=== PATIENT | male | born 1990 | race American Indian/Alaskan Native ===

== ENCOUNTER 2017-04-07 00:36 | Emergency (ER) | payer OTHER ==
[2017-04-07 01:50] LABS: Basophils % (Auto) 0.5 % (0.0-1.8); Hematocrit 44.9 % (35.5-45.6); Hemoglobin 15.1 gm/dl (11.8-15.2); Mean Corpuscular HGB Conc 34 % (32-34); Mean Corpuscular Hemoglobin 29 pg (28-32); Mean Corpuscular Volume 85 fl (84-94); Platelet Count 301 K/mm3 (140-440); Red Blood Count 5.31 M/mm3 (3.65-5.03); Red Cell Distribution Width 13.9 % (13.2-15.2); White Blood Count 12.4 K/mm3 (4.5-11.0)
[2017-04-07 02:07] LABS: Anion Gap 21 mmol/L; BUN/Creatinine Ratio 8; Blood Urea Nitrogen 10 mg/dL (9-20); Calcium 9.9 mg/dL (8.4-10.2); Carbon Dioxide 22 mmol/L (22-30); Chloride 101.9 mmol/L (98-107); Glucose 111 mg/dL (75-100); Potassium 4.2 mmol/L (3.6-5.0); Sodium 141 mmol/L (137-145)
[2017-04-07 04:35] VITALS: BP 127/76
== END 2017-04-07 12:10 | disposition left against medical advice (07) ==
LOC: ED 00:36
DX: R00.2 Palpitations (principal); Z53.21 Procedure and treatment not carried out due to patient leaving prior to being seen by health care provider
CPT/HCPCS: 36415; 80048; 84484; 85025; 93005; 93010

== ENCOUNTER 2017-04-27 14:14 | Inpatient (IN) | payer SELFPAY ==
[2017-04-27] MEDS ORDERED: NACL 0.9% 1000 ML 1,000 ML IV ONE ×3 (14:36→17:41)
[2017-04-27] MEDS ORDERED: ATIVAN IV ONE (14:41)
--- NOTE | 2017-04-27 15:14 | XRay Report ---
AP CHEST: HISTORY: chest pain AP view of the chest demonstrates a normal mediastinal and cardiac contour with clear lungs and normal bony and soft tissue structures. IMPRESSION: Unremarkable AP chest.
[2017-04-27 15:23] LABS: Hematocrit 43.3 % (35.5-45.6); Hemoglobin 13.7 gm/dl (11.8-15.2); Mean Corpuscular HGB Conc 32 % (32-34); Mean Corpuscular Hemoglobin 28 pg (28-32); Mean Corpuscular Volume 88 fl (84-94); Platelet Count 315 K/mm3 (140-440); Red Blood Count 4.92 M/mm3 (3.65-5.03); Red Cell Distribution Width 14.1 % (13.2-15.2)
[2017-04-27] MEDS ORDERED: GEODON IM ONE (15:31)
[2017-04-27 15:53] LABS: Calcium 9.1 mg/dL (8.4-10.2)
[2017-04-27 15:59] LABS: Basophils % (Manual) 0 % (0.0-1.8); Monocytes % (Manual) 7.5 % (0.0-7.3); Myelocytes # (Manual) 0.6 K/mm3; Total Cells Counted 200
[2017-04-27 16:00] LABS: Anisocytosis 1+; Poikilocytosis Few
[2017-04-27] MEDS ORDERED: ASPIRIN PO ONE (16:49)
--- NOTE | 2017-04-27 17:39 | Emergency Department Report ---
ED Altered Mental Status HPI - General Chief Complaint: Altered Mental Status Stated Complaint: AMS Time Seen by Provider: 04/27/17 14:35 Source: police, EMS Mode of arrival: Stretcher Limitations: Altered Mental Status - History of Present Illness Initial Comments: He is a 26-year-old [place] male who was found in the middle of the street in the rain yelling and diaphoretic patient admitted to cocaine use today. Patient very agitated and will not give any additional history. Patient will not answer whether he isn't having chest pain or shortness of breath patient is just very agitated and states "I think he's trying to kill me". Patient is repeating this over and over and will not give any additional issue of what happened today. MD Complaint: altered mental status, confusion, intoxication Severity: severe Associated Symptoms: diaphoresis - Related Data Previous Rx's Medication Instructions Recorded Last Taken Type Amoxicillin/Potassium Clav 1 each PO TID #21 tablet 02/13/17 Unknown Rx [Augmentin 500-125 Tablet] Allergies Allergy/AdvReac Type Severity Reaction Status Date / Time No Known Allergies Allergy Unverified 02/12/17 23:28 ED Review of Systems ROS: Stated complaint: AMS Other details as noted in HPI Comment: Unobtainable due to pts medical conditions ED Past Medical Hx - Past Medical History Additional medical history: chronic bronchitis - Social History Smoking Status: Current Every Day Smoker Substance Use Type: Alcohol - Medications Home Medications: Home Medications Medication Instructions Recorded Confirmed Last Taken Type Amoxicillin/Potassium Clav 1 each PO TID #21 tablet 02/13/17 Unknown Rx [Augmentin 500-125 Tablet] ED Physical Exam - General Limitations: Altered Mental Status General appearance: alert, anxious, in distress - Head Head exam: Present: atraumatic, normocephalic - Eye Eye exam: Present: normal appearance - ENT ENT exam: Present: mucous membranes moist - Neck Neck exam: Present: normal inspection - Respiratory Respiratory exam: Present: normal lung sounds bilaterally. Absent: respiratory distress, wheezes, rales, rhonchi - Cardiovascular Cardiovascular Exam: Present: normal rhythm, tachycardia. Absent: systolic murmur, diastolic murmur, rubs, gallop - GI/Abdominal GI/Abdominal exam: Present: soft, normal bowel sounds. Absent: distended, tenderness, guarding, rebound - Rectal Rectal exam: Present: deferred - Extremities Exam Extremities exam: Present: normal inspection - Back Exam Back exam: Present: normal inspection - Neurological Exam Neurological exam: Present: alert, oriented X3 - Psychiatric Psychiatric exam: Present: agitated, anxious, manic - Skin Skin exam: Present: warm, intact, normal color, diaphoretic. Absent: rash ED Course Vital Signs 04/27/17 15:46 Temperature 98.8 F Pulse Rate 130 H Respiratory 24 Rate Blood Pressure 98/58 [Right] O2 Sat by Pulse 100 Oximetry - Lab Data Result diagrams: 04/27/17 15:06 04/27/17 15:06 Lab Results 04/27/17 04/27/17 Range/Units 15:06 15:06 WBC 28.6 H (4.5-11.0) K/mm3 RBC 4.92 (3.65-5.03) M/mm3 Hgb 13.7 (11.8-15.2) gm/dl Hct 43.3 (35.5-45.6) % MCV 88 (84-94) fl MCH 28 (28-32) pg MCHC 32 (32-34) % RDW 14.1 (13.2-15.2) % Plt Count 315 (140-440) K/mm3 Lymph # Crew Mess Attendant Add Manual Diff Complete Total Counted 200 Seg Neuts % (Manual) 59.0 (40.0-70.0) % Band Neutrophils % 0 % Lymphocytes % (Manual) 29.5 (13.4-35.0) % Reactive Lymphs % (Man) 0 % Monocytes % (Manual) 7.5 H (0.0-7.3) % Eosinophils % (Manual) 2.0 (0.0-4.3) % Basophils % (Manual) 0 (0.0-1.8) % Metamyelocytes % 0 % Myelocytes % 2.0 % Promyelocytes % 0 % Blast Cells % 0 % Nucleated RBC % Not Reportable Seg Neutrophils # Man 16.9 H (1.8-7.7) K/mm3 Band Neutrophils # 0.0 K/mm3 Lymphocytes # (Manual) 8.4 H (1.2-5.4) K/mm3 Abs React Lymphs (Man) 0.0 K/mm3 Monocytes # (Manual) 2.1 H (0.0-0.8) K/mm3 Eosinophils # (Manual) 0.6 H (0.0-0.4) K/mm3 Basophils # (Manual) 0.0 (0.0-0.1) K/mm3 Metamyelocytes # 0.0 K/mm3 Myelocytes # 0.6 K/mm3 Promyelocytes # 0.0 K/mm3 Blast Cells # 0.0 K/mm3 WBC Morphology Not Reportable Hypersegmented Neuts Not Reportable Hyposegmented Neuts Not Reportable Hypogranular Neuts Not Reportable Smudge Cells Not Reportable Toxic Granulation Not Reportable Toxic Vacuolation Not Reportable Dohle Bodies Not Reportable Pelger-Huet Anomaly Not Reportable Lizette Rods Not Reportable Platelet Estimate Appears normal Clumped Platelets Not Reportable Plt Clumps, EDTA Not Reportable Large Platelets Not Reportable Giant Platelets Not Reportable Platelet Satelliting Not Reportable Plt Morphology Comment Not Reportable RBC Morphology Not Reportable Dimorphic RBCs Not Reportable Polychromasia Not Reportable Hypochromasia Not Reportable Poikilocytosis Few Anisocytosis 1+ Microcytosis Not Reportable Macrocytosis Not Reportable Spherocytes Not Reportable Pappenheimer Bodies Not Reportable Sickle Cells Not Reportable Target Cells Not Reportable Tear Drop Cells Not Reportable Ovalocytes Not Reportable Helmet Cells Not Reportable [place] Bodies Not Reportable [place] Rings Not Reportable [place] Cells Not Reportable Bite Cells Not Reportable Crenated Cell Not Reportable Elliptocytes Not Reportable Acanthocytes (Spur) Not Reportable Rouleaux Not Reportable Hemoglobin C Crystals Not Reportable Schistocytes Not Reportable Malaria parasites Not Reportable Noel Bodies Not Reportable Hem Pathologist Commnt No Sodium 144 (137-145) mmol/L Potassium 5.2 H (3.6-5.0) mmol/L Chloride 103.3 (98-107) mmol/L Carbon Dioxide 7 L* (22-30) mmol/L Anion Gap 39 mmol/L BUN 16 (9-20) mg/dL Creatinine 2.5 H (0.8-1.5) mg/dL Estimated GFR 38 ml/min BUN/Creatinine Ratio 6 % Glucose 159 H (75-100) mg/dL Calcium 9.1 (8.4-10.2) mg/dL Total Bilirubin 0.30 (0.1-1.2) mg/dL AST 54 H (5-40) units/L ALT 12 (7-56) units/L Alkaline Phosphatase 70 (35-129) units/L Troponin T 0.310 H* (0.00-0.029) ng/mL Total Protein 6.5 (6.3-8.2) g/dL Albumin 4.0 (3.9-5) g/dL Albumin/Globulin Ratio 1.6 % - EKG Data -: EKG Interpreted by Me Interpretation: other (EKG on arrival shows sinus tachycardia at 176 with right axis deviation and prolonged QT there is no obvious ST elevation or depression, interpretation 1438) - Radiology Data Radiology results: report reviewed No acute process - Medical Decision Making Patient is a 26-year-old asthmatic male who is presenting after cocaine ingestion with altered mental status and juan. Patient noted to have elevated blood pressure on arrival. Patient was given several doses of adenosine to slow him down to see if this was SVT versus a tachycardia. The patient was in just a sinus tachycardia. Patient gives several liters of normal saline to improve blood pressure and bring down the heart rate. Patient given Geodon for agitation. Patient has an elevated troponin most likely secondary to his cocaine use. Patient started on heparin Critical Care Time: Yes Critical care time in (mins) excluding proc time.: 30 Critical care attestation.: If time is entered above; I have spent that time in minutes in the direct care of this critically ill patient, excluding procedure time. ED Disposition Clinical Impression: NSTEMI (non-ST elevated myocardial infarction) Cocaine abuse with cocaine-induced psychotic disorder Qualifiers: Complication of substance-induced condition: with delusions Qualified Code(s): F14.150 - Cocaine abuse with cocaine-induced psychotic disorder with delusions Disposition: DC-09 OP ADMIT IP TO THIS HOSP Is pt being admited?: Yes Does the pt Need Aspirin: No Condition: Serious Referrals: PRIMARY CARE, [Primary Care Provider] - 3-5 Days
[2017-04-27] MEDS ORDERED: HEPARIN IV ONE (17:41)
[2017-04-27] MEDS ORDERED: NACL 0.9% 1000 ML 1,000 ML IV SCH (18:00)
[2017-04-27] MEDS ORDERED: FLUSH HEPARIN IV ONE (18:48)
[2017-04-27 19:08] LABS: Amphetamine Screen,Urine PRESUMPTIVE NEGATIVE; Cannabinoid Screen,Urine PRESUMPTIVE NEGATIVE; Methadone Screen,Urine PRESUMPTIVE NEGATIVE; Opiate Screen,Urine PRESUMPTIVE NEGATIVE
[2017-04-27] MEDS ORDERED: HEPARIN/ 0.45% NACL-25,000 UNIT/500 ML 25,000 UNIT/500 ML BAG ONE (19:24)
[2017-04-27] MEDS ORDERED: HEPARIN 10,000 UNITS/10 ML ONE (19:28)
[2017-04-27] MEDS: HEPARIN/ 0.45% NACL-25,000 UNIT/500 ML 25,000 UNIT/500 ML BAG IV SCH (19:31)
[2017-04-27 19:40] LABS: Benzodiazepines Screen,Urine PRESUMPTIVE POSITIVE; Cocaine Screen,Urine PRESUMPTIVE POSITIVE
[2017-04-27 21:06] LABS: Chol/HDL Ratio 6.51 %
--- NOTE | 2017-04-27 23:50 | History and Physical Report ---
History of Present Illness Date of examination: 04/27/17 Date of admission: 04/27/17 17:43 Chief complaint: CC Patient agitated and confused few hours History of present illness: History of Present Illness 26-year-old male found in the middle of the street in the rain yelling and Agitated. patient admitted to cocaine use today. Patient very agitated and will not give any additional history. Patient will not answer whether he is having chest pain or shortness of breath. Patient is just very agitated and states "I think he's trying to kill me". Patient is repeating this over and over and will not give any additional issue of what happened today. Altered mental status, confusion, intoxication Severity: severe Associated Symptoms: diaphoresis Past Medical History Additional medical history: chronic bronchitis Surg History Not available - Social History Smoking Status: Current Every Day Smoker Substance Use Type: Alcohol Cocaine use - Medications Home Medications: Home Medications Medication Instructions Recorded Confirmed Last Taken Type Amoxicillin/Potassium Clav 1 each PO TID #21 tablet 02/13/17 Unknown Rx [Augmentin 500-125 Tablet] Past History Past Medical History: No medical history Past Surgical History: No surgical history Social history: full code, other (cocaine use). denies: smoking Family history: hypertension Medications and Allergies Allergies Allergy/AdvReac Type Severity Reaction Status Date / Time No Known Allergies Allergy Unverified 02/12/17 23:28 Home Medications Medication Instructions Recorded Confirmed Last Taken Type No Known Home Medications [No 04/27/17 04/27/17 Unknown History Reported Home Medications] Active Meds: Active Medications Heparin Sodium/Sodium Chloride (Heparin/ 0.45% Nacl-25,000 Unit/500 Ml) 25,000 unit in 500 mls @ 20 mls/hr IV TITRATE EMERY; 1,000 UNITS/HR PRN Reason: Protocol Last Admin: 04/27/17 19:31 Dose: 1,000 units/hr, 20 mls/hr Sodium Chloride (Nacl 0.9% 1000 Ml) 1,000 mls @ 42 mls/hr IV ONCE ONE Stop: 04/28/17 17:29 Last Admin: 04/27/17 19:52 Dose: 42 mls/hr Sodium Chloride (Nacl 0.9% 1000 Ml) 1,000 mls @ 150 mls/hr IV DIRECT EMERY Review of Systems All systems: negative Cardiovascular: no chest pain, no orthopnea Respiratory: no cough Gastrointestinal: no abdominal pain, no nausea, no vomiting, no diarrhea, no constipation Genitourinary Male: no dysuria, no hematuria, no flank pain, no discharge, no urinary frequency, no urinary hesitancy Integumentary: no rash, no pruritis, no redness, no sores Neurological: no seizures, no syncope Psychiatric: disorientation, confusion, irritability Exam - Constitutional Vitals: Temp Pulse Resp BP Pulse Ox 97.5 F L 92 H 20 118/60 98 04/27/17 21:10 04/27/17 21:10 04/27/17 21:10 04/27/17 21:10 04/27/17 21:10 General appearance: Present: no acute distress, mild distress, well-nourished - EENT Eyes: Present: PERRL ENT: hearing intact, clear oral mucosa - Neck Neck: Present: supple, normal ROM - Respiratory Respiratory effort: normal Respiratory: bilateral: CTA - Cardiovascular Heart rate: 110 Rhythm: regular Heart Sounds: Present: S1 & S2. Absent: rub, click - Extremities Extremities: no ischemia, pulses intact, pulses symmetrical, No edema Peripheral Pulses: within normal limits - Abdominal General gastrointestinal: Present: soft, non-tender, non-distended, normal bowel sounds Male genitourinary: Present: normal - Integumentary Integumentary: Present: clear, warm, dry - Musculoskeletal Musculoskeletal: gait normal, strength equal bilaterally - Psychiatric Psychiatric: agitated, other (Cofused Altered sensorium) - Neurologic Neurologic: CNII-XII intact, moves all extremities - Allied Health Allied health notes reviewed: nursing, case management Results - Labs CBC & Chem 7: 04/27/17 15:06 04/27/17 15:06 Labs: Laboratory Last Values WBC 28.6 K/mm3 (4.5-11.0) H 04/27/17 15:06 RBC 4.92 M/mm3 (3.65-5.03) 04/27/17 15:06 Hgb 13.7 gm/dl (11.8-15.2) 04/27/17 15:06 Hct 43.3 % (35.5-45.6) 04/27/17 15:06 MCV 88 fl (84-94) 04/27/17 15:06 MCH 28 pg (28-32) 04/27/17 15:06 MCHC 32 % (32-34) 04/27/17 15:06 RDW 14.1 % (13.2-15.2) 04/27/17 15:06 Plt Count 315 K/mm3 (140-440) 04/27/17 15:06 Lymph # Rn Staff 04/27/17 15:06 Add Manual Diff Complete 04/27/17 15:06 Total Counted 200 04/27/17 15:06 Seg Neuts % (Manual) 59.0 % (40.0-70.0) 04/27/17 15:06 Band Neutrophils % 0 % 04/27/17 15:06 Lymphocytes % (Manual) 29.5 % (13.4-35.0) 04/27/17 15:06 Reactive Lymphs % (Man) 0 % 04/27/17 15:06 Monocytes % (Manual) 7.5 % (0.0-7.3) H 04/27/17 15:06 Eosinophils % (Manual) 2.0 % (0.0-4.3) 04/27/17 15:06 Basophils % (Manual) 0 % (0.0-1.8) 04/27/17 15:06 Metamyelocytes % 0 % 04/27/17 15:06 Myelocytes % 2.0 % 04/27/17 15:06 Promyelocytes % 0 % 04/27/17 15:06 Blast Cells % 0 % 04/27/17 15:06 Nucleated RBC % Not Reportable 04/27/17 15:06 Seg Neutrophils # Man 16.9 K/mm3 (1.8-7.7) H 04/27/17 15:06 Band Neutrophils # 0.0 K/mm3 04/27/17 15:06 Lymphocytes # (Manual) 8.4 K/mm3 (1.2-5.4) H 04/27/17 15:06 Abs React Lymphs (Man) 0.0 K/mm3 04/27/17 15:06 Monocytes # (Manual) 2.1 K/mm3 (0.0-0.8) H 04/27/17 15:06 Eosinophils # (Manual) 0.6 K/mm3 (0.0-0.4) H 04/27/17 15:06 Basophils # (Manual) 0.0 K/mm3 (0.0-0.1) 04/27/17 15:06 Metamyelocytes # 0.0 K/mm3 04/27/17 15:06 Myelocytes # 0.6 K/mm3 04/27/17 15:06 Promyelocytes # 0.0 K/mm3 04/27/17 15:06 Blast Cells # 0.0 K/mm3 04/27/17 15:06 WBC Morphology Not Reportable 04/27/17 15:06 Hypersegmented Neuts Not Reportable 04/27/17 15:06 Hyposegmented Neuts Not Reportable 04/27/17 15:06 Hypogranular Neuts Not Reportable 04/27/17 15:06 Smudge Cells Not Reportable 04/27/17 15:06 Toxic Granulation Not Reportable 04/27/17 15:06 Toxic Vacuolation Not Reportable 04/27/17 15:06 Dohle Bodies Not Reportable 04/27/17 15:06 Pelger-Huet Anomaly Not Reportable 04/27/17 15:06 Lizette Rods Not Reportable 04/27/17 15:06 Platelet Estimate Appears normal 04/27/17 15:06 Clumped Platelets Not Reportable 04/27/17 15:06 Plt Clumps, EDTA Not Reportable 04/27/17 15:06 Large Platelets Not Reportable 04/27/17 15:06 Giant Platelets Not Reportable 04/27/17 15:06 Platelet Satelliting Not Reportable 04/27/17 15:06 Plt Morphology Comment Not Reportable 04/27/17 15:06 RBC Morphology Not Reportable 04/27/17 15:06 Dimorphic RBCs Not Reportable 04/27/17 15:06 Polychromasia Not Reportable 04/27/17 15:06 Hypochromasia Not Reportable 04/27/17 15:06 Poikilocytosis Few 04/27/17 15:06 Anisocytosis 1+ 04/27/17 15:06 Microcytosis Not Reportable 04/27/17 15:06 Macrocytosis Not Reportable 04/27/17 15:06 Spherocytes Not Reportable 04/27/17 15:06 Pappenheimer Bodies Not Reportable 04/27/17 15:06 Sickle Cells Not Reportable 04/27/17 15:06 Target Cells Not Reportable 04/27/17 15:06 Tear Drop Cells Not Reportable 04/27/17 15:06 Ovalocytes Not Reportable 04/27/17 15:06 Helmet Cells Not Reportable 04/27/17 15:06 Conner-[place] Bodies Not Reportable 04/27/17 15:06 [place] Rings Not Reportable 04/27/17 15:06 [place] Cells Not Reportable 04/27/17 15:06 Bite Cells Not Reportable 04/27/17 15:06 Crenated Cell Not Reportable 04/27/17 15:06 Elliptocytes Not Reportable 04/27/17 15:06 Acanthocytes (Spur) Not Reportable 04/27/17 15:06 Rouleaux Not Reportable 04/27/17 15:06 Hemoglobin C Crystals Not Reportable 04/27/17 15:06 Schistocytes Not Reportable 04/27/17 15:06 Malaria parasites Not Reportable 04/27/17 15:06 Noel Bodies Not Reportable 04/27/17 15:06 Hem Pathologist Commnt No 04/27/17 15:06 Sodium 144 mmol/L (137-145) 04/27/17 15:06 Potassium 5.2 mmol/L (3.6-5.0) H 04/27/17 15:06 Chloride 103.3 mmol/L (98-107) 04/27/17 15:06 Carbon Dioxide 7 mmol/L (22-30) L* 04/27/17 15:06 Anion Gap 39 mmol/L 04/27/17 15:06 BUN 16 mg/dL (9-20) 04/27/17 15:06 Creatinine 2.5 mg/dL (0.8-1.5) H 04/27/17 15:06 Estimated GFR 38 ml/min 04/27/17 15:06 BUN/Creatinine Ratio 6 % 04/27/17 15:06 Glucose 159 mg/dL (75-100) H 04/27/17 15:06 Calcium 9.1 mg/dL (8.4-10.2) 04/27/17 15:06 Total Bilirubin 0.30 mg/dL (0.1-1.2) 04/27/17 15:06 AST 54 units/L (5-40) H 04/27/17 15:06 ALT 12 units/L (7-56) 04/27/17 15:06 Alkaline Phosphatase 70 units/L (35-129) 04/27/17 15:06 Total Creatine Kinase 1724 units/L (55-170) H 04/27/17 15:06 Troponin T 0.310 ng/mL (0.00-0.029) H* 04/27/17 15:06 Total Protein 6.5 g/dL (6.3-8.2) 04/27/17 15:06 Albumin 4.0 g/dL (3.9-5) 04/27/17 15:06 Albumin/Globulin Ratio 1.6 % 04/27/17 15:06 Triglycerides 93 mg/dL (2-149) 04/27/17 15:06 Cholesterol 202 mg/dL (50-199) H 04/27/17 15:06 LDL Cholesterol Direct 153 mg/dL (50-130) H 04/27/17 15:06 HDL Cholesterol 31 mg/dL (40-59) L 04/27/17 15:06 Cholesterol/HDL Ratio 6.51 % 04/27/17 15:06 Urine Opiates Screen Presumptive negative 04/27/17 15:36 Urine Methadone Screen Presumptive negative 04/27/17 15:36 Ur Barbiturates Screen Presumptive negative 04/27/17 15:36 Ur Phencyclidine Scrn Presumptive negative 04/27/17 15:36 Ur Amphetamines Screen Presumptive negative 04/27/17 15:36 U Benzodiazepines Scrn Presumptive positive 04/27/17 15:36 Urine Cocaine Screen Presumptive positive 04/27/17 15:36 U Marijuana (THC) Screen Presumptive negative 04/27/17 15:36 Drugs of Abuse Note Disclamer 04/27/17 15:36 - Imaging and Cardiology EKG: report reviewed (Sinus Tach 174) Assessment and Plan Advance Directives: Yes (Full code) VTE prophylaxis?: Chemical Plan of care discussed with patient/family: Yes - Patient Problems (1) Encephalopathy acute Current Visit: Yes Status: Acute Plan to address problem: Sec to Cocaine use (2) Cocaine abuse with cocaine-induced psychotic disorder Current Visit: Yes Status: Acute Qualifiers: Complication of substance-induced condition: with delusions Qualified Code( s): F14.150 - 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 Troponin high along with CK of 1724 Will trend Troponin Lexiscan if necessary Patient in Tachycardia sec to Dehydration and cocaine use and withdrawal Mental health consult (5) Metabolic acidosis Current Visit: Yes Status: Acute Plan to address problem: Bicarb and iv fluids (6) CAIO (acute kidney injury) Current Visit: Yes Status: Acute Plan to address problem: IV fluids for now (7) Leukocytosis Current Visit: Yes Status: Acute Plan to address problem: Possible Demargination Started on Rocephin empirically. Maybe d/c'd in 48 hrs if culturres negative (8) DVT prophylaxis Current Visit: Yes Status: Acute Plan to address problem: lovenox 40 sq qd
[2017-04-28] MEDS ORDERED: TYLENOL PO PRN (03:08)
[2017-04-28] MEDS ORDERED: MORPHINE IV PRN (03:08)
[2017-04-28] MEDS ORDERED: ZOFRAN IV PRN (03:08)
[2017-04-28] MEDS ORDERED: MILK OF MAGNESIA PO PRN (03:08)
[2017-04-28] MEDS ORDERED: DULCOLAX PR PRN (03:08)
[2017-04-28] MEDS ORDERED: D5NS 1,000 ML IV SCH (04:00)
[2017-04-28 06:39] LABS: INR 2.45 (0.87-1.13); Partial Thromboplastin Time 42.9 Sec. (24.2-36.6)
[2017-04-28 06:41] LABS: INR 2.52 (0.87-1.13)
[2017-04-28 06:42] LABS: Partial Thromboplastin Time 46.9 Sec. (24.2-36.6)
[2017-04-28] MEDS: HEPARIN/ 0.45% NACL-25,000 UNIT/500 ML 25,000 UNIT/500 ML BAG IV SCH (06:59)
[2017-04-28 07:09] LABS: Heparin anti-factor XA < 0.10 U.I./ml (0.3-0.7)
[2017-04-28] MEDS ORDERED: cefTRIAXone 2 GM in NACL 0.9% 20 ML IV SCH (10:00)
[2017-04-28] MEDS ORDERED: ROCEPHIN/NS 2 GM/100 ML 2 GM/100 ML BAG IV SCH (10:00)
--- NOTE | 2017-04-28 11:09 | Progress Note ---
Assessment and Plan Assessment and plan: 26-year-old male found in the middle of the street in the rain yelling and Agitated. patient admitted to cocaine use today. Patient very agitated and will not give any additional history. Patient will not answer whether he is having chest pain or shortness of breath. Patient is just very agitated and states "I think he's trying to kill me". Patient is repeating this over and over and will not give any additional issue of what happened today. toxic Encephalopathy acute Sec to Cocaine use Cocaine abuse with cocaine-induced psychotic disorder IV fluids and CIWA protocol consult Hyperkalemia Mild IV fluids for now Recheck K level NSTEMI (non-ST elevated myocardial infarction) given cocaine use, on heparin drip, cardiology consult Metabolic acidosis Bicarb and iv fluids CAIO (acute kidney injury)/vasomotor nephropathy IV fluids and IV bicarbonates, nephrology consult and renal ultrasound has been ordered DVT prophylaxis lovenox 40 sq qd History Interval history: Review of systems Constitutional: No fevers, no malaise, no joint pains CVS: No chest pain, no orthopnea, no dyspnea on exertion, no pedal edema GI: No abdominal pain, no diarrhea, no vomiting, no constipation Respiratory: No shortness of breath, no wheezing, no coughing Hospitalist Physical - Physical exam Narrative exam: General.: Appears well, no distress, nontoxic HEENT: Moist mucous membranes, extraocular muscles intact, no lymphadenopathy Neck: supple Cardiac: S1-S2 heard Lungs: clear to auscultation bilaterally Abdomen: soft , nontender, nondistended, bowel sounds positive Extremities: no edema clubbing or cyanosis Skin: no rash or lesions Neurologic: no gross focal deficits Psych: appropriate behavior, appropriate mood, corporative, judgment intact - Constitutional Vitals: Temp Pulse Resp BP Pulse Ox 98.6 F 101 H 20 152/91 98 04/28/17 06:14 04/28/17 09:08 04/28/17 08:48 04/28/17 06:14 04/28/17 10:07 General appearance: Present: no acute distress, mild distress, well-nourished Results - Labs CBC & Chem 7: 04/28/17 12:10 04/28/17 12:10 Labs: Laboratory Last Values WBC 28.6 K/mm3 (4.5-11.0) H 04/27/17 15:06 RBC 4.92 M/mm3 (3.65-5.03) 04/27/17 15:06 Hgb 13.7 gm/dl (11.8-15.2) 04/27/17 15:06 Hct 43.3 % (35.5-45.6) 04/27/17 15:06 MCV 88 fl (84-94) 04/27/17 15:06 MCH 28 pg (28-32) 04/27/17 15:06 MCHC 32 % (32-34) 04/27/17 15:06 RDW 14.1 % (13.2-15.2) 04/27/17 15:06 Plt Count 315 K/mm3 (140-440) 04/27/17 15:06 Lymph # Histology Aide 04/27/17 15:06 Add Manual Diff Complete 04/27/17 15:06 Total Counted 200 04/27/17 15:06 Seg Neuts % (Manual) 59.0 % (40.0-70.0) 04/27/17 15:06 Band Neutrophils % 0 % 04/27/17 15:06 Lymphocytes % (Manual) 29.5 % (13.4-35.0) 04/27/17 15:06 Reactive Lymphs % (Man) 0 % 04/27/17 15:06 Monocytes % (Manual) 7.5 % (0.0-7.3) H 04/27/17 15:06 Eosinophils % (Manual) 2.0 % (0.0-4.3) 04/27/17 15:06 Basophils % (Manual) 0 % (0.0-1.8) 04/27/17 15:06 Metamyelocytes % 0 % 04/27/17 15:06 Myelocytes % 2.0 % 04/27/17 15:06 Promyelocytes % 0 % 04/27/17 15:06 Blast Cells % 0 % 04/27/17 15:06 Nucleated RBC % Not Reportable 04/27/17 15:06 Seg Neutrophils # Man 16.9 K/mm3 (1.8-7.7) H 04/27/17 15:06 Band Neutrophils # 0.0 K/mm3 04/27/17 15:06 Lymphocytes # (Manual) 8.4 K/mm3 (1.2-5.4) H 04/27/17 15:06 Abs React Lymphs (Man) 0.0 K/mm3 04/27/17 15:06 Monocytes # (Manual) 2.1 K/mm3 (0.0-0.8) H 04/27/17 15:06 Eosinophils # (Manual) 0.6 K/mm3 (0.0-0.4) H 04/27/17 15:06 Basophils # (Manual) 0.0 K/mm3 (0.0-0.1) 04/27/17 15:06 Metamyelocytes # 0.0 K/mm3 04/27/17 15:06 Myelocytes # 0.6 K/mm3 04/27/17 15:06 Promyelocytes # 0.0 K/mm3 04/27/17 15:06 Blast Cells # 0.0 K/mm3 04/27/17 15:06 WBC Morphology Not Reportable 04/27/17 15:06 Hypersegmented Neuts Not Reportable 04/27/17 15:06 Hyposegmented Neuts Not Reportable 04/27/17 15:06 Hypogranular Neuts Not Reportable 04/27/17 15:06 Smudge Cells Not Reportable 04/27/17 15:06 Toxic Granulation Not Reportable 04/27/17 15:06 Toxic Vacuolation Not Reportable 04/27/17 15:06 Dohle Bodies Not Reportable 04/27/17 15:06 Pelger-Huet Anomaly Not Reportable 04/27/17 15:06 Lizette Rods Not Reportable 04/27/17 15:06 Platelet Estimate Appears normal 04/27/17 15:06 Clumped Platelets Not Reportable 04/27/17 15:06 Plt Clumps, EDTA Not Reportable 04/27/17 15:06 Large Platelets Not Reportable 04/27/17 15:06 Giant Platelets Not Reportable 04/27/17 15:06 Platelet Satelliting Not Reportable 04/27/17 15:06 Plt Morphology Comment Not Reportable 04/27/17 15:06 RBC Morphology Not Reportable 04/27/17 15:06 Dimorphic RBCs Not Reportable 04/27/17 15:06 Polychromasia Not Reportable 04/27/17 15:06 Hypochromasia Not Reportable 04/27/17 15:06 Poikilocytosis Few 04/27/17 15:06 Anisocytosis 1+ 04/27/17 15:06 Microcytosis Not Reportable 04/27/17 15:06 Macrocytosis Not Reportable 04/27/17 15:06 Spherocytes Not Reportable 04/27/17 15:06 Pappenheimer Bodies Not Reportable 04/27/17 15:06 Sickle Cells Not Reportable 04/27/17 15:06 Target Cells Not Reportable 04/27/17 15:06 Tear Drop Cells Not Reportable 04/27/17 15:06 Ovalocytes Not Reportable 04/27/17 15:06 Helmet Cells Not Reportable 04/27/17 15:06 Conner-Reform Bodies Not Reportable 04/27/17 15:06 [place] Rings Not Reportable 04/27/17 15:06 [place] Cells Not Reportable 04/27/17 15:06 Bite Cells Not Reportable 04/27/17 15:06 Crenated Cell Not Reportable 04/27/17 15:06 Elliptocytes Not Reportable 04/27/17 15:06 Acanthocytes (Spur) Not Reportable 04/27/17 15:06 Rouleaux Not Reportable 04/27/17 15:06 Hemoglobin C Crystals Not Reportable 04/27/17 15:06 Schistocytes Not Reportable 04/27/17 15:06 Malaria parasites Not Reportable 04/27/17 15:06 Noel Bodies Not Reportable 04/27/17 15:06 Hem Pathologist Commnt No 04/27/17 15:06 PT 28.1 Sec. (12.2-14.9) H 04/28/17 05:30 INR 2.45 (0.87-1.13) H 04/28/17 05:30 APTT 42.9 Sec. (24.2-36.6) H 04/28/17 05:30 Heparin Anti-Xa Level < 0.10 U.I./ml (0.3-0.7) L 04/28/17 05:30 Sodium 144 mmol/L (137-145) 04/27/17 15:06 Potassium 5.2 mmol/L (3.6-5.0) H 04/27/17 15:06 Chloride 103.3 mmol/L (98-107) 04/27/17 15:06 Carbon Dioxide 7 mmol/L (22-30) L* 04/27/17 15:06 Anion Gap 39 mmol/L 04/27/17 15:06 BUN 16 mg/dL (9-20) 04/27/17 15:06 Creatinine 2.5 mg/dL (0.8-1.5) H 04/27/17 15:06 Estimated GFR 38 ml/min 04/27/17 15:06 BUN/Creatinine Ratio 6 % 04/27/17 15:06 Glucose 159 mg/dL (75-100) H 04/27/17 15:06 Calcium 9.1 mg/dL (8.4-10.2) 04/27/17 15:06 Total Bilirubin 0.30 mg/dL (0.1-1.2) 04/27/17 15:06 AST 54 units/L (5-40) H 04/27/17 15:06 ALT 12 units/L (7-56) 04/27/17 15:06 Alkaline Phosphatase 70 units/L (35-129) 04/27/17 15:06 Total Creatine Kinase 1724 units/L (55-170) H 04/27/17 15:06 Troponin T 0.777 ng/mL (0.00-0.029) H* D 04/28/17 05:30 Total Protein 6.5 g/dL (6.3-8.2) 04/27/17 15:06 Albumin 4.0 g/dL (3.9-5) 04/27/17 15:06 Albumin/Globulin Ratio 1.6 % 04/27/17 15:06 Triglycerides 93 mg/dL (2-149) 04/27/17 15:06 Cholesterol 202 mg/dL (50-199) H 04/27/17 15:06 LDL Cholesterol Direct 153 mg/dL (50-130) H 04/27/17 15:06 HDL Cholesterol 31 mg/dL (40-59) L 04/27/17 15:06 Cholesterol/HDL Ratio 6.51 % 04/27/17 15:06 Urine Opiates Screen Presumptive negative 04/27/17 15:36 Urine Methadone Screen Presumptive negative 04/27/17 15:36 Ur Barbiturates Screen Presumptive negative 04/27/17 15:36 Ur Phencyclidine Scrn Presumptive negative 04/27/17 15:36 Ur Amphetamines Screen Presumptive negative 04/27/17 15:36 U Benzodiazepines Scrn Presumptive positive 04/27/17 15:36 Urine Cocaine Screen Presumptive positive 04/27/17 15:36 U Marijuana (THC) Screen Presumptive negative 04/27/17 15:36 Drugs of Abuse Note Disclamer 04/27/17 15:36 Blood Type A POSITIVE 04/27/17 05:30 Antibody Screen Negative 04/27/17 05:30
[2017-04-28 12:22] LABS: Hematocrit 40.8 % (35.5-45.6); Hemoglobin 13.2 gm/dl (11.8-15.2); Mean Corpuscular HGB Conc 33 % (32-34); Mean Corpuscular Hemoglobin 28 pg (28-32); Mean Corpuscular Volume 86 fl (84-94); Platelet Count 194 K/mm3 (140-440); Red Blood Count 4.77 M/mm3 (3.65-5.03); Red Cell Distribution Width 14.5 % (13.2-15.2)
[2017-04-28] MEDS ORDERED: ASPIRIN PO SCH (13:00)
[2017-04-28 13:33] LABS: Calcium 7.2 mg/dL (8.4-10.2)
[2017-04-28 14:53] VITALS: BP 133/62
[2017-04-28] MEDS ORDERED: SODIUM BICARBONATE 150 MEQ in D5W 1,000 ML IV SCH (15:00)
--- NOTE | 2017-04-28 16:09 | Discharge Summary ---
Providers - Providers Date of Admission: 04/27/17 17:43 Attending physician: SHELIA ROE MD 04/28/17 03:24 Consult to Mental Health [CONS] Routine Reason For Exam: cocaine use and agitation Place consult to:: Mental health Notified:: Cadence FORD 04/28/17 08:17 Consult to Physician [CONS] Routine Consulting Provider: TOBI RUSSO Reason For Exam: acs Place consult to:: Dr. Russo Notified:: Cadence FORD Phone number called:: Was contact made?: Yes If yes, spoke with:: [place] Time called:: 09:20 04/28/17 14:10 Consult to Physician [CONS] Routine Consulting Provider: CLARICE CHAVIRA Reason For Exam: [place] Place consult to:: Dr. Chavira Notified:: Cadence FORD Phone number called:: Was contact made?: Yes If yes, spoke with:: answering service-transfered to Dr. Chavira Time called:: 15:03 Primary care physician: FOLLOW UP CLERK Hospitalization Condition: Serious Hospital course: 26-year-old male found in the middle of the street in the rain yelling and Agitated. He had recently been started on cocaine. After which she was behaving erratically. He was admitted to the hospital , he received IV fluids. He was found to have significant acute kidney injury and metabolic acidosis. The patient was receiving IV fluids and was planned for bicarbonate drip. He did have elevated troponin which was most likely due to non-STEMI from cocaine use. He was planned for cardiology consult, nephrology consult and renal ultrasound. But the patient's mentation improved. He woke up and stated that he did not want to be in the hospital anymore and that he felt fine. He then signed himself out AGAINST MEDICAL ADVICE and left the hospital. Discharge diagnosis Acute toxic encephalopathy Cocaine abuse Cocaine induced psychotic disorder Non-STEMI Hyperkalemia Acute kidney injury/vasomotor nephropathy Metabolic acidosis Disposition: DC-07 LEFT AGAINST MED ADVICE Time spent for discharge: 33 minutes Core Measure Documentation - Palliative Care Palliative Care/ Comfort Measures: Not Applicable - Core Measures Any of the following diagnoses?: none Exam - Physical Exam Narrative exam: General.: Appears well, no distress, nontoxic HEENT: Moist mucous membranes, extraocular muscles intact, no lymphadenopathy Neck: supple Cardiac: S1-S2 heard Lungs: clear to auscultation bilaterally Abdomen: soft , nontender, nondistended, bowel sounds positive Extremities: no edema clubbing or cyanosis Skin: no rash or lesions Neurologic: no gross focal deficits Psych: appropriate behavior, appropriate mood, corporative, judgment intact - Constitutional Vitals: Temp Pulse Resp BP Pulse Ox 98.8 F 105 H 18 133/62 98 04/28/17 09:24 04/28/17 09:24 04/28/17 09:24 04/28/17 09:24 04/28/17 10:07 Plan Follow up with: PRIMARY CAREMD [Primary Care Provider] - 3-5 Days Forms: AMA Form
== END 2017-04-28 15:56 | disposition left against medical advice (07) | DRG 280 ==
LOC: ED 14:14 → 4A 17:43
PROVIDERS: ADMIT Internal Medicine; ATTEND Internal Medicine
DX: I21.4 Non-ST elevation (NSTEMI) myocardial infarction (principal); G92 Toxic encephalopathy; N17.0 Acute kidney failure with tubular necrosis; E87.2 Acidosis; F14.159 Cocaine abuse with cocaine-induced psychotic disorder, unspecified; F17.200 Nicotine dependence, unspecified, uncomplicated; J42 Unspecified chronic bronchitis; F14.19 Cocaine abuse with unspecified cocaine-induced disorder; E87.5 Hyperkalemia; D72.829 Elevated white blood cell count, unspecified; Z88.1 Allergy status to other antibiotic agents; Z79.2 Long term (current) use of antibiotics
CPT/HCPCS: 36415; 71045; 80048; 80053; 80061; 80307; 82550; 84484; 85007; 85025; 85027; 85520; 85610; 85730; 86850; 86900; 86901; 93005; 93010; 94760; J0696; J1642; J1644; J2060; J3486; J7030; J7042; J7070

== ENCOUNTER 2017-04-28 17:07 | Inpatient (IN) | payer OTHER ==
[2017-04-28 18:36] LABS: Hemoglobin 14.9 gm/dl (11.8-15.2); Mean Corpuscular HGB Conc 32 % (32-34); Mean Corpuscular Hemoglobin 28 pg (28-32); Mean Corpuscular Volume 89 fl (84-94); Platelet Count 175 K/mm3 (140-440); Red Blood Count 5.29 M/mm3 (3.65-5.03); Red Cell Distribution Width 14.9 % (13.2-15.2)
[2017-04-28 19:19] LABS: Basophils % (Manual) 0 % (0.0-1.8); Eosinophils % (Manual) 0 % (0.0-4.3); Total Cells Counted 100
[2017-04-28 19:20] LABS: Anisocytosis 1+
[2017-04-28 19:47] LABS: Albumin 3.7 g/dL (3.9-5); Calcium 7.5 mg/dL (8.4-10.2)
[2017-04-28] MEDS ORDERED: NACL 0.9% 1000 ML 1,000 ML IV ONE ×2 (20:26)
[2017-04-28] MEDS ORDERED: SODIUM BICARBONATE IV ONE (20:31)
--- NOTE | 2017-04-28 20:35 | Emergency Department Report ---
HPI - General Chief Complaint: Pain General Time Seen by Provider: 04/28/17 20:22 - HPI HPI: Room 8 The patient is a 26-year-old male presenting with a chief complaint of body aches. The patient was admitted to the hospital yesterday with metabolic encephalopathy secondary to cocaine use also associated with rhabdomyolysis and acute renal failure. The patient states he signed out AGAINST MEDICAL ADVICE earlier today because he thought he would "feel better." The patient states he continues to have body aches all over Location: [See above] Duration: [See above] Quality: Body aches Severity: Moderate Modifying factors: [see above] Context: [see above] Mode of transportation: [not driving] ED Past Medical Hx - Past Medical History Additional medical history: chronic bronchitis - Surgical History Past Surgical History?: No - Family History Family history: no significant - Social History Smoking Status: Current Every Day Smoker (1/2 pack per day) Substance Use Type: Alcohol (occasional), Cocaine - Medications Home Medications: Home Medications Medication Instructions Recorded Confirmed Last Taken Type No Known Home Medications [No 04/27/17 04/27/17 Unknown History Reported Home Medications] ED Review of Systems ROS: Stated complaint: BODY HURTS Other details as noted in HPI Musculoskeletal: myalgia Physical Exam - Physical Exam Vital Signs: Vital Signs 04/28/17 17:50 Temperature 98.8 F Pulse Rate 94 H Respiratory 18 Rate Blood Pressure 157/92 O2 Sat by Pulse 99 Oximetry Physical Exam: GENERAL: The patient is well-developed well-nourished male lying on stretcher not appearing to be in acute distress. [] HEENT: Normocephalic. Atraumatic. Extraocular motions are intact. Patient has moist mucous membranes. NECK: Supple. No meningitic signs are noted. There is no adenopathy noted. CHEST/LUNGS: Clear to auscultation. There is no respiratory distress noted. HEART/CARDIOVASCULAR: Regular. There is no tachycardia. There is no gallop rub or murmur. ABDOMEN: Abdomen is soft, nontender. Patient has normal bowel sounds. There is no abdominal distention. SKIN: There is no rash. There is no edema. There is no diaphoresis. NEURO: The patient is awake, alert, and oriented. The patient is cooperative. The patient has normal speech MUSCULOSKELETAL: There is no evidence of acute injury. ED Course Vital Signs 04/28/17 17:50 Temperature 98.8 F Pulse Rate 94 H Respiratory 18 Rate Blood Pressure 157/92 O2 Sat by Pulse 99 Oximetry - Consultations Consultation #1: 04/28/17 20:34 Nephrology paged 04/28/17 20:[address] Herrera- agrees with IV fluids and sodium bicarbonate. Recommends after 2 L bolus to initiate patient on normal saline at 150 mL/hour. Recommends renal ultrasound ED Medical Decision Making - Lab Data Result diagrams: 04/28/17 18:25 04/28/17 19:13 Laboratory Tests 04/28/17 04/28/17 18:25 19:13 WBC 20.3 H RBC 5.29 H Hgb 14.9 Hct 47.0 H D MCV 89 MCH 28 MCHC 32 RDW 14.9 Plt Count 175 Add Manual Diff Complete Total Counted 100 Seg Neutrophils % Breast Splitter Seg Neuts % (Manual) 91.0 H Band Neutrophils % 0 Lymphocytes % (Manual) 6.0 L Reactive Lymphs % (Man) 0 Monocytes % (Manual) 3.0 Eosinophils % (Manual) 0 Basophils % (Manual) 0 Metamyelocytes % 0 Myelocytes % 0 Promyelocytes % 0 Blast Cells % 0 Nucleated RBC % Not Reportable Seg Neutrophils # Man 18.5 H Band Neutrophils # 0.0 Lymphocytes # (Manual) 1.2 Abs React Lymphs (Man) 0.0 Monocytes # (Manual) 0.6 Eosinophils # (Manual) 0.0 Basophils # (Manual) 0.0 Metamyelocytes # 0.0 Myelocytes # 0.0 Promyelocytes # 0.0 Blast Cells # 0.0 WBC Morphology Not Reportable Hypersegmented Neuts Not Reportable Hyposegmented Neuts Not Reportable Hypogranular Neuts Not Reportable Smudge Cells Not Reportable Toxic Granulation Not Reportable Toxic Vacuolation Not Reportable Dohle Bodies Not Reportable Pelger-Huet Anomaly Not Reportable Lizette Rods Not Reportable Platelet Estimate Appears normal Clumped Platelets Not Reportable Plt Clumps, EDTA Not Reportable Large Platelets Not Reportable Giant Platelets Not Reportable Platelet Satelliting Not Reportable Plt Morphology Comment Not Reportable RBC Morphology Not Reportable Dimorphic RBCs Not Reportable Polychromasia Not Reportable Hypochromasia Not Reportable Poikilocytosis Not Reportable Anisocytosis 1+ Microcytosis Not Reportable Macrocytosis Not Reportable Spherocytes Not Reportable Pappenheimer Bodies Not Reportable Sickle Cells Not Reportable Target Cells Not Reportable Tear Drop Cells Not Reportable Ovalocytes Not Reportable Helmet Cells Not Reportable Conner-[place] Bodies Not Reportable [place] Rings Not Reportable [place] Cells Not Reportable Bite Cells Not Reportable Crenated Cell Not Reportable Elliptocytes Not Reportable Acanthocytes (Spur) Not Reportable Rouleaux Not Reportable Hemoglobin C Crystals Not Reportable Schistocytes Not Reportable Malaria parasites Not Reportable Noel Bodies Not Reportable Hem Pathologist Commnt No Sodium 139 Potassium 4.7 Chloride 103.6 Carbon Dioxide 11 L Anion Gap 29 BUN 45 H Creatinine 5.8 H Estimated GFR 14 BUN/Creatinine Ratio 8 Glucose 67 L Calcium 7.5 L Total Bilirubin 1.60 H AST 2868 H ALT 719 H Alkaline Phosphatase 108 Total Creatine Kinase 337470 H Troponin T 0.577 H* Total Protein 6.6 Albumin 3.7 L Albumin/Globulin Ratio 1.3 - EKG Data -: EKG Interpreted by Me EKG shows normal: sinus rhythm Rate: normal - EKG Data When compared to previous EKG there are: changes noted Interpretation: nonspecific ST-T wave lalito (T-wave inversions in leads 3 and aVF) - Differential Diagnosis rhabdomyolysis, acute renal failure Critical care attestation.: If time is entered above; I have spent that time in minutes in the direct care of this critically ill patient, excluding procedure time. ED Disposition Clinical Impression: Rhabdomyolysis, Acute renal failure Disposition: OP ADMIT IP TO THIS HOSP Is pt being admited?: Yes Does the pt Need Aspirin: No Condition: Serious Referrals: HEMALATHA GARCIA MD [Primary Care Provider] - 3-5 Days Time of Disposition: 20:41 (awaiting Hospitalist)
[2017-04-28] MEDS ORDERED: D50W (25GM) Vial IV ONE (21:00)
--- NOTE | 2017-04-28 21:43 | Ultrasound Report ---
FINAL REPORT EXAM: US RENAL BILAT HISTORY: acute renal failure COMPARISON: None available. TECHNIQUE: Several real-time grayscale and color Doppler images were obtained. FINDINGS: Right kidney measures 10.7 x 5.8 x 5.7 centimeters. Cortex 2 centimeters. Left kidney measures 11.3 x 6.4 x 6.1 centimeters. Cortex 2.1 centimeters. No focal renal lesion hydronephrosis. Punctate nonobstructive renal calculi could be obscured by renal sinus fat. Gross vascular flow to the kidneys. Visualize urinary bladder is partially decompressed. IMPRESSION: No gross focal renal lesion or hydronephrosis.
[2017-04-28] MEDS ORDERED: NACL 0.9% 1000 ML 1,000 ML IV SCH (22:00)
[2017-04-28] MEDS ORDERED: D50W (25GM) Syringe IV ONE (22:03)
[2017-04-28 22:07] LABS: Hematocrit 44.1 % (35.5-45.6); Hemoglobin 14.3 gm/dl (11.8-15.2)
[2017-04-28 22:19] LABS: Partial Thromboplastin Time 52.6 Sec. (24.2-36.6)
[2017-04-28 22:24] LABS: INR 5.15 (0.87-1.13)
--- NOTE | 2017-04-28 22:37 | History and Physical Report ---
History of Present Illness Date of examination: 04/28/17 Date of admission: 04/28/17 21:38 Chief complaint: Not feeling better History of present illness: 26-year-old -[place] male with medical history significant for cocaine abuse was admitted yesterday in the floor and he left AMA and came back to the emergency department complaining that he is feeling worse. Patient is complaining achy pain all over the body. Chest pain all over the chest 8/10 in intensity. Yesterday he was admitted for rhabdomyolysis, non-STEMI, acute renal failure, metabolic acidosis. When he presented in the emergency department CK is getting worse, fulminant hepatic failure, altered mental status , non-STEMI. Nephrology was consulted and recommended to put him on IV fluids and bicarbonate. Patient is confused and is not able to give detailed history but denied fever, chills, neck stiffness. Patient is able to take care of his airways. Review of system could not be obtained because of altered mental status. Past History Past Medical History: No medical history Past Surgical History: No surgical history Social history: smoking (cigarettes and cocaine) Family history: no significant family history Medications and Allergies Allergies Allergy/AdvReac Type Severity Reaction Status Date / Time No Known Allergies Allergy Verified 04/28/17 17:50 Home Medications Medication Instructions Recorded Confirmed Last Taken Type No Known Home Medications [No 04/27/17 04/27/17 Unknown History Reported Home Medications] Active Meds: Active Medications Heparin Sodium/Sodium Chloride (Heparin/ 0.45% Nacl-25,000 Unit/500 Ml) 25,000 unit in 500 mls @ 20 mls/hr IV TITRATE EMERY; 1,000 UNITS/HR PRN Reason: Protocol Sodium Chloride (Nacl 0.9% 1000 Ml) 1,000 mls @ 150 mls/hr IV DIRECT EMERY Stop: 05/01/17 04:39 Sodium Bicarbonate (Sodium Bicarbonate) 1,300 mg PO TID EMERY Review of Systems ROS unobtainable: due to mental status (Couldn't obtained due to confusion.) Exam - Physical Exam Narrative exam: Not in cardiopulmonary distress. The patient appeared well nourished and normally developed. Vital signs as documented. Head exam is unremarkable. No scleral icterus . Neck is without jugular venous distension, thyromegaly, or carotid bruits. Lungs are clear to auscultation. Cardiac exam reveals regular rate and Rhythm. First and second heart sounds normal. No murmurs, rubs or gallops. Abdominal exam reveals normal bowel sounds, no masses, no organomegaly and no aortic enlargement. Extremities are nonedematous and both femoral and pedal pulses are normal. OPERATIONS CLERK: Confused. - Constitutional Vitals: Temp Pulse Resp BP Pulse Ox 98.8 F 94 H 18 157/92 99 04/28/17 17:50 04/28/17 17:50 04/28/17 17:50 04/28/17 17:50 04/28/17 17:50 Results - Labs CBC & Chem 7: 04/28/17 21:55 04/28/17 19:13 Labs: Laboratory Last Values WBC 20.3 K/mm3 (4.5-11.0) H 04/28/17 18:25 RBC 5.29 M/mm3 (3.65-5.03) H 04/28/17 18:25 Hgb 14.3 gm/dl (11.8-15.2) 04/28/17 21:55 Hct 44.1 % (35.5-45.6) 04/28/17 21:55 MCV 89 fl (84-94) 04/28/17 18:25 MCH 28 pg (28-32) 04/28/17 18:25 MCHC 32 % (32-34) 04/28/17 18:25 RDW 14.9 % (13.2-15.2) 04/28/17 18:25 Plt Count 167 K/mm3 (140-440) 04/28/17 21:55 Add Manual Diff Complete 04/28/17 18:25 Total Counted 100 04/28/17 18:25 Seg Neutrophils % Heart Coordinator 04/28/17 18:25 Seg Neuts % (Manual) 91.0 % (40.0-70.0) H 04/28/17 18:25 Band Neutrophils % 0 % 04/28/17 18:25 Lymphocytes % (Manual) 6.0 % (13.4-35.0) L 04/28/17 18:25 Reactive Lymphs % (Man) 0 % 04/28/17 18:25 Monocytes % (Manual) 3.0 % (0.0-7.3) 04/28/17 18:25 Eosinophils % (Manual) 0 % (0.0-4.3) 04/28/17 18:25 Basophils % (Manual) 0 % (0.0-1.8) 04/28/17 18:25 Metamyelocytes % 0 % 04/28/17 18:25 Myelocytes % 0 % 04/28/17 18:25 Promyelocytes % 0 % 04/28/17 18:25 Blast Cells % 0 % 04/28/17 18:25 Nucleated RBC % Not Reportable 04/28/17 18:25 Seg Neutrophils # Man 18.5 K/mm3 (1.8-7.7) H 04/28/17 18:25 Band Neutrophils # 0.0 K/mm3 04/28/17 18:25 Lymphocytes # (Manual) 1.2 K/mm3 (1.2-5.4) 04/28/17 18:25 Abs React Lymphs (Man) 0.0 K/mm3 04/28/17 18:25 Monocytes # (Manual) 0.6 K/mm3 (0.0-0.8) 04/28/17 18:25 Eosinophils # (Manual) 0.0 K/mm3 (0.0-0.4) 04/28/17 18:25 Basophils # (Manual) 0.0 K/mm3 (0.0-0.1) 04/28/17 18:25 Metamyelocytes # 0.0 K/mm3 04/28/17 18:25 Myelocytes # 0.0 K/mm3 04/28/17 18:25 Promyelocytes # 0.0 K/mm3 04/28/17 18:25 Blast Cells # 0.0 K/mm3 04/28/17 18:25 WBC Morphology Not Reportable 04/28/17 18:25 Hypersegmented Neuts Not Reportable 04/28/17 18:25 Hyposegmented Neuts Not Reportable 04/28/17 18:25 Hypogranular Neuts Not Reportable 04/28/17 18:25 Smudge Cells Not Reportable 04/28/17 18:25 Toxic Granulation Not Reportable 04/28/17 18:25 Toxic Vacuolation Not Reportable 04/28/17 18:25 Dohle Bodies Not Reportable 04/28/17 18:25 Pelger-Huet Anomaly Not Reportable 04/28/17 18:25 Lizette Rods Not Reportable 04/28/17 18:25 Platelet Estimate Appears normal 04/28/17 18:25 Clumped Platelets Not Reportable 04/28/17 18:25 Plt Clumps, EDTA Not Reportable 04/28/17 18:25 Large Platelets Not Reportable 04/28/17 18:25 Giant Platelets Not Reportable 04/28/17 18:25 Platelet Satelliting Not Reportable 04/28/17 18:25 Plt Morphology Comment Not Reportable 04/28/17 18:25 RBC Morphology Not Reportable 04/28/17 18:25 Dimorphic RBCs Not Reportable 04/28/17 18:25 Polychromasia Not Reportable 04/28/17 18:25 Hypochromasia Not Reportable 04/28/17 18:25 Poikilocytosis Not Reportable 04/28/17 18:25 Anisocytosis 1+ 04/28/17 18:25 Microcytosis Not Reportable 04/28/17 18:25 Macrocytosis Not Reportable 04/28/17 18:25 Spherocytes Not Reportable 04/28/17 18:25 Pappenheimer Bodies Not Reportable 04/28/17 18:25 Sickle Cells Not Reportable 04/28/17 18:25 Target Cells Not Reportable 04/28/17 18:25 Tear Drop Cells Not Reportable 04/28/17 18:25 Ovalocytes Not Reportable 04/28/17 18:25 Helmet Cells Not Reportable 04/28/17 18:25 [place] Bodies Not Reportable 04/28/17 18:25 [place] Rings Not Reportable 04/28/17 18:25 [place] Cells Not Reportable 04/28/17 18:25 Bite Cells Not Reportable 04/28/17 18:25 Crenated Cell Not Reportable 04/28/17 18:25 Elliptocytes Not Reportable 04/28/17 18:25 Acanthocytes (Spur) Not Reportable 04/28/17 18:25 Rouleaux Not Reportable 04/28/17 18:25 Hemoglobin C Crystals Not Reportable 04/28/17 18:25 Schistocytes Not Reportable 04/28/17 18:25 Malaria parasites Not Reportable 04/28/17 18:25 Noel Bodies Not Reportable 04/28/17 18:25 Hem Pathologist Commnt No 04/28/17 18:25 PT 50.8 Sec. (12.2-14.9) H 04/28/17 21:55 INR 5.15 (0.87-1.13) H* 04/28/17 21:55 APTT 52.6 Sec. (24.2-36.6) H 04/28/17 21:55 Sodium 139 mmol/L (137-145) 04/28/17 19:13 Potassium 4.7 mmol/L (3.6-5.0) 04/28/17 19:13 Chloride 103.6 mmol/L (98-107) 04/28/17 19:13 Carbon Dioxide 11 mmol/L (22-30) L 04/28/17 19:13 Anion Gap 29 mmol/L 04/28/17 19:13 BUN 45 mg/dL (9-20) H 04/28/17 19:13 Creatinine 5.8 mg/dL (0.8-1.5) H 04/28/17 19:13 Estimated GFR 14 ml/min 04/28/17 19:13 BUN/Creatinine Ratio 8 % 04/28/17 19:13 Glucose 67 mg/dL (75-100) L 04/28/17 19:13 Calcium 7.5 mg/dL (8.4-10.2) L 04/28/17 19:13 Total Bilirubin 1.60 mg/dL (0.1-1.2) H 04/28/17 19:13 AST 2868 units/L (5-40) H 04/28/17 19:13 ALT 719 units/L (7-56) H 04/28/17 19:13 Alkaline Phosphatase 108 units/L (35-129) 04/28/17 19:13 Total Creatine Kinase 167871 units/L (55-170) H 04/28/17 19:13 Troponin T 0.577 ng/mL (0.00-0.029) H* 04/28/17 19:13 Total Protein 6.6 g/dL (6.3-8.2) 04/28/17 19:13 Albumin 3.7 g/dL (3.9-5) L 04/28/17 19:13 Albumin/Globulin Ratio 1.3 % 04/28/17 19:13 INR is 5 Assessment and Plan Assessment and plan: Toxic metabolic encephalopathy - UDS is positive for cocaine - Supportive care - CT head is pending Fulminant hepatic failure - Causes unknown - Elevated transaminitis, with elevated INR - Acute hepatic panel is pending - GI consulted Acute renal failure with metabolic acidosis - Likely vasomotor nephropathy - Nephrology consulted and recommended IV fluids and bicarbonate - Patient may need dialysis Rhabdomyolysis - Patient is on IV fluids - CK level is greater than 100,000 - Nephrology aware Leukocytosis - Likely reactive, trending down Non-STEMI - Patient is on heparin drip Elevated INR - Vitamin K given, recheck in the morning - We'll stop heparin drip if the patient has bleeding Prognosis - Guarded Disposition - Admit to telemetry floor Advance Directives: Yes VTE prophylaxis?: Chemical Plan of care discussed with patient/family: Yes
[2017-04-28] MEDS ORDERED: VITAMIN K (ADULT ONLY) IM ONE (22:42)
[2017-04-28 22:56] LABS: Hepatitis A Antibody IgM Non-Reactive (NonReactive); Hepatitis B Surface Antigen Non-Reactive (Negative)
[2017-04-28 23:23] LABS: Hepatitis B Core IgM Non-Reactive (NonReactive); Hepatitis C Virus Antibody Non-Reactive (NonReactive)
--- NOTE | 2017-04-29 00:26 | Cat Scan Report ---
FINAL REPORT EXAM: CT HEAD/BRAIN WO CON HISTORY: confusion COMPARISON: None available. TECHNIQUE: Axial images obtained skull base through vertex. FINDINGS: No acute intracranial hemorrhage, midline shift or pathologic extra axial fluid collection. Ventricles and cisterns are normal in size and configuration for the patient's age. Merritt-white differentiation preserved. Calvarium grossly intact. Ocular globes are grossly unremarkable. Mild mucosal thickening ethmoid air cells. Mastoid air cells are clear. IMPRESSION: No grossly acute intracranial abnormality.
[2017-04-29] MEDS: LOPRESSOR PO SCH ×3 (02:33→22:56)
--- NOTE | 2017-04-29 02:51 | Consultation ---
REFERRING PHYSICIAN: Hospitalist service. REASON FOR CONSULTATION: Elevated troponin. HISTORY OF PRESENT ILLNESS: The patient is a 26-year-old gentleman, who presented to the Emergency Room yesterday agitated, intoxicated, confused, and belligerent. I am unable to capture a history as he is agitated and keeps repeating different phrases over and over. History is obtained as per chart. He appears comfortable in general. PAST MEDICAL HISTORY: Unknown medical history. PAST SURGICAL HISTORY: Unknown surgical history. ALLERGIES: No known drug allergies. MEDICATIONS: Apparently no home medications REVIEW OF SYSTEMS: Still difficult to obtain as aforementioned. PHYSICAL EXAMINATION: VITAL SIGNS: Blood pressure is 140/80. He is afebrile. Tele reveals sinus rhythm in the 80s and 90s, O2 sat is 98% on room air. GENERAL: This is a young gentleman, disoriented. No apparent distress. HEENT: Sclerae are anicteric. PEERL. NECK: Supple. No mass or JVD. CHEST: Clear to auscultation bilaterally. Good air movement. CARDIOVASCULAR: Irregular rhythm, S1, S2. ABDOMEN: Soft, nontender, nondistended. Normoactive bowel sounds in 4 quadrants. No mass or bruits. EXTREMITIES: No cyanosis, clubbing, or edema. Good peripheral pulses. SKIN: Intact. No rashes. LABORATORY DATA: EKG shows sinus tachycardia, no acute ST segment shift. WBC is 28.6, hemoglobin is 13.7, hematocrit 43, platelets 315. INR is 2.5 ____, potassium 5.2, creatinine 2.5. CK is 1700. Unclear what the CK-MB is. Troponin is 0.3 and 0.7. His toxicology screen is positive for benzos and cocaine. ASSESSMENT AND PLAN: In summary, this is a 26-year-old gentleman, who is agitated, belligerent, disoriented with mildly elevated troponin in the setting of cocaine abuse, but also acute kidney injury and elevated CK. Unclear if this picture is more closely consistent with rhabdomyolysis. Repeat serial CK-MB and troponin as well as lactic acid, unclear why INR is elevated. Repeat EKG. He is chest pain free. Discontinue heparin for now. Continue aspirin. He is completely uncooperative and is not a candidate for any testing. Certainly needs psychiatric evaluation. We will follow along. JOB# [id number] SBSocorro/NTS
[2017-04-29 03:09] LABS: Amphetamine Screen,Urine PRESUMPTIVE NEGATIVE; Cannabinoid Screen,Urine PRESUMPTIVE NEGATIVE; Methadone Screen,Urine PRESUMPTIVE NEGATIVE; Opiate Screen,Urine PRESUMPTIVE NEGATIVE
[2017-04-29 03:36] LABS: Benzodiazepines Screen,Urine PRESUMPTIVE POSITIVE; Cocaine Screen,Urine PRESUMPTIVE POSITIVE
[2017-04-29 07:43] LABS: Hematocrit 41.2 % (35.5-45.6); Hemoglobin 13.4 gm/dl (11.8-15.2); Mean Corpuscular HGB Conc 33 % (32-34); Mean Corpuscular Hemoglobin 28 pg (28-32); Mean Corpuscular Volume 85 fl (84-94); Platelet Count 210 K/mm3 (140-440); Red Blood Count 4.85 M/mm3 (3.65-5.03); Red Cell Distribution Width 14.6 % (13.2-15.2)
[2017-04-29 07:58] LABS: Calcium 6.3 mg/dL (8.4-10.2)
[2017-04-29 08:05] LABS: INR 5.23 (0.87-1.13)
[2017-04-29] MEDS: HEPARIN/ 0.45% NACL-25,000 UNIT/500 ML 25,000 UNIT/500 ML BAG IV SCH (08:07)
[2017-04-29 08:41] LABS: Basophils % (Manual) 0 % (0.0-1.8); Eosinophils % (Manual) 0 % (0.0-4.3); Total Cells Counted 100
[2017-04-29 08:42] LABS: Anisocytosis 1+; Burr Cells Few
--- NOTE | 2017-04-29 09:43 | Progress Note ---
Assessment and Plan Assessment and plan: 26-year-old man with a past medical history of polysubstance abuse which includes cocaine and alcohol and tobacco. The patient was recently just admitted to the hospital, he was found in the street agitated and confused and yelling. He was admitted for toxic metabolic encephalopathy, cocaine abuse, acute kidney injury and metabolic acidosis and non-STEMI. The patient's mentation improved and he signed himself out AGAINST MEDICAL ADVICE. Only to return to the hospital the same day complaining of not feeling well, generalized muscle pains, generalized weakness. He now presents with fulminant liver failure, acute kidney failure, non-STEMI, rhabdomyolysis and metabolic acidosis. Acute Toxic metabolic encephalopathy - UDS is positive for cocaine - Supportive care - CT head within normal limits, image reviewed Fulminant hepatic failure -check tylenol level, etiology unclear at this time - Elevated transaminitis, with elevated INR -Hepatitis panel negative - GI consulted -Continue IV fluids Acute renal failure , likely due to vasomotor nephropathy and myoglobin toxicity with metabolic acidosis - Nephrology consulted and recommended IV fluids and bicarbonate - Patient may need dialysis -renal US wnl Non traumatic Rhabdomyolysis - Patient is on IV fluids - CK level is greater than 100,000 - Nephrology aware SIRS - Likely reactive, no evidence of infection Type 2 PA Case discussed with hide tanner. Unlikely to be from a cardiac etiology Heparin drip discontinued Elevated INR/Coagulopathy due to liver failure continue vitamin K daily, check INR daily INR 5.23 -plt count wnl, not cw DIC metabolic acidosis on bicarb drip Polysubstance abuse cocaine, etoh and tobacco will provide counseling when mentation improved Prognosis - Guarded The high probability of a clinically significant, sudden or life threatening deterioration of the [GI, hematologic, renal] system(s) required my full and direct attention, intervention and personal management. The aggregate critical care time was [45] minutes. This time is in addition to time spent performing reported procedures but includes the following: [] Data Review and interpretation [] Patient assessment and monitoring of vital signs [] Documentation [] Medication orders and management History Interval history: Patient remains confused groaning, and knows he is in the hospital and knows his name. -He states that he has pain all over, but doesn't await coming from -His nurse noticed that he vomited all the warts that he drank and had some coffee grounds in its No diarrhea, no fever, no shortness of breath, no chest pain Hospitalist Physical - Physical exam Narrative exam: General.: Appears well, no distress, nontoxic HEENT: Moist mucous membranes, extraocular muscles intact, no lymphadenopathy Neck: supple Cardiac: S1-S2 heard Lungs: clear to auscultation bilaterally Abdomen: soft , nontender, nondistended, bowel sounds positive Extremities: no edema clubbing or cyanosis Skin: no rash or lesions Neurologic: Moves all extremities, lethargic, obeys commands, unable to have a detailed conversation, as he keeps falling asleep Psych: Lethargic, obese commands, judgment is not intact - Constitutional Vitals: Temp Pulse Resp BP Pulse Ox 98.2 F 104 H 18 141/63 95 04/29/17 07:38 04/29/17 07:38 04/29/17 07:38 04/29/17 07:38 04/29/17 07:38 Results - Labs CBC & Chem 7: 04/29/17 06:55 04/29/17 06:55 Labs: Laboratory Last Values WBC 21.7 K/mm3 (4.5-11.0) H 04/29/17 06:55 RBC 4.85 M/mm3 (3.65-5.03) 04/29/17 06:55 Hgb 13.4 gm/dl (11.8-15.2) 04/29/17 06:55 Hct 41.2 % (35.5-45.6) 04/29/17 06:55 MCV 85 fl (84-94) 04/29/17 06:55 MCH 28 pg (28-32) 04/29/17 06:55 MCHC 33 % (32-34) 04/29/17 06:55 RDW 14.6 % (13.2-15.2) 04/29/17 06:55 Plt Count 210 K/mm3 (140-440) 04/29/17 06:55 Add Manual Diff Complete 04/29/17 06:55 Total Counted 100 04/29/17 06:55 Seg Neutrophils % Panel Monitor 04/29/17 06:55 Seg Neuts % (Manual) 99.0 % (40.0-70.0) H 04/29/17 06:55 Band Neutrophils % 0 % 04/29/17 06:55 Lymphocytes % (Manual) 0 % (13.4-35.0) L 04/29/17 06:55 Reactive Lymphs % (Man) 0 % 04/29/17 06:55 Monocytes % (Manual) 1.0 % (0.0-7.3) 04/29/17 06:55 Eosinophils % (Manual) 0 % (0.0-4.3) 04/29/17 06:55 Basophils % (Manual) 0 % (0.0-1.8) 04/29/17 06:55 Metamyelocytes % 0 % 04/29/17 06:55 Myelocytes % 0 % 04/29/17 06:55 Promyelocytes % 0 % 04/29/17 06:55 Blast Cells % 0 % 04/29/17 06:55 Nucleated RBC % Not Reportable 04/29/17 06:55 Seg Neutrophils # Man 21.5 K/mm3 (1.8-7.7) H 04/29/17 06:55 Band Neutrophils # 0.0 K/mm3 04/29/17 06:55 Lymphocytes # (Manual) 0.0 K/mm3 (1.2-5.4) L 04/29/17 06:55 Abs React Lymphs (Man) 0.0 K/mm3 04/29/17 06:55 Monocytes # (Manual) 0.2 K/mm3 (0.0-0.8) 04/29/17 06:55 Eosinophils # (Manual) 0.0 K/mm3 (0.0-0.4) 04/29/17 06:55 Basophils # (Manual) 0.0 K/mm3 (0.0-0.1) 04/29/17 06:55 Metamyelocytes # 0.0 K/mm3 04/29/17 06:55 Myelocytes # 0.0 K/mm3 04/29/17 06:55 Promyelocytes # 0.0 K/mm3 04/29/17 06:55 Blast Cells # 0.0 K/mm3 04/29/17 06:55 WBC Morphology Not Reportable 04/29/17 06:55 Hypersegmented Neuts Not Reportable 04/29/17 06:55 Hyposegmented Neuts Not Reportable 04/29/17 06:55 Hypogranular Neuts Not Reportable 04/29/17 06:55 Smudge Cells Not Reportable 04/29/17 06:55 Toxic Granulation Not Reportable 04/29/17 06:55 Toxic Vacuolation Not Reportable 04/29/17 06:55 Dohle Bodies Not Reportable 04/29/17 06:55 Pelger-Huet Anomaly Not Reportable 04/29/17 06:55 Lizette Rods Not Reportable 04/29/17 06:55 Platelet Estimate Appears normal 04/29/17 06:55 Clumped Platelets Not Reportable 04/29/17 06:55 Plt Clumps, EDTA Not Reportable 04/29/17 06:55 Large Platelets Not Reportable 04/29/17 06:55 Giant Platelets Not Reportable 04/29/17 06:55 Platelet Satelliting Not Reportable 04/29/17 06:55 Plt Morphology Comment Not Reportable 04/29/17 06:55 RBC Morphology Not Reportable 04/29/17 06:55 Dimorphic RBCs Not Reportable 04/29/17 06:55 Polychromasia Rare 04/29/17 06:55 Hypochromasia Not Reportable 04/29/17 06:55 Poikilocytosis Not Reportable 04/29/17 06:55 Anisocytosis 1+ 04/29/17 06:55 Microcytosis Not Reportable 04/29/17 06:55 Macrocytosis Not Reportable 04/29/17 06:55 Spherocytes Not Reportable 04/29/17 06:55 Pappenheimer Bodies Not Reportable 04/29/17 06:55 Sickle Cells Not Reportable 04/29/17 06:55 Target Cells Not Reportable 04/29/17 06:55 Tear Drop Cells Not Reportable 04/29/17 06:55 Ovalocytes Not Reportable 04/29/17 06:55 Helmet Cells Not Reportable 04/29/17 06:55 [place] Bodies Not Reportable 04/29/17 06:55 [place] Rings Not Reportable 04/29/17 06:55 [place] Cells Few 04/29/17 06:55 Bite Cells Not Reportable 04/29/17 06:55 Crenated Cell Not Reportable 04/29/17 06:55 Elliptocytes Not Reportable 04/29/17 06:55 Acanthocytes (Spur) Not Reportable 04/29/17 06:55 Rouleaux Not Reportable 04/29/17 06:55 Hemoglobin C Crystals Not Reportable 04/29/17 06:55 Schistocytes Not Reportable 04/29/17 06:55 Malaria parasites Not Reportable 04/29/17 06:55 Noel Bodies Not Reportable 04/29/17 06:55 Hem Pathologist Commnt No 04/29/17 06:55 PT 51.5 Sec. (12.2-14.9) H 04/29/17 06:55 INR 5.23 (0.87-1.13) H* 04/29/17 06:55 APTT 52.6 Sec. (24.2-36.6) H 04/28/17 21:55 Sodium 143 mmol/L (137-145) 04/29/17 06:55 Potassium 4.6 mmol/L (3.6-5.0) 04/29/17 06:55 Chloride 106.5 mmol/L (98-107) 04/29/17 06:55 Carbon Dioxide 11 mmol/L (22-30) L 04/29/17 06:55 Anion Gap 30 mmol/L 04/29/17 06:55 BUN 55 mg/dL (9-20) H 04/29/17 06:55 Creatinine 7.6 mg/dL (0.8-1.5) H 04/29/17 06:55 Estimated GFR 11 ml/min 04/29/17 06:55 BUN/Creatinine Ratio 7 % 04/29/17 06:55 Glucose 43 mg/dL (75-100) L 04/29/17 06:55 Calcium 6.3 mg/dL (8.4-10.2) L D 04/29/17 06:55 Total Bilirubin 1.60 mg/dL (0.1-1.2) H 04/28/17 19:13 AST 2868 units/L (5-40) H 04/28/17 19:13 ALT 719 units/L (7-56) H 04/28/17 19:13 Alkaline Phosphatase 108 units/L (35-129) 04/28/17 19:13 Ammonia 90.0 umol/L (25-60) H 04/29/17 06:55 Total Creatine Kinase 180196 units/L (55-170) H 04/28/17 19:13 Troponin T 0.577 ng/mL (0.00-0.029) H* 04/28/17 19:13 Total Protein 6.6 g/dL (6.3-8.2) 04/28/17 19:13 Albumin 3.7 g/dL (3.9-5) L 04/28/17 19:13 Albumin/Globulin Ratio 1.3 % 04/28/17 19:13 Urine Opiates Screen Presumptive negative 04/29/17 02:43 Urine Methadone Screen Presumptive negative 04/29/17 02:43 Ur Barbiturates Screen Presumptive negative 04/29/17 02:43 Ur Phencyclidine Scrn Presumptive negative 04/29/17 02:43 Ur Amphetamines Screen Presumptive negative 04/29/17 02:43 U Benzodiazepines Scrn Presumptive positive 04/29/17 02:43 Urine Cocaine Screen Presumptive positive 04/29/17 02:43 U Marijuana (THC) Screen Presumptive negative 04/29/17 02:43 Drugs of Abuse Note Disclamer 04/29/17 02:43 Hepatitis A IgM Ab Non-reactive (NonReactive) 04/28/17 19:13 Hep Bs Antigen Non-reactive (Negative) 04/28/17 19:13 Hep B Core IgM Ab Non-reactive (NonReactive) 04/28/17 19:13 Hepatitis C Antibody Non-reactive (NonReactive) 04/28/17 19:13
[2017-04-29] MEDS ORDERED: NACL 0.9% 1000 ML 1,000 ML IV SCH (10:00)
[2017-04-29] MEDS: SODIUM BICARBONATE 150 MEQ in D5W 1,000 ML IV SCH (11:11)
[2017-04-29] MEDS: VITAMIN K (ADULT ONLY) SUB-Q SCH (11:11)
[2017-04-29] MEDS: SODIUM BICARBONATE PO SCH ×3 (11:12→19:53)
--- NOTE | 2017-04-29 11:51 | Progress Note ---
Assessment and Plan 26yo AAM: 1. Mildly elevated trop * nl ecg * non-specific finding given below * trending down 2. Rhabdomolysis * antonia * metaboloic acidemia 3. Hepatic failure 4. elevated inr 5. encephalopthy 6. polysubstance abuse pt is critically ill agree w gi/nephrology/critical care consults ecg is normal check tte no obvious cp Minimally elevated trop is likely not due to a primary cardiac event d/c heparin for now cont asa needs psych eval Subjective Date of service: 04/29/17 Interval history: not cooperating, confused appears comfortable Objective Vital Signs Temp Pulse Resp BP BP Pulse Ox 04/29/17 07:38 98.2 F 104 H 18 141/63 95 04/29/17 05:15 135/66 96 04/29/17 05:00 150/80 04/29/17 04:45 111 H 35 H 129/60 96 04/29/17 04:30 111 H 31 H 148/51 95 04/29/17 04:15 103 H 22 148/51 97 04/29/17 04:00 101 H 31 H 138/57 97 04/29/17 03:45 102 H 21 138/79 99 04/29/17 03:30 28 H 142/89 04/29/17 03:15 25 H 131/54 04/29/17 03:00 108 H 31 H 132/74 04/29/17 02:45 103 H 29 H 137/70 04/29/17 02:34 98.8 F 106 H 135/67 100 04/29/17 02:33 159/87 04/29/17 02:30 102 H 28 H 152/84 04/29/17 02:16 159/87 100 04/29/17 02:08 159/87 98 04/29/17 01:45 159/87 98 04/29/17 01:30 148/69 95 04/29/17 01:15 135/69 93 04/29/17 01:00 134/88 97 04/29/17 00:55 98.8 F 106 H 27 H 135/67 98 04/29/17 00:45 106 H 27 H 135/67 98 04/29/17 00:30 106 H 28 H 126/64 96 04/29/17 00:15 105 H 16 128/63 98 04/28/17 23:45 98 H 29 H 128/63 94 04/28/17 23:30 102 H 28 H 145/86 98 04/28/17 23:18 110 H 34 H 152/89 96 04/28/17 23:15 97 H 33 H 152/89 96 04/28/17 23:00 94 H 29 H 139/62 98 04/28/17 22:45 96 H 32 H 144/67 98 04/28/17 22:30 102 H 27 H 133/85 99 04/28/17 22:16 104 H 29 H 134/83 98 04/28/17 22:00 103 H 34 H 153/73 98 04/28/17 21:50 23 99 04/28/17 21:46 112 H 36 H 132/71 96 04/28/17 21:30 107 H 31 H 134/79 99 04/28/17 21:16 105 H 30 H 126/63 100 04/28/17 21:00 106 H 26 H 127/68 100 04/28/17 20:45 97 H 27 H 152/76 100 04/28/17 20:30 103 H 28 H 159/81 100 04/28/17 20:20 91 H 23 167/83 04/28/17 17:50 98.8 F 94 H 18 157/92 99 04/28/17 17:46 164/78 100 04/28/17 17:30 162/74 99 04/28/17 17:27 162/74 98 - Labs and Meds Cardiac Enzymes 04/28/17 Range/Units 19:13 AST 2868 H (5-40) units/L Coagulation 04/28/17 04/29/17 Range/Units 21:55 06:55 PT 50.8 H 51.5 H (12.2-14.9) Sec. INR 5.15 H* 5.23 H* (0.87-1.13) APTT 52.6 H (24.2-36.6) Sec. CBC 04/28/17 04/28/17 04/29/17 Range/Units 18:25 21:55 06:55 WBC 20.3 H 21.7 H (4.5-11.0) K/mm3 RBC 5.29 H 4.85 (3.65-5.03) M/mm3 Hgb 14.9 14.3 13.4 (11.8-15.2) gm/dl Hct 47.0 H D 44.1 41.2 (35.5-45.6) % Plt Count 175 167 210 (140-440) K/mm3 Comprehensive Metabolic Panel 04/28/17 04/29/17 Range/Units 19:13 06:55 Sodium 139 143 (137-145) mmol/L Potassium 4.7 4.6 (3.6-5.0) mmol/L Chloride 103.6 106.5 (98-107) mmol/L Carbon Dioxide 11 L 11 L (22-30) mmol/L BUN 45 H 55 H (9-20) mg/dL Creatinine 5.8 H 7.6 H (0.8-1.5) mg/dL Glucose 67 L 43 L (75-100) mg/dL Calcium 7.5 L 6.3 L D (8.4-10.2) mg/dL AST 2868 H (5-40) units/L ALT 719 H (7-56) units/L Alkaline Phosphatase 108 (35-129) units/L Total Protein 6.6 (6.3-8.2) g/dL Albumin 3.7 L (3.9-5) g/dL
[2017-04-29 13:37] LABS: Creatine Kinase MB 537.2 ng/mL (0.0-4.0)
[2017-04-29] MEDS: ASPIRIN PO SCH (16:21)
--- NOTE | 2017-04-29 17:10 | Consultation ---
History of Present Illness - Reason for Consult acute renal failure Requesting physician: ANGELI SWANSON - History of Present Illness This is a 26 y/o male with PMH of cocaine abuse who presented to [facility] yesterday with complaints of chest pain, body aches all over this body, and was admitted for rhabdomyolysis, acute renal failure, NSTEMI, and metabolic acidosis, but he left AMA. Patient returned to [facility] ED with worsening complaints of bodyaches and chest pain. Patient able to provide limited history, lethargic, but oriented to person, place, and time. No family at bedside. Patient denies history of kidney problems, NSAIDs or antibiotic use. Patient does report not eating much for the past 2 days, along with nausea, vomiting, and diarrhea for the past 2 days. We were consulted to evaluate this patient who has acute renal failure with rhabdomyolysis and nephrology consultation requested. Past History Past Medical History: No medical history Past Surgical History: No surgical history Social history: smoking (cigarettes and cocaine) Family history: no significant family history Medications and Allergies Allergies Allergy/AdvReac Type Severity Reaction Status Date / Time No Known Allergies Allergy Verified 04/28/17 17:50 Home Medications Medication Instructions Recorded Confirmed Last Taken Type No Known Home Medications [No 04/27/17 04/29/17 Unknown History Reported Home Medications] Active Meds: Active Medications Aspirin (Aspirin) 325 mg PO QDAY [facility] Last Admin: 04/29/17 16:21 Dose: Not Given Heparin Sodium/Sodium Chloride (Heparin/ 0.45% Nacl-25,000 Unit/500 Ml) 25,000 unit in 500 mls @ 20 mls/hr IV TITRATE EMERY; 1,000 UNITS/HR PRN Reason: Protocol Sodium Bicarbonate 150 meq/ (Dextrose) 1,150 mls @ 75 mls/hr IV DIRECT [facility] Last Admin: 04/29/17 11:11 Dose: 75 mls/hr Sodium Chloride (Nacl 0.9% 1000 Ml) 1,000 mls @ 250 mls/hr IV DIRECT [facility] Metoprolol Tartrate (Lopressor) 25 mg PO BID [facility] Last Admin: 04/29/17 11:10 Dose: 25 mg Pantoprazole Sodium (Protonix) 40 mg IV BID [facility] Phytonadione (Vitamin K (Adult Only)) 10 mg SUB-Q Q24H [facility] Stop: 05/01/17 10:01 Last Admin: 04/29/17 11:11 Dose: 10 mg Sodium Bicarbonate (Sodium Bicarbonate) 1,300 mg PO TID [facility] Last Admin: 04/29/17 16:22 Dose: Not Given Review of Systems Constitutional: fatigue, weakness, poor appetite, no fever, no chills Ears, nose, mouth and throat: no headache Cardiovascular: chest pain, no shortness of breath, no dyspnea on exertion Respiratory: no cough, no shortness of breath, no dyspnea on exertion Gastrointestinal: nausea, vomiting, diarrhea, no constipation, no hematemesis, no melena Genitourinary Male: no dysuria, no hematuria Musculoskeletal: muscle weakness, myalgias, no shooting arm pain, no shooting leg pain, no leg numbness/tingling Integumentary: no sores, no wounds Neurological: weakness, confusion, no numbness, no tingling Psychiatric: confusion Exam - Vital Signs Vital signs: Vital Signs BP Pulse Ox 162/74 98 04/28/17 17:27 04/28/17 17:27 - General Appearance General appearance: other (lethargic, arouses to verbal stimuli, oriented to person, place, and time, follows simple commands) EENT: ATNC Neck: Present: neck supple Respiratory: Clear to Ascultation Heart: regular, S1S2 Gastrointestinal: Present: normoactive bowel sounds, other (: Vela to gravity draining khadijah colored urine). Absent: tenderness Integumentary: warm and dry Neurologic: other (lethargic, arouses to verbal stimuli, oriented to person, place, and time, moves all 4 extremities) Musculoskeletal: Present: other (no edema to both lower extremities) Results - Lab Results 04/29/17 06:55 04/29/17 06:55 Most recent lab results Calcium 6.3 mg/dL (8.4-10.2) L D 04/29/17 06:55 Assessment and Plan Acute Toxic Metabolic Encephalopathy: -Urine drug screen (UDS) positive for cocaine -S/p CT Head without contrast showed no acute intracranial abnormality -As per primary team Elevated Troponin: Chest Pain: -Cardiology consulted, follow up recs Acute Renal Failure possibly secondary to prerenal/ATN, rhabdomyolysis, worsened in setting of vomiting, diarrhea, and decreased oral intake, r/o obstruction, baseline SCr unknown: -Renal function reviewed, SCr level increased to 7.6 today, yesterday's SCr level was 5.8 -No acute indication for 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, but may require HD during this hospitalization if no significant improvement and/or worsening renal function -Renally dose medications -CK level was 107,477 today -Continue D5W + 150 mEq sodium bicarbonate infusion at 75 ml/hr -Obtain renal ultrasound to r/o obstruction -Check ionized calcium, PTH, phosphorus -Obtain urine lytes -Obtain daily weight -Strict intake and output -Vela Catheter: Yes -Renal plan discussed with Dr Herrera -Continue supportive therapy Anion Gap Metabolic Acidosis: -Continue D5W + 150 mEq sodium bicarbonate infusion at 75 ml/hr -Started on sodium bicarbonate 650 mg orally three times a day -Monitor labs daily Fulminant Hepatic Failure: Elevated INR: -Elevated transaminases -Elevated INR of 5.23 today, s/p phytonadione dose on 04/28/17, ordered to receive 3 additional doses -Check daily INR -GI consulted, f/u recs -Hepatitis panel negative -As per GI and primary team Rhabdomyolysis, suspected non-traumatic: -CK level was 107,477 today -Monitor daily CK level -Continue D5W + 150 mEq sodium bicarbonate infusion at 75 ml/hr Polysubstance Abuse: -UDS positive for cocaine -Per primary team will provide conseling for cocaine, alcohol and tobacco -As per primary team
--- NOTE | 2017-04-29 19:54 | Gastroenterology Consultation ---
History of Present Illness - Reason for Consult Consult date: 04/29/17 Rhabdomyolysis Requesting physician: RICHARD PERES - History of Present Illness The patient is a 26 yo male with a hx of cocaine abuse who came to the ER for myalgias and was noted to be in rhabdo; he left AMA, and returned (positive both visits for cocaine) in worsening distress. He mainly complains of all over body aches, but also abdominal pain and N/V. He has no hx of liver disease , but is noted to have an elevated INR and AST (no jaundice yet). He drinks "some" but can't tell me how much; he has no asterixis or AMS on exam. He is oliguric with minimal output at present. His hepatitis serologies were negative , but HIV was not drawn. Past History Past Medical History: No medical history Past Surgical History: No surgical history Social history: smoking (cigarettes and cocaine), other (cocaine) Family history: no significant family history Medications and Allergies Allergies Allergy/AdvReac Type Severity Reaction Status Date / Time No Known Allergies Allergy Verified 04/28/17 17:50 Home Medications Medication Instructions Recorded Confirmed Last Taken Type No Known Home Medications [No 04/27/17 04/29/17 Unknown History Reported Home Medications] Active Meds: Active Medications Aspirin (Aspirin) 325 mg PO QDAY [facility] Last Admin: 04/29/17 16:21 Dose: Not Given Heparin Sodium/Sodium Chloride (Heparin/ 0.45% Nacl-25,000 Unit/500 Ml) 25,000 unit in 500 mls @ 20 mls/hr IV TITRATE [facility]; 1,000 UNITS/HR PRN Reason: Protocol Sodium Bicarbonate 150 meq/ (Dextrose) 1,150 mls @ 75 mls/hr IV DIRECT [facility] Last Admin: 04/29/17 11:11 Dose: 75 mls/hr Sodium Chloride (Nacl 0.9% 1000 Ml) 1,000 mls @ 250 mls/hr IV DIRECT [facility] Metoprolol Tartrate (Lopressor) 25 mg PO BID [facility] Last Admin: 04/29/17 11:10 Dose: 25 mg Pantoprazole Sodium (Protonix) 40 mg IV BID [facility] Phytonadione (Vitamin K (Adult Only)) 10 mg SUB-Q Q24H [facility] Stop: 05/01/17 10:01 Last Admin: 04/29/17 11:11 Dose: 10 mg Sodium Bicarbonate (Sodium Bicarbonate) 1,300 mg PO TID [facility] Last Admin: 04/29/17 16:22 Dose: Not Given I HAVE REVIEWED AND RECONCILED MEDICATIONS Review of Systems - Review of Systems All systems: negative (as noted in the HPI) Exam - Constitutional Vital Signs: Temp Pulse Resp BP Pulse Ox 98.2 F 111 H 18 141/63 95 04/29/17 07:38 04/29/17 14:00 04/29/17 07:38 04/29/17 07:38 04/29/17 07:38 General appearance: mild distress, disheveled - EENT Eyes: PERRL, EOM intact ENT: hearing intact, no thrush - Neck Neck: supple, normal ROM - Respiratory Respiratory effort: normal Respiratory: bilateral: CTA - Cardiovascular Heart Rate: 110 Rhythm: regular Heart Sounds: Present: S1 & S2 Extremities: no ischemia, No edema - Gastrointestinal General gastrointestinal: Present: soft, tender (diffuse and mild), non- distended - Integumentary Integumentary: Present: clear (tattoos), warm, dry - Neurologic Neurological: alert and oriented x3, asterixis (not present) - Labs CBC & Chem 7: 04/29/17 06:55 04/29/17 06:55 Lab Results: Laboratory Results - last 24 hr 04/28/17 04/28/17 04/28/17 18:25 19:13 19:13 WBC 20.3 H RBC 5.29 H Hgb 14.9 Hct 47.0 H D MCV 89 MCH 28 MCHC 32 RDW 14.9 Plt Count 175 Add Manual Diff Complete Total Counted 100 Seg Neutrophils % Insurance Billing Clerk Seg Neuts % (Manual) 91.0 H Band Neutrophils % 0 Lymphocytes % (Manual) 6.0 L Reactive Lymphs % (Man) 0 Monocytes % (Manual) 3.0 Eosinophils % (Manual) 0 Basophils % (Manual) 0 Metamyelocytes % 0 Myelocytes % 0 Promyelocytes % 0 Blast Cells % 0 Nucleated RBC % Seg Neutrophils # Man 18.5 H Band Neutrophils # 0.0 Lymphocytes # (Manual) 1.2 Abs React Lymphs (Man) 0.0 Monocytes # (Manual) 0.6 Eosinophils # (Manual) 0.0 Basophils # (Manual) 0.0 Metamyelocytes # 0.0 Myelocytes # 0.0 Promyelocytes # 0.0 Blast Cells # 0.0 WBC Morphology Hypersegmented Neuts Hyposegmented Neuts Hypogranular Neuts Smudge Cells Toxic Granulation Toxic Vacuolation Dohle Bodies Pelger-Huet Anomaly Lizette Rods Platelet Estimate Appears normal Clumped Platelets Plt Clumps, EDTA Large Platelets Giant Platelets Platelet Satelliting Plt Morphology Comment RBC Morphology Dimorphic RBCs Polychromasia Hypochromasia Poikilocytosis Anisocytosis 1+ Microcytosis Macrocytosis Spherocytes Pappenheimer Bodies Sickle Cells Target Cells Tear Drop Cells Ovalocytes Helmet Cells [place] Bodies [place] Rings Nolan Cells Bite Cells Crenated Cell Elliptocytes Acanthocytes (Spur) Rouleaux Hemoglobin C Crystals Schistocytes Malaria parasites Noel Bodies Hem Pathologist Commnt No PT INR APTT Sodium Potassium Chloride Carbon Dioxide Anion Gap BUN Creatinine Estimated GFR BUN/Creatinine Ratio Glucose Calcium AST 2868 H ALT 719 H Ammonia Total Creatine Kinase 991147 H CK-MB (CK-2) CK-MB (CK-2) Rel Index Troponin T 0.577 H* Urine Opiates Screen Urine Methadone Screen Acetaminophen Ur Barbiturates Screen Ur Phencyclidine Scrn Ur Amphetamines Screen U Benzodiazepines Scrn Urine Cocaine Screen U Marijuana (THC) Screen Drugs of Abuse Note Hepatitis A IgM Ab Non-reactive Hep Bs Antigen Non-reactive Hep B Core IgM Ab Non-reactive Hepatitis C Antibody Non-reactive 04/28/17 04/28/17 04/29/17 21:55 21:55 02:43 WBC RBC Hgb 14.3 Hct 44.1 MCV MCH MCHC RDW Plt Count 167 Add Manual Diff Total Counted Seg Neutrophils % Seg Neuts % (Manual) Band Neutrophils % Lymphocytes % (Manual) Reactive Lymphs % (Man) Monocytes % (Manual) Eosinophils % (Manual) Basophils % (Manual) Metamyelocytes % Myelocytes % Promyelocytes % Blast Cells % Nucleated RBC % Seg Neutrophils # Man Band Neutrophils # Lymphocytes # (Manual) Abs React Lymphs (Man) Monocytes # (Manual) Eosinophils # (Manual) Basophils # (Manual) Metamyelocytes # Myelocytes # Promyelocytes # Blast Cells # WBC Morphology Hypersegmented Neuts Hyposegmented Neuts Hypogranular Neuts Smudge Cells Toxic Granulation Toxic Vacuolation Dohle Bodies Pelger-Huet Anomaly Lizette Rods Platelet Estimate Clumped Platelets Plt Clumps, EDTA Large Platelets Giant Platelets Platelet Satelliting Plt Morphology Comment RBC Morphology Dimorphic RBCs Polychromasia Hypochromasia Poikilocytosis Anisocytosis Microcytosis Macrocytosis Spherocytes Pappenheimer Bodies Sickle Cells Target Cells Tear Drop Cells Ovalocytes Helmet Cells [place] Bodies [place] Rings Nolan Cells Bite Cells Crenated Cell Elliptocytes Acanthocytes (Spur) Rouleaux Hemoglobin C Crystals Schistocytes Malaria parasites Noel Bodies Hem Pathologist Commnt PT 50.8 H INR 5.15 H* APTT 52.6 H Sodium Potassium Chloride Carbon Dioxide Anion Gap BUN Creatinine Estimated GFR BUN/Creatinine Ratio Glucose Calcium AST ALT Ammonia Total Creatine Kinase CK-MB (CK-2) CK-MB (CK-2) Rel Index Troponin T Urine Opiates Screen Presumptive negative Urine Methadone Screen Presumptive negative Acetaminophen Ur Barbiturates Screen Presumptive negative Ur Phencyclidine Scrn Presumptive negative Ur Amphetamines Screen Presumptive negative U Benzodiazepines Scrn Presumptive positive Urine Cocaine Screen Presumptive positive U Marijuana (THC) Screen Presumptive negative Drugs of Abuse Note Disclamer Hepatitis A IgM Ab Hep Bs Antigen Hep B Core IgM Ab Hepatitis C Antibody 04/29/17 04/29/17 04/29/17 06:55 06:55 06:55 WBC 21.7 H RBC 4.85 Hgb 13.4 Hct 41.2 MCV 85 MCH 28 MCHC 33 RDW 14.6 Plt Count 210 Add Manual Diff Complete Total Counted 100 Seg Neutrophils % Insurance Billing Clerk Seg Neuts % (Manual) 99.0 H Band Neutrophils % 0 Lymphocytes % (Manual) 0 L Reactive Lymphs % (Man) 0 Monocytes % (Manual) 1.0 Eosinophils % (Manual) 0 Basophils % (Manual) 0 Metamyelocytes % 0 Myelocytes % 0 Promyelocytes % 0 Blast Cells % 0 Nucleated RBC % Not Reportable Seg Neutrophils # Man 21.5 H Band Neutrophils # 0.0 Lymphocytes # (Manual) 0.0 L Abs React Lymphs (Man) 0.0 Monocytes # (Manual) 0.2 Eosinophils # (Manual) 0.0 Basophils # (Manual) 0.0 Metamyelocytes # 0.0 Myelocytes # 0.0 Promyelocytes # 0.0 Blast Cells # 0.0 WBC Morphology Not Reportable Hypersegmented Neuts Not Reportable Hyposegmented Neuts Not Reportable Hypogranular Neuts Not Reportable Smudge Cells Not Reportable Toxic Granulation Not Reportable Toxic Vacuolation Not Reportable Dohle Bodies Not Reportable Pelger-Huet Anomaly Not Reportable Lizette Rods Not Reportable Platelet Estimate Appears normal Clumped Platelets Not Reportable Plt Clumps, EDTA Not Reportable Large Platelets Not Reportable Giant Platelets Not Reportable Platelet Satelliting Not Reportable Plt Morphology Comment Not Reportable RBC Morphology Not Reportable Dimorphic RBCs Not Reportable Polychromasia Rare Hypochromasia Not Reportable Poikilocytosis Not Reportable Anisocytosis 1+ Microcytosis Not Reportable Macrocytosis Not Reportable Spherocytes Not Reportable Pappenheimer Bodies Not Reportable Sickle Cells Not Reportable Target Cells Not Reportable Tear Drop Cells Not Reportable Ovalocytes Not Reportable Helmet Cells Not Reportable [place] Bodies Not Reportable [place] Rings Not Reportable [place] Cells Few Bite Cells Not Reportable Crenated Cell Not Reportable Elliptocytes Not Reportable Acanthocytes (Spur) Not Reportable Rouleaux Not Reportable Hemoglobin C Crystals Not Reportable Schistocytes Not Reportable Malaria parasites Not Reportable Noel Bodies Not Reportable Hem Pathologist Commnt No PT 51.5 H INR 5.23 H* APTT Sodium 143 Potassium 4.6 Chloride 106.5 Carbon Dioxide 11 L Anion Gap 30 BUN 55 H Creatinine 7.6 H Estimated GFR 11 BUN/Creatinine Ratio 7 Glucose 43 L Calcium 6.3 L D AST ALT Ammonia Total Creatine Kinase CK-MB (CK-2) CK-MB (CK-2) Rel Index Troponin T Urine Opiates Screen Urine Methadone Screen Acetaminophen Ur Barbiturates Screen Ur Phencyclidine Scrn Ur Amphetamines Screen U Benzodiazepines Scrn Urine Cocaine Screen U Marijuana (THC) Screen Drugs of Abuse Note Hepatitis A IgM Ab Hep Bs Antigen Hep B Core IgM Ab Hepatitis C Antibody 04/29/17 04/29/17 04/29/17 06:55 10:38 10:38 WBC RBC Hgb Hct MCV MCH MCHC RDW Plt Count Add Manual Diff Total Counted Seg Neutrophils % Seg Neuts % (Manual) Band Neutrophils % Lymphocytes % (Manual) Reactive Lymphs % (Man) Monocytes % (Manual) Eosinophils % (Manual) Basophils % (Manual) Metamyelocytes % Myelocytes % Promyelocytes % Blast Cells % Nucleated RBC % Seg Neutrophils # Man Band Neutrophils # Lymphocytes # (Manual) Abs React Lymphs (Man) Monocytes # (Manual) Eosinophils # (Manual) Basophils # (Manual) Metamyelocytes # Myelocytes # Promyelocytes # Blast Cells # WBC Morphology Hypersegmented Neuts Hyposegmented Neuts Hypogranular Neuts Smudge Cells Toxic Granulation Toxic Vacuolation Dohle Bodies Pelger-Huet Anomaly Lizette Rods Platelet Estimate Clumped Platelets Plt Clumps, EDTA Large Platelets Giant Platelets Platelet Satelliting Plt Morphology Comment RBC Morphology Dimorphic RBCs Polychromasia Hypochromasia Poikilocytosis Anisocytosis Microcytosis Macrocytosis Spherocytes Pappenheimer Bodies Sickle Cells Target Cells Tear Drop Cells Ovalocytes Helmet Cells [place] Bodies [place] Rings Nolan Cells Bite Cells Crenated Cell Elliptocytes Acanthocytes (Spur) Rouleaux Hemoglobin C Crystals Schistocytes Malaria parasites Noel Bodies Hem Pathologist Commnt PT INR APTT Sodium Potassium Chloride Carbon Dioxide Anion Gap BUN Creatinine Estimated GFR BUN/Creatinine Ratio Glucose Calcium AST ALT Ammonia 90.0 H Total Creatine Kinase 746528 H CK-MB (CK-2) 537.2 H CK-MB (CK-2) Rel Index 0.4 Troponin T 0.396 H* D Urine Opiates Screen Urine Methadone Screen Acetaminophen < 15.0 Ur Barbiturates Screen Ur Phencyclidine Scrn Ur Amphetamines Screen U Benzodiazepines Scrn Urine Cocaine Screen U Marijuana (THC) Screen Drugs of Abuse Note Hepatitis A IgM Ab Hep Bs Antigen Hep B Core IgM Ab Hepatitis C Antibody Assessment and Plan - Patient Problems (1) Abnormal liver enzymes Current Visit: Yes Status: Acute Plan to address problem: - Elevated AST mostly from the muscle not the liver; alk phos, bilirubin and ALT only mildly elevated. - Elevated INR is somewhat from the liver, but also due (I think) to malnutrition, and impending multiorgan failure; needs FFP if acute hemorrhage but otherwise would give supplemental Vit K. - Will check abdominal US. - Would recommend an HIV test. - Elevated ammonia is mild and likely from ARF; he has no asterixis and is lucid /oriented though agitates. - Mortality risk would be high in this case, and would consider transfer to the ICU as renal failure worsens, though vitals are stable.
--- NOTE | 2017-04-29 20:07 | Event Note ---
Date: 04/29/17 patient transferred to critical care after talking with Dr. BOLES. Patient is an acute fulminant hepatic failure and severe rhabdomyolysis. Prognosis is bad. Patient to be transferred to intensive care unit for closer watch and management. Severe rhabdomyolysis Acute hepatic failure Prognosis guarded.
[2017-04-29] MEDS ORDERED: D5W 1,000 ML IV SCH (21:00)
[2017-04-29] MEDS: PROTONIX IV SCH (22:55)
[2017-04-30] MEDS ORDERED: ATIVAN IV PRN ×2 (02:54→14:55)
[2017-04-30] MEDS ORDERED: HALDOL IV PRN (02:54)
[2017-04-30] MEDS ORDERED: LIBRIUM PO PRN (02:54)
[2017-04-30] MEDS: HEPARIN/ 0.45% NACL-25,000 UNIT/500 ML 25,000 UNIT/500 ML BAG IV SCH (06:22)
[2017-04-30] MEDS: ATIVAN IV PRN ×4 (06:46→14:38)
[2017-04-30] MEDS: ZOFRAN IV PRN ×3 (06:46→22:31)
[2017-04-30] MEDS: SODIUM BICARBONATE PO SCH (08:37)
[2017-04-30 09:05] LABS: Hemoglobin 12.4 gm/dl (11.8-15.2); Mean Corpuscular HGB Conc 33 % (32-34); Mean Corpuscular Hemoglobin 27 pg (28-32); Mean Corpuscular Volume 84 fl (84-94); Platelet Count 153 K/mm3 (140-440); Red Blood Count 4.53 M/mm3 (3.65-5.03); Red Cell Distribution Width 14.7 % (13.2-15.2)
[2017-04-30 09:14] LABS: Albumin 2.9 g/dL (3.9-5); Bilirubin,Direct 2.2 mg/dL (0-0.2); Calcium 6.1 mg/dL (8.4-10.2)
[2017-04-30 09:16] LABS: INR 3.95 (0.87-1.13)
--- NOTE | 2017-04-30 09:16 | Progress Note ---
Assessment and Plan Acute Toxic Metabolic Encephalopathy: -Urine drug screen (UDS) positive for cocaine -S/p CT Head without contrast showed no acute intracranial abnormality -As per primary team Elevated Troponin: Chest Pain: -Cardiology consulted, follow up recs - most likely due to cocaine abuse and renal failure Acute Renal Failure possibly secondary to prerenal/ATN, rhabdomyolysis, worsened in setting of vomiting, diarrhea, and decreased oral intake, r/o obstruction, baseline SCr unknown: -Cr and HUn cont to rise, UOP is decreasing, will request vascular surgery consult and initiate HD for clearance -Can stop bicarb gtt once HD is started -Obtain renal ultrasound to r/o obstruction -Obtain daily weight -Strict intake and output -Vela Catheter: Yes Anion Gap Metabolic Acidosis: -HD as above -Monitor labs daily Fulminant Hepatic Failure: Elevated INR: -may need to correct INR prior to vascath, awaiting vascular surgery eval -Hepatitis panel negative -As per GI and primary team Rhabdomyolysis, suspected non-traumatic: -Monitor daily CK level Polysubstance Abuse: -UDS positive for cocaine -Per primary team will provide conseling for cocaine, alcohol and tobacco -As per primary team Subjective Date of service: 04/30/17 Principal diagnosis: severe renal failure Interval history: awake but confused Objective - Vital Signs Vital signs: Vital Signs - 12hr 04/30/17 04/30/17 04/30/17 00:55 05:12 07:06 Temperature 98.1 F 99.0 F Pulse Rate 100 H Respiratory 20 20 Rate Blood Pressure 157/81 172/91 O2 Sat by Pulse 96 95 Oximetry 04/30/17 04/30/17 04/30/17 07:10 07:20 07:30 Temperature Pulse Rate 97 H 98 H 98 H Respiratory 25 H 30 H 22 Rate Blood Pressure 178/93 178/93 178/93 O2 Sat by Pulse 98 99 99 Oximetry 04/30/17 04/30/17 04/30/17 07:40 07:50 08:00 Temperature Pulse Rate 93 H 96 H 110 H Respiratory 22 24 27 H Rate Blood Pressure 169/94 169/94 169/94 O2 Sat by Pulse 100 98 98 Oximetry 04/30/17 04/30/17 04/30/17 08:10 08:23 08:25 Temperature 98.3 F Pulse Rate 107 H 96 H Respiratory 38 H 25 H Rate Blood Pressure 180/97 178/93 O2 Sat by Pulse 97 97 Oximetry 04/30/17 04/30/17 08:30 08:41 Temperature Pulse Rate 94 H 95 H Respiratory 26 H 26 H Rate Blood Pressure 162/87 180/97 O2 Sat by Pulse 98 97 Oximetry - General Appearance General appearance: well-developed, well-nourished EENT: ATNC, PERRL Neck: no JVD, no carotid bruit Respiratory: Present: Clear to Ascultation Cardiology: regular, S1S2 Gastrointestinal: normoactive bowel sounds, no tenderness, no distended Integumentary: no rash, warm and dry Neurologic: other (does not follow commands) Musculoskeletal: other (no edema in BLE) Psychiatric: other (does not answer questions) - Lab 04/30/17 08:19 04/30/17 08:19 Most recent lab results Calcium 6.1 mg/dL (8.4-10.2) L 04/30/17 08:19
--- NOTE | 2017-04-30 09:32 | Gastroenterology Progress Note ---
Assessment and Plan - Patient Problems (1) Abnormal liver enzymes Current Visit: Yes Status: Acute Plan to address problem: Acute liver injury. Likely ischemic. T. bili now elevated. Liver failure is present which may progress. High risk. (2) Rhabdomyolysis Current Visit: Yes Status: Acute (3) CAIO (acute kidney injury) Current Visit: No Status: Acute (4) Cocaine abuse with cocaine-induced psychotic disorder Current Visit: No Status: Acute Qualifiers: Complication of substance-induced condition: with delusions Qualified Code( s): F14.150 - Cocaine abuse with cocaine-induced psychotic disorder with delusions (5) Encephalopathy acute Current Visit: No Status: Acute Plan to address problem: May have PSE. (6) Abdominal tenderness Current Visit: Yes Status: Acute Plan to address problem: May have ischemic gut in this setting as well. Subjective Date of service: 04/30/17 Principal diagnosis: Elevated LFTs, abdominal pain Interval history: Poorly responsive. Moaning. Objective - Constitutional Vitals: Temp Pulse Resp BP Pulse Ox 98.3 F 95 H 26 H 180/97 97 04/30/17 08:25 04/30/17 08:41 04/30/17 08:41 04/30/17 08:41 04/30/17 08:41 General appearance: mild distress - Neck Neck: supple, normal ROM - Respiratory Respiratory effort: normal Respiratory: bilateral: CTA - Cardiovascular Rhythm: regular - Gastrointestinal General gastrointestinal: Present: soft, tender (Diffusely tender.), non- distended, normal bowel sounds - Genitourinary Male Genitourinary: deferred - Neurologic Neurological: disoriented - Labs CBC & Chem 7: 04/30/17 08:19 04/30/17 08:19 Labs: Laboratory Results - last 24 hr 04/29/17 04/29/17 04/29/17 10:38 10:38 17:32 WBC RBC Hgb Hct MCV MCH MCHC RDW Plt Count PT INR Sodium Potassium Chloride Carbon Dioxide Anion Gap BUN Creatinine Estimated GFR BUN/Creatinine Ratio Glucose POC Glucose 55 L Calcium Total Bilirubin Direct Bilirubin Indirect Bilirubin Alkaline Phosphatase Total Creatine Kinase 027524 H CK-MB (CK-2) 537.2 H CK-MB (CK-2) Rel Index 0.4 Troponin T 0.396 H* D Total Protein Albumin Albumin/Globulin Ratio Acetaminophen < 15.0 HIV 1&2 Antibody Rapid HIV P24 Antigen 04/30/17 04/30/17 04/30/17 08:02 08:19 08:19 WBC 12.8 H RBC 4.53 Hgb 12.4 Hct 38.0 MCV 84 MCH 27 L MCHC 33 RDW 14.7 Plt Count 153 PT 41.1 H INR 3.95 H Sodium Potassium Chloride Carbon Dioxide Anion Gap BUN Creatinine Estimated GFR BUN/Creatinine Ratio Glucose POC Glucose 79 Calcium Total Bilirubin Direct Bilirubin Indirect Bilirubin Alkaline Phosphatase Total Creatine Kinase CK-MB (CK-2) CK-MB (CK-2) Rel Index Troponin T Total Protein Albumin Albumin/Globulin Ratio Acetaminophen HIV 1&2 Antibody Rapid HIV P24 Antigen 04/30/17 04/30/17 08:19 08:19 WBC RBC Hgb Hct MCV MCH MCHC RDW Plt Count PT INR Sodium 141 Potassium 5.0 Chloride 99.4 Carbon Dioxide 14 L Anion Gap 33 BUN 84 H Creatinine 12.1 H D Estimated GFR 6 BUN/Creatinine Ratio 7 Glucose 97 POC Glucose Calcium 6.1 L Total Bilirubin 3.10 H Direct Bilirubin 2.2 H Indirect Bilirubin 0.9 Alkaline Phosphatase 138 H Total Creatine Kinase CK-MB (CK-2) CK-MB (CK-2) Rel Index Troponin T Total Protein 5.2 L D Albumin 2.9 L Albumin/Globulin Ratio 1.3 Acetaminophen HIV 1&2 Antibody Rapid Non react HIV P24 Antigen Non react
[2017-04-30 10:09] LABS: Anisocytosis 1+; Band Neutrophils # (Manual) 0.8 K/mm3; Total Cells Counted 100
[2017-04-30 10:11] LABS: Poikilocytosis Few
--- NOTE | 2017-04-30 10:20 | Consultation ---
History of Present Illness - Reason for Consult Consult date: 04/30/17 Reason for consult: Mental Health Evaluation Requesting physician: RICHARD PERES - Chief Complaint Chief complaint: "I don't feel well" - History of Present Psychiatric Illness The patient is a 26-year-old male presenting with a chief complaint of body aches. This patient signed out AMA and returned to hospital a few hours later per the record. Psychiatry was consulted to see the patient. Today patient is lethargic and mumbling most of his answers when questioned during the assessment. He stated that he was in to much pain. When asked about his drinking (etoh) habits, he stated, " I drink sometimes." The patient is a poor historian at this time. Medications and Allergies Allergies Allergy/AdvReac Type Severity Reaction Status Date / Time No Known Allergies Allergy Verified 04/28/17 17:50 Home Medications Medication Instructions Recorded Confirmed Last Taken Type No Known Home Medications [No 04/27/17 04/29/17 Unknown History Reported Home Medications] Active Meds: Active Medications Aspirin (Aspirin) 325 mg PO QDAY [facility] Last Admin: 04/29/17 16:21 Dose: Not Given Haloperidol Lactate (Haldol) 10 mg IV Q1H PRN PRN Reason: CIWA-Ar >15 and unrespon BZD's Hydralazine HCl (Apresoline) 10 mg IV Q4HR PRN PRN Reason: BP >160/100 Sodium Bicarbonate 150 meq/ (Dextrose) 1,150 mls @ 75 mls/hr IV DIRECT [facility] Last Admin: 04/29/17 11:11 Dose: 75 mls/hr Lorazepam (Ativan) 2 mg IV Q1HR PRN PRN Reason: CIWA-Ar 8-15 Last Admin: 04/30/17 06:46 Dose: 2 mg Lorazepam (Ativan) 4 mg IV Q1HR PRN PRN Reason: CIWA-Ar 16-25 Last Admin: 04/30/17 08:13 Dose: 4 mg Lorazepam (Ativan) 4 mg IV Q15MIN PRN PRN Reason: CIWA-Ar >25 Metoprolol Tartrate (Lopressor) 25 mg PO BID [facility] Last Admin: 04/29/17 22:56 Dose: Not Given Ondansetron HCl (Zofran) 4 mg IV Q4H PRN PRN Reason: Nausea And Vomiting Last Admin: 04/30/17 08:13 Dose: 4 mg Pantoprazole Sodium (Protonix) 40 mg IV BID [facility] Last Admin: 04/29/17 22:55 Dose: 40 mg Phytonadione (Vitamin K (Adult Only)) 10 mg SUB-Q Q24H [facility] Stop: 05/01/17 10:01 Last Admin: 04/29/17 11:11 Dose: 10 mg Past psychiatric history - Past Medical History Past Medical History: other (Unable to obtain) Past Surgical History: Other (Unable to obtain) - past Psychiatric treatment and history psychiatric treatment history: Unable to obtain a psy hx and a fam psy hx. - Social History Social history: other (Unable to obtain ) Mental Status Exam - Vital signs Last Vital Signs Temp 98.3 F 04/30/17 08:25 Pulse 95 H 04/30/17 08:41 Resp 26 H 04/30/17 08:41 BP 180/97 04/30/17 08:41 Pulse Ox 97 04/30/17 08:41 - Exam Narrative exam: Unable to complete the MSE due to the patient's medical condition. Results Result Diagrams: 05/02/17 05:25 05/02/17 05:25 Abnormal lab results 04/29/17 04/29/17 04/30/17 Range/Units 10:38 17:32 08:19 WBC 12.8 H (4.5-11.0) K/mm3 MCH 27 L (28-32) pg Seg Neuts % (Manual) 83.0 H (40.0-70.0) % Lymphocytes % (Manual) 9.0 L (13.4-35.0) % Seg Neutrophils # Man 10.6 H (1.8-7.7) K/mm3 PT (12.2-14.9) Sec. INR (0.87-1.13) Carbon Dioxide (22-30) mmol/L BUN (9-20) mg/dL Creatinine (0.8-1.5) mg/dL POC Glucose 55 L (70-105) Calcium (8.4-10.2) mg/dL Total Bilirubin (0.1-1.2) mg/dL Direct Bilirubin (0-0.2) mg/dL AST (5-40) units/L ALT (7-56) units/L Alkaline Phosphatase (35-129) units/L Total Creatine Kinase 753141 H (55-170) units/L CK-MB (CK-2) 537.2 H (0.0-4.0) ng/mL Troponin T 0.396 H* D (0.00-0.029) ng/mL Total Protein (6.3-8.2) g/dL Albumin (3.9-5) g/dL 04/30/17 04/30/17 Range/Units 08:19 08:19 WBC (4.5-11.0) K/mm3 MCH (28-32) pg Seg Neuts % (Manual) (40.0-70.0) % Lymphocytes % (Manual) (13.4-35.0) % Seg Neutrophils # Man (1.8-7.7) K/mm3 PT 41.1 H (12.2-14.9) Sec. INR 3.95 H (0.87-1.13) Carbon Dioxide 14 L (22-30) mmol/L BUN 84 H (9-20) mg/dL Creatinine 12.1 H D (0.8-1.5) mg/dL POC Glucose (70-105) Calcium 6.1 L (8.4-10.2) mg/dL Total Bilirubin 3.10 H (0.1-1.2) mg/dL Direct Bilirubin 2.2 H (0-0.2) mg/dL AST 4809 H (5-40) units/L ALT 2220 H (7-56) units/L Alkaline Phosphatase 138 H (35-129) units/L Total Creatine Kinase 530118 H (55-170) units/L CK-MB (CK-2) (0.0-4.0) ng/mL Troponin T (0.00-0.029) ng/mL Total Protein 5.2 L D (6.3-8.2) g/dL Albumin 2.9 L (3.9-5) g/dL All other labs normal. Assessment and Plan Assessment and plan: Impression: Today patient is lethargic and mumbling most of his answers when questioned during the assessment. Elevated LF's, INR and PT. CK 600681. CR 12.1. GI and Nephro is following patient. Patient positive for benzos and cocaine. No acute withdrawals noted (etoh). Patient in restraints. Medical: Acute Toxic Metabolic Encephalopathy Recommendation/Plan: D/C CIWA. If patient need conscious sedation for a procedure less than 10 mins and or for agitation use Thorazine 25 mg IM or a second option, Haldol 5 mg IM. The patient's CK is elevated, only use the antipsychotics per the recommendation. If the patient need conscious sedation for more the 10 mins consult anesthesia. Will assess patient daily. Recommend the following delirium precautions below: 1. Frequently reorient patient and involve him/her in their care (simple explanations of procedures, tests, medications). 2. Lights on and shades open during daytime hours. 3. Try to avoid unnecessary interruptions to sleep during nighttime hours. 4. Obtain glasses, hearing aids from home if patient uses these at baseline. 5. Avoid medications that may exacerbate delirium (especially narcotics, barbiturates, ambien, lunesta, benzos, and medications with excessive anticholinergic properties). 6. Recommend 1:1 sitter for safety. 7. D/C restraints when not indicated.
[2017-04-30] MEDS: ASPIRIN PO SCH (10:59)
[2017-04-30] MEDS: LOPRESSOR PO SCH ×2 (10:59→21:28)
[2017-04-30 12:04] LABS: Creatinine,Urine 97.3 mg/dL (0.1-20.0)
--- NOTE | 2017-04-30 12:09 | Progress Note ---
Assessment and Plan 26yo AAM: 1. Mildly elevated trop * nl ecg * non-specific finding given below * trending down 2. Rhabdomolysis * antonia * metabolic acidemia 3. Hepatic failure 4. elevated inr 5. encephalopthy 6. polysubstance abuse aggressive fluid resuscitation underway hd being started pt is critically ill and high risk gi/nephrology/critical care on board ecg is normal f/u tte (not done yet) cont asa psych eval also underway Subjective Date of service: 04/30/17 Principal diagnosis: severe renal failure Interval history: awake but not conversant Objective Vital Signs Temp Pulse Resp BP Pulse Ox 04/30/17 10:59 102 H 164/99 04/30/17 10:51 96 H 23 164/99 98 04/30/17 10:41 100 H 29 H 164/99 96 04/30/17 10:30 98 H 31 H 164/99 97 04/30/17 10:21 92 H 24 156/89 98 04/30/17 10:11 93 H 24 156/89 98 04/30/17 10:00 91 H 26 H 156/89 98 04/30/17 09:51 92 H 28 H 160/95 99 04/30/17 09:41 93 H 25 H 160/95 98 04/30/17 09:30 98 H 36 H 160/95 97 04/30/17 09:21 92 H 21 181/97 98 04/30/17 09:11 104 H 23 181/97 96 04/30/17 09:00 104 H 22 181/97 96 04/30/17 08:51 95 H 25 H 180/97 97 04/30/17 08:41 95 H 26 H 180/97 97 04/30/17 08:30 94 H 26 H 162/87 98 04/30/17 08:25 98.3 F 04/30/17 08:23 96 H 25 H 178/93 97 04/30/17 08:10 107 H 38 H 180/97 97 04/30/17 08:00 110 H 27 H 169/94 98 04/30/17 07:50 96 H 24 169/94 98 04/30/17 07:40 93 H 22 169/94 100 04/30/17 07:30 98 H 22 178/93 99 04/30/17 07:20 98 H 30 H 178/93 99 04/30/17 07:10 97 H 25 H 178/93 98 04/30/17 07:06 95 04/30/17 05:12 99.0 F 100 H 20 172/91 96 04/30/17 00:55 98.1 F 20 157/81 04/29/17 20:40 98.5 F 116 H 18 178/58 90 04/29/17 17:24 98.8 F 114 H 18 162/86 93 04/29/17 14:00 111 H - Physical Examination Neck: Positive: neck supple - Labs and Meds Cardiac Enzymes 04/29/17 04/30/17 Range/Units 10:38 08:19 AST 4809 H (5-40) units/L CK-MB (CK-2) 537.2 H (0.0-4.0) ng/mL Coagulation 04/30/17 Range/Units 08:19 PT 41.1 H (12.2-14.9) Sec. INR 3.95 H (0.87-1.13) CBC 04/30/17 Range/Units 08:19 WBC 12.8 H (4.5-11.0) K/mm3 RBC 4.53 (3.65-5.03) M/mm3 Hgb 12.4 (11.8-15.2) gm/dl Hct 38.0 (35.5-45.6) % Plt Count 153 (140-440) K/mm3 Comprehensive Metabolic Panel 04/30/17 Range/Units 08:19 Sodium 141 (137-145) mmol/L Potassium 5.0 (3.6-5.0) mmol/L Chloride 99.4 (98-107) mmol/L Carbon Dioxide 14 L (22-30) mmol/L BUN 84 H (9-20) mg/dL Creatinine 12.1 H D (0.8-1.5) mg/dL Glucose 97 (75-100) mg/dL Calcium 6.1 L (8.4-10.2) mg/dL Direct Bilirubin 2.2 H (0-0.2) mg/dL Indirect Bilirubin 0.9 mg/dL AST 4809 H (5-40) units/L ALT 2220 H (7-56) units/L Alkaline Phosphatase 138 H (35-129) units/L Total Protein 5.2 L D (6.3-8.2) g/dL Albumin 2.9 L (3.9-5) g/dL
[2017-04-30 12:16] LABS: Protein/Creatinine Ratio,Urine 5.8
[2017-04-30] MEDS: SODIUM BICARBONATE 150 MEQ in D5W 1,000 ML IV SCH (12:28)
--- NOTE | 2017-04-30 14:36 | Ultrasound Report ---
ULTRASOUND ABDOMEN COMPLETE: TECHNIQUE: Transabdominal ultrasound with color Doppler interrogation. HISTORY: abdominal pain. COMPARISON: none. FINDINGS: LIVER: Normal. BILIARY SYSTEM: The gallbladder is not clearly identified. The gallbladder appears to be contracted but no obvious cholelithiasis. The CBD measures 2 mm. PANCREAS: Normal. SPLEEN: 9.4 cm. No focal lesion. KIDNEYS: The kidneys are normal size, contour and position. There is marked increased renal parenchymal echotexture suggesting nonspecific renal parenchymal disease. No evidence for focal renal lesion, hydronephrosis or perinephric fluid. AORTA/IVC: Normal. ASCITES: None. IMPRESSION: Echogenic kidneys consistent with nonspecific renal parenchymal disease. No obstructive uropathy. Contracted gallbladder.
[2017-04-30] MEDS: PROTONIX IV SCH ×2 (14:39→21:29)
[2017-04-30] MEDS: VITAMIN K (ADULT ONLY) SUB-Q SCH (14:39)
--- NOTE | 2017-04-30 15:15 | Consultation ---
History of Present Illness Consult date: 04/30/17 Requesting physician: SHELIA ROE Reason for consult: other (SIRS, CAIO; Rhabdomyolysis; Coaine ABuse; Ischemic Hepatitis) History of present illness: PULMONARY/CCM CONSULT NOTE (Full dictation # [id number]) Please see dictated notes for full details Past History Past Medical History: other (Unable to obtain) Past Surgical History: Other (Unable to obtain) Social history: other (Unable to obtain ) Family history: no significant family history Medications and Allergies Allergies Allergy/AdvReac Type Severity Reaction Status Date / Time No Known Allergies Allergy Verified 04/28/17 17:50 Home Medications Medication Instructions Recorded Confirmed Last Taken Type No Known Home Medications [No 04/27/17 04/29/17 Unknown History Reported Home Medications] Active Meds: Active Medications Aspirin (Aspirin) 325 mg PO QDAY [facility] Last Admin: 04/30/17 10:59 Dose: Not Given Hydralazine HCl (Apresoline) 10 mg IV Q4HR PRN PRN Reason: BP >160/100 Sodium Bicarbonate 150 meq/ (Dextrose) 1,150 mls @ 75 mls/hr IV DIRECT [facility] Last Admin: 04/30/17 12:28 Dose: 75 mls/hr Lorazepam (Ativan) 2 mg IV Q6HR PRN PRN Reason: Agitation Metoprolol Tartrate (Lopressor) 25 mg PO BID [facility] Last Admin: 04/30/17 10:59 Dose: Not Given Ondansetron HCl (Zofran) 4 mg IV Q4H PRN PRN Reason: Nausea And Vomiting Last Admin: 04/30/17 08:13 Dose: 4 mg Pantoprazole Sodium (Protonix) 40 mg IV BID [facility] Last Admin: 04/30/17 14:39 Dose: 40 mg Phytonadione (Vitamin K (Adult Only)) 10 mg SUB-Q Q24H [facility] Stop: 05/01/17 10:01 Last Admin: 04/30/17 14:39 Dose: 10 mg Physical Examination Vital signs: Vital Signs BP Pulse Ox 162/74 98 04/28/17 17:27 04/28/17 17:27 Results - Laboratory Findings CBC and BMP: 04/30/17 08:19 04/30/17 08:19 PT/INR, D-dimer PT 41.1 Sec. (12.2-14.9) H 04/30/17 08:19 INR 3.95 (0.87-1.13) H 04/30/17 08:19 Abnormal lab findings: Abnormal Labs 04/28/17 04/28/17 04/28/17 18:25 19:13 21:55 WBC 20.3 H RBC 5.29 H Hct 47.0 H D MCH Seg Neuts % (Manual) 91.0 H Lymphocytes % (Manual) 6.0 L Seg Neutrophils # Man 18.5 H Lymphocytes # (Manual) PT 50.8 H INR 5.15 H* APTT 52.6 H Carbon Dioxide 11 L BUN 45 H Creatinine 5.8 H Glucose 67 L POC Glucose Calcium 7.5 L Total Bilirubin 1.60 H Direct Bilirubin AST 2868 H ALT 719 H Alkaline Phosphatase Ammonia Total Creatine Kinase 890412 H CK-MB (CK-2) Troponin T 0.577 H* Total Protein Albumin 3.7 L Urine Creatinine Urine Microalbumin Urine Total Protein 04/29/17 04/29/17 04/29/17 06:55 06:55 06:55 WBC 21.7 H RBC Hct MCH Seg Neuts % (Manual) 99.0 H Lymphocytes % (Manual) 0 L Seg Neutrophils # Man 21.5 H Lymphocytes # (Manual) 0.0 L PT 51.5 H INR 5.23 H* APTT Carbon Dioxide 11 L BUN 55 H Creatinine 7.6 H Glucose 43 L POC Glucose Calcium 6.3 L D Total Bilirubin Direct Bilirubin AST ALT Alkaline Phosphatase Ammonia Total Creatine Kinase CK-MB (CK-2) Troponin T Total Protein Albumin Urine Creatinine Urine Microalbumin Urine Total Protein 04/29/17 04/29/17 04/29/17 06:55 10:38 17:32 WBC RBC Hct MCH Seg Neuts % (Manual) Lymphocytes % (Manual) Seg Neutrophils # Man Lymphocytes # (Manual) PT INR APTT Carbon Dioxide BUN Creatinine Glucose POC Glucose 55 L Calcium Total Bilirubin Direct Bilirubin AST ALT Alkaline Phosphatase Ammonia 90.0 H Total Creatine Kinase 273569 H CK-MB (CK-2) 537.2 H Troponin T 0.396 H* D Total Protein Albumin Urine Creatinine Urine Microalbumin Urine Total Protein 04/30/17 04/30/17 04/30/17 07:20 08:19 08:19 WBC 12.8 H RBC Hct MCH 27 L Seg Neuts % (Manual) 83.0 H Lymphocytes % (Manual) 9.0 L Seg Neutrophils # Man 10.6 H Lymphocytes # (Manual) PT 41.1 H INR 3.95 H APTT Carbon Dioxide BUN Creatinine Glucose POC Glucose Calcium Total Bilirubin Direct Bilirubin AST ALT Alkaline Phosphatase Ammonia Total Creatine Kinase CK-MB (CK-2) Troponin T Total Protein Albumin Urine Creatinine 97.3 H Urine Microalbumin 364.3 H Urine Total Protein 564 H 04/30/17 08:19 WBC RBC Hct MCH Seg Neuts % (Manual) Lymphocytes % (Manual) Seg Neutrophils # Man Lymphocytes # (Manual) PT INR APTT Carbon Dioxide 14 L BUN 84 H Creatinine 12.1 H D Glucose POC Glucose Calcium 6.1 L Total Bilirubin 3.10 H Direct Bilirubin 2.2 H AST 4809 H ALT 2220 H Alkaline Phosphatase 138 H Ammonia Total Creatine Kinase 589231 H CK-MB (CK-2) Troponin T Total Protein 5.2 L D Albumin 2.9 L Urine Creatinine Urine Microalbumin Urine Total Protein
--- NOTE | 2017-04-30 15:31 | Event Note ---
Date: 04/30/17 Temporary dialysis catheter requested by nephrology. Patient is in rhabdomyolysis with subsequent acute renal failure. An emergency two physician consent was obtained, as the patient has altered mental status and no family members were available for consent.
--- NOTE | 2017-04-30 15:33 | Operative Report ---
Operative Report Operative Report: Procedure: 1. Right internal jugular non-tunneled dialysis catheter placement 2. Ultrasound guided puncture of the right internal jugular vein. Date: 04/30/2017 Physician: Rupesh Quintanilla MD Indication: 26 year old male with renal failure, in need of dialysis. Technique: The patient was placed in the supine position and prepped and draped in the usual sterile fashion. A timeout was performed. Local anesthetic was administered. Under direct ultrasound guidance, the right internal jugular vein was accessed with an 18-gauge needle. An .035 wire was advanced. After serial tissue dilation, the dialysis catheter was advanced over the wire. Vacuum aspiration and flushing was performed. Each lumen was instilled with heparin. The catheter was secured to the skin with 2-0 Ethilon suture. Sterile dressings were placed. Findings: 1. Ultrasound demonstrates a patent and compressible right internal jugular vein. 2. There is successful placement of a 15 cm non-tunneled dialysis catheter via the right internal jugular vein. 3. Each lumen flushes and aspirates briskly. 4. Positioning of the catheter tip within the right atrium will be confirmed by Xray
--- NOTE | 2017-04-30 16:25 | XRay Report ---
FINAL REPORT PROCEDURE: XR CHEST 1V AP TECHNIQUE: Chest radiograph anteroposterior view. CPT 55407 HISTORY: right IJ vas cath placement COMPARISON: None FINDINGS: Right IJ Vas-Cath is in place, catheter tip in the right atrium. There is no evident pneumothorax. The heart is normal in size. The lungs are clear. There is no evident pleural fluid or acute osseous abnormality. IMPRESSION: Right IJ Vas-Cath in place, catheter tip in the right atrium. No radiographically evident acute disease.
--- NOTE | 2017-04-30 16:28 | Progress Note ---
Assessment and Plan Assessment and plan: 26-year-old man with a past medical history of polysubstance abuse which includes cocaine and alcohol and tobacco. The patient was recently just admitted to the hospital, he was found in the street agitated and confused and yelling. He was admitted for toxic metabolic encephalopathy, cocaine abuse, acute kidney injury and metabolic acidosis and non-STEMI. The patient's mentation improved and he signed himself out AGAINST MEDICAL ADVICE. Only to return to the hospital the same day complaining of not feeling well, generalized muscle pains, generalized weakness. He now presents with fulminant liver failure, acute kidney failure, non-STEMI, rhabdomyolysis and metabolic acidosis. Acute Toxic metabolic encephalopathy - UDS is positive for cocaine - Supportive care - CT head within normal limits, image reviewed Fulminant hepatic failure, likely due to ischemic injury from cocaine -check tylenol level, etiology unclear at this time - Elevated transaminitis, with elevated INR -Hepatitis panel negative - GI consult appreciated -Continue IV fluids -HIV serology negative Acute renal failure , likely due to vasomotor nephropathy and myoglobin toxicity and ischemic injury -for emergent HD today, vasc cath has been place -renal US wnl Non traumatic Rhabdomyolysis received IVF, for HD today SIRS - Likely reactive, no evidence of infection Type 2 MD Case discussed with product line manager. Unlikely to be from a cardiac etiology Elevated INR/Coagulopathy due to liver failure continue vitamin K daily, check INR daily INR 5.23, improved to 3.9 -plt count wnl, not cw DIC metabolic acidosis on bicarb drip, may be dc after started on HD Polysubstance abuse cocaine, etoh and tobacco will provide counseling when mentation improved Acute GI bleed likely cal crespo tear in stomach or esophagus, started with vomiting of clear liquid and then became bloody IV PPI, GI input appreciated Prognosis - Guarded JARROD is his grandmother, but she is unable to come to the hospital, will keep her informed daily over the phone The high probability of a clinically significant, sudden or life threatening deterioration of the [GI, hematologic, renal] system(s) required my full and direct attention, intervention and personal management. The aggregate critical care time was [45] minutes. This time is in addition to time spent performing reported procedures but includes the following: [] Data Review and interpretation [] Patient assessment and monitoring of vital signs [] Documentation [] Medication orders and management History Interval history: Patient remains confused groaning, - -His nurse noticed that he vomited coffee grounds and spit up all over the bed -he has been too confused to communicate effectively Hospitalist Physical - Physical exam Narrative exam: General.: Appears well, no distress, nontoxic HEENT: Moist mucous membranes, extraocular muscles intact, no lymphadenopathy Neck: supple Cardiac: S1-S2 heard Lungs: clear to auscultation bilaterally Abdomen: soft , nontender, nondistended, bowel sounds positive Extremities: no edema clubbing or cyanosis Skin: no rash or lesions Neurologic: Moves all extremities, lethargic, obeys commands, unable to have a detailed conversation, as he keeps falling asleep Psych: Lethargic, obeys commands, judgment is not intact - Constitutional Vitals: Temp Pulse Resp BP Pulse Ox 98.1 F 92 H 25 H 165/94 98 04/30/17 15:29 04/30/17 15:00 04/30/17 15:00 04/30/17 15:00 04/30/17 15:00 Results - Labs CBC & Chem 7: 04/30/17 08:19 04/30/17 08:19 Labs: Laboratory Last Values WBC 12.8 K/mm3 (4.5-11.0) H 04/30/17 08:19 RBC 4.53 M/mm3 (3.65-5.03) 04/30/17 08:19 Hgb 12.4 gm/dl (11.8-15.2) 04/30/17 08:19 Hct 38.0 % (35.5-45.6) 04/30/17 08:19 MCV 84 fl (84-94) 04/30/17 08:19 MCH 27 pg (28-32) L 04/30/17 08:19 MCHC 33 % (32-34) 04/30/17 08:19 RDW 14.7 % (13.2-15.2) 04/30/17 08:19 Plt Count 153 K/mm3 (140-440) 04/30/17 08:19 Add Manual Diff Complete 04/30/17 08:19 Total Counted 100 04/30/17 08:19 Seg Neutrophils % Quality Control Inspector Heading 04/29/17 06:55 Seg Neuts % (Manual) 83.0 % (40.0-70.0) H 04/30/17 08:19 Band Neutrophils % 6.0 % 04/30/17 08:19 Lymphocytes % (Manual) 9.0 % (13.4-35.0) L 04/30/17 08:19 Reactive Lymphs % (Man) 0 % 04/30/17 08:19 Monocytes % (Manual) 2.0 % (0.0-7.3) 04/30/17 08:19 Eosinophils % (Manual) 0 % (0.0-4.3) 04/29/17 06:55 Basophils % (Manual) 0 % (0.0-1.8) 04/29/17 06:55 Metamyelocytes % 0 % 04/30/17 08:19 Myelocytes % 0 % 04/30/17 08:19 Promyelocytes % 0 % 04/30/17 08:19 Blast Cells % 0 % 04/30/17 08:19 Nucleated RBC % Not Reportable 04/30/17 08:19 Seg Neutrophils # Man 10.6 K/mm3 (1.8-7.7) H 04/30/17 08:19 Band Neutrophils # 0.8 K/mm3 04/30/17 08:19 Lymphocytes # (Manual) 1.2 K/mm3 (1.2-5.4) 04/30/17 08:19 Abs React Lymphs (Man) 0.0 K/mm3 04/30/17 08:19 Monocytes # (Manual) 0.3 K/mm3 (0.0-0.8) 04/30/17 08:19 Eosinophils # (Manual) 0.0 K/mm3 (0.0-0.4) 04/30/17 08:19 Basophils # (Manual) 0.0 K/mm3 (0.0-0.1) 04/30/17 08:19 Metamyelocytes # 0.0 K/mm3 04/30/17 08:19 Myelocytes # 0.0 K/mm3 04/30/17 08:19 Promyelocytes # 0.0 K/mm3 04/30/17 08:19 Blast Cells # 0.0 K/mm3 04/30/17 08:19 WBC Morphology Not Reportable 04/30/17 08:19 Hypersegmented Neuts Not Reportable 04/30/17 08:19 Hyposegmented Neuts Not Reportable 04/30/17 08:19 Hypogranular Neuts Not Reportable 04/30/17 08:19 Smudge Cells Not Reportable 04/30/17 08:19 Toxic Granulation Not Reportable 04/30/17 08:19 Toxic Vacuolation Not Reportable 04/30/17 08:19 Dohle Bodies Not Reportable 04/30/17 08:19 Pelger-Huet Anomaly Not Reportable 04/30/17 08:19 Lizette Rods Not Reportable 04/30/17 08:19 Platelet Estimate Not Reportable 04/30/17 08:19 Clumped Platelets Not Reportable 04/30/17 08:19 Plt Clumps, EDTA Not Reportable 04/30/17 08:19 Large Platelets Not Reportable 04/30/17 08:19 Giant Platelets Not Reportable 04/30/17 08:19 Platelet Satelliting Not Reportable 04/30/17 08:19 Plt Morphology Comment Not Reportable 04/30/17 08:19 RBC Morphology Not Reportable 04/30/17 08:19 Dimorphic RBCs Not Reportable 04/30/17 08:19 Polychromasia Rare 04/30/17 08:19 Hypochromasia Not Reportable 04/30/17 08:19 Poikilocytosis Few 04/30/17 08:19 Anisocytosis 1+ 04/30/17 08:19 Microcytosis Not Reportable 04/30/17 08:19 Macrocytosis Not Reportable 04/30/17 08:19 Spherocytes Not Reportable 04/30/17 08:19 Pappenheimer Bodies Not Reportable 04/30/17 08:19 Sickle Cells Not Reportable 04/30/17 08:19 Target Cells Not Reportable 04/30/17 08:19 Tear Drop Cells Not Reportable 04/30/17 08:19 Ovalocytes Not Reportable 04/30/17 08:19 Helmet Cells Not Reportable 04/30/17 08:19 Conner-Silverton Bodies Not Reportable 04/30/17 08:19 [place] Rings Not Reportable 04/30/17 08:19 Bath Cells Not Reportable 04/30/17 08:19 Bite Cells Not Reportable 04/30/17 08:19 Crenated Cell Not Reportable 04/30/17 08:19 Elliptocytes Not Reportable 04/30/17 08:19 Acanthocytes (Spur) Not Reportable 04/30/17 08:19 Rouleaux Not Reportable 04/30/17 08:19 Hemoglobin C Crystals Not Reportable 04/30/17 08:19 Schistocytes Not Reportable 04/30/17 08:19 Malaria parasites Not Reportable 04/30/17 08:19 Noel Bodies Not Reportable 04/30/17 08:19 Hem Pathologist Commnt No 04/30/17 08:19 PT 41.1 Sec. (12.2-14.9) H 04/30/17 08:19 INR 3.95 (0.87-1.13) H 04/30/17 08:19 APTT 52.6 Sec. (24.2-36.6) H 04/28/17 21:55 Sodium 141 mmol/L (137-145) 04/30/17 08:19 Potassium 5.0 mmol/L (3.6-5.0) 04/30/17 08:19 Chloride 99.4 mmol/L (98-107) 04/30/17 08:19 Carbon Dioxide 14 mmol/L (22-30) L 04/30/17 08:19 Anion Gap 33 mmol/L 04/30/17 08:19 BUN 84 mg/dL (9-20) H 04/30/17 08:19 Creatinine 12.1 mg/dL (0.8-1.5) H D 04/30/17 08:19 Estimated GFR 6 ml/min 04/30/17 08:19 BUN/Creatinine Ratio 7 % 04/30/17 08:19 Glucose 97 mg/dL (75-100) 04/30/17 08:19 POC Glucose 86 (70-105) 04/30/17 12:04 Calcium 6.1 mg/dL (8.4-10.2) L 04/30/17 08:19 Total Bilirubin 3.10 mg/dL (0.1-1.2) H 04/30/17 08:19 Direct Bilirubin 2.2 mg/dL (0-0.2) H 04/30/17 08:19 Indirect Bilirubin 0.9 mg/dL 04/30/17 08:19 AST 4809 units/L (5-40) H 04/30/17 08:19 ALT 2220 units/L (7-56) H 04/30/17 08:19 Alkaline Phosphatase 138 units/L (35-129) H 04/30/17 08:19 Ammonia 90.0 umol/L (25-60) H 04/29/17 06:55 Total Creatine Kinase 133118 units/L (55-170) H 04/30/17 08:19 CK-MB (CK-2) 537.2 ng/mL (0.0-4.0) H 04/29/17 10:38 CK-MB (CK-2) Rel Index 0.4 (0-4) 04/29/17 10:38 Troponin T 0.396 ng/mL (0.00-0.029) H* D 04/29/17 10:38 Total Protein 5.2 g/dL (6.3-8.2) L D 04/30/17 08:19 Albumin 2.9 g/dL (3.9-5) L 04/30/17 08:19 Albumin/Globulin Ratio 1.3 % 04/30/17 08:19 Urine Creatinine 97.3 mg/dL (0.1-20.0) H 04/30/17 07:20 Urine Microalbumin 364.3 mg/dL (0.1-34.0) H 04/30/17 07:20 Microalb/Creat Ratio 3744.0 ug/mg 04/30/17 07:20 Protein/Creatinin Ratio 5.80 04/30/17 07:20 Urine Sodium 81 mmol/L 04/30/17 07:20 Urine Total Protein 564 mg/dL (5-11.8) H 04/30/17 07:20 Urine Opiates Screen Presumptive negative 04/29/17 02:43 Urine Methadone Screen Presumptive negative 04/29/17 02:43 Acetaminophen < 15.0 ug/mL (10.0-30.0) 04/29/17 10:38 Ur Barbiturates Screen Presumptive negative 04/29/17 02:43 Ur Phencyclidine Scrn Presumptive negative 04/29/17 02:43 Ur Amphetamines Screen Presumptive negative 04/29/17 02:43 U Benzodiazepines Scrn Presumptive positive 04/29/17 02:43 Urine Cocaine Screen Presumptive positive 04/29/17 02:43 U Marijuana (THC) Screen Presumptive negative 04/29/17 02:43 Drugs of Abuse Note Disclamer 04/29/17 02:43 Hepatitis A IgM Ab Non-reactive (NonReactive) 04/28/17 19:13 Hep Bs Antigen Non-reactive (Negative) 04/28/17 19:13 Hep B Core IgM Ab Non-reactive (NonReactive) 04/28/17 19:13 Hepatitis C Antibody Non-reactive (NonReactive) 04/28/17 19:13 HIV 1&2 Antibody Rapid Non react (Non React) 04/30/17 08:19 HIV P24 Antigen Non react (Non React) 04/30/17 08:19
[2017-04-30] MEDS ORDERED: NACL 0.9% 1000 ML 1,000 ML IV SCH (17:00)
--- NOTE | 2017-04-30 20:11 | XRay Report ---
FINAL REPORT PROCEDURE: XR ABDOMEN 1V AP TECHNIQUE: Abdominal radiograph, single supine AP view. HISTORY: Abdominal Pain COMPARISON: No prior studies are available for comparison. FINDINGS: Bowel gas pattern:Intestinal gas is distributed predominantly in nondistended colon and stomach.. Masses or calcifications:None. Bony structures:No significant abnormality. Other:None. IMPRESSION: Nonspecific intestinal gas pattern. Otherwise negative study.
[2017-04-30] MEDS: APRESOLINE IV PRN (21:29)
--- NOTE | 2017-04-30 21:46 | Cat Scan Report ---
FINAL REPORT PROCEDURE: CT ABDOMEN PELVIS WO CON TECHNIQUE: Computerized axial tomography of the abdomen and pelvis was performed without intravenous contrast. This study is performed without intravascular contrast material and its sensitivity for abdominal and pelvic pathology, including neoplasms, inflammation, abscess, free fluid, thrombosis, arterial dissection and infarction, is reduced compared with a contrast enhanced study. HISTORY: liver failure, abdominal pain COMPARISON: No prior studies are available for comparison. FINDINGS: Infiltrates are noted in the left lower lobe and lingula. Mild bilateral pleural effusions are identified. There is fatty infiltration of liver. Spleen, and adrenal glands are within normal limits. Bilateral kidneys demonstrate normal density without calculi or hydronephrosis. A Vela bulb is in situ with an empty urinary bladder. Aorta is of normal caliber. There is no free fluid or free air. Gallbladder is unremarkable. Small bowel loops are within normal limits. Appendix is normal. IMPRESSION: Fatty liver. A infiltrates the left lower lung Mild bilateral pleural effusions No acute intra-abdominal or pelvic pathology.
[2017-04-30] MEDS ORDERED: LOPRESSOR IV PRN (23:30)
--- NOTE | 2017-04-30 23:39 | XRay Report ---
FINAL REPORT PROCEDURE: XR ABDOMEN 1V AP TECHNIQUE: Abdominal radiograph, single supine AP view. HISTORY: NG tube placement COMPARISON: No prior studies are available for comparison. FINDINGS: Bowel gas pattern:Intestinal gas is distributed predominantly in nondistended colon.. Masses or calcifications:None. Bony structures:No significant abnormality. Other:Nasogastric tube is terminating in the stomach.. IMPRESSION: Nonspecific intestinal gas pattern. Nasogastric tube is terminating in the stomach.
[2017-04-30] MEDS ORDERED: CARDENE 50 MG in NACL 0.9% 250ML 230 ML IV SCH (23:45)
--- NOTE | 2017-05-01 03:31 | Consultation ---
PULMONARY AND CRITICAL CARE CONSULT NOTE CONSULTING PHYSICIAN: Dr. Yang. REASON FOR CONSULTATION: Critical care management, acute kidney injury, rhabdomyolysis, tobacco abuse, cocaine abuse and ischemic hepatitis, likely. CHIEF COMPLAINT AND HISTORY OF PRESENT ILLNESS: The patient is a 26-year-old male with a past medical history significant for diagnosis of cocaine abuse, who was initially admitted to the floor yesterday after he showed up to the Emergency Room complaining of body aches. He had been admitted with metabolic encephalopathy the day prior and again signed out against medical advice. When he came back, he stated he was feeling worse. He was complaining of chest pain. He was aching all over. He had been found to have an element of rhabdomyolysis and a non-STEMI and CAIO, metabolic acidosis earlier before he signed out AMA. He was admitted in essentially hepatic failure with altered mental status and I believe this time was admitted to the Intensive Care Unit after going to the floor. When I stopped by to see him, he was resting in bed. He had pulled out his NG tube, which upon initial insertion did reveal some coffee-ground emesis. He was complaining of generalized pain at the time I saw him, but again was encephalopathic, delirious, unable to give me a concise history. I do not have any history of vomiting or overt aspiration. With regards to tobacco use, the patient does smoke cigarettes. The above is as much of the history of presentation as I have. PAST MEDICAL HISTORY: Cocaine abuse. PAST SURGICAL HISTORY: Unknown. MEDICATIONS: He was on at the time I stopped by to see him, according to the medication administration record included the following: He was on hydralazine 10 mg IV q. 4 h. p.r.n. blood pressure greater than 160/100, Ativan 2 mg IV q. 6 hours p.r.n. agitation, Lopressor 25 mg p.o. b.i.d., Zofran 4 mg IV q. 4 hours p.r.n., Protonix 40 mg IV b.i.d., vitamin K he had received is 10 mg subcutaneous q. 24 h., and he was on a sodium bicarbonate drip D5W with 3 amps of sodium bicarbonate per liter running at 75 mL per hour. ALLERGIES: No known drug allergies. DIET: Well-built gentleman, acute weight loss or gain history is unknown. FAMILY AND SOCIAL HISTORY: Apparently lives in the community. He does have tobacco and cocaine abuse. Alcohol use history is unknown. REVIEW OF SYSTEMS: Unobtainable secondary to the patient's medical and mental condition. Since he has been here, no gross hematochezia or melena. He has had hematemesis type effluent from the NG tube. No witnessed seizures; otherwise, unobtainable. PHYSICAL EXAMINATION: VITAL SIGNS: At presentation, afebrile, temperature 98.8 Fahrenheit, pulse 94, respiratory rate was 24, blood pressure 162/74, oxygen sats 99%, inspired oxygen concentration was not recorded. He has been afebrile since. GENERAL: He is a well-built, young male, looks his stated age, has a lot of tattoos over his body. Normocephalic, atraumatic, waxing and waning level of consciousness in mild respiratory distress. HEAD, EYES, EARS, NOSE AND THROAT: He is anicteric. No conjunctival erythema. No thyromegaly, no gross jugular venous distention. Grossly, no palpable lymph nodes in the supraclavicular or submandibular lymph node chains. LUNGS: Auscultation of both lung anderson unremarkable. Lungs are clear bilaterally. HEART: Heart sounds 1 and 2 are heard, regular rate and rhythm at time of my evaluation. No rubs, no murmurs. ABDOMEN: Full. It is firm, but not tense. It is mildly tender diffusely. Bowel sounds hypoactive at best. Diminished mostly. No palpable hepatosplenomegaly. EXTREMITIES: Without overt digital clubbing, cyanosis or pedal edema. Dorsalis pedis pulses are palpable bilaterally. NEUROLOGIC: Pupils are equal, round, about 3-4 mm, reactive to light. Extraocular muscle movements could not be assessed. He moves all 4 extremities spontaneously. The skin is of normal turgor. He has tattoos all over the skin. No cellulitis, no rash. LABORATORY DATA: From my review are as follows: White cell count on admission 20,300 with a hemoglobin of 14.9, hematocrit of 47.0, platelet count was 175. No band forms were reported. INR was 5.15 at his initial presentation. Serum sodium 139, potassium 4.7, chloride 104, bicarbonate was 11, BUN 45, creatinine 5.8 and glucose was 67. Total bilirubin was 1.6, AST 2868, ALT 719. CPK was 112,115. Troponin was 0.577. Urine drug screen was positive for cocaine. Hepatitis panel was negative that was on the . Most recent labs, INR is down to 3.95. Serum bicarbonate is 14, BUN is 84, creatinine is now 12.1. Total CPK is 117,000. HIV screen nonreactive. No microbiology studies. Really no chest x-ray. A 2D echocardiogram was done yesterday. It shows a normal ejection fraction, no pericardial effusion. really unremarkable chest x-ray. He does have some elevation in his right ventricular systolic pressures of 35 mmHg. ASSESSMENT AND PLAN: 1. Acute cocaine intoxication with ischemic pathologies generalized. 2. Rhabdomyolysis. 3. Likely ischemic hepatitis. 4. Acute kidney injury. 5. Possible ischemic bowel. 6. Tobacco use disorder. PLAN: I have urged him to allow us to replace the NG tube to keep it to continuous suction. A CT scan of the abdomen and pelvis has been ordered and I will follow along with that. He is about to get a Vas-Cath placed for hemodialysis, which is appropriate at this point. He will continue on the bicarbonate drip at this point. He will continue on GI prophylaxis. He will also be placed on DVT prophylaxis. Oxygen will be supplemented as necessary to keep sats greater than or equal to about 90%. Aspiration precautions will be maintained. He will be kept n.p.o. for now. No acute indication for an infective therapy. I will get a lactic acid level just to try and evaluate for the possibility of ischemic bowel as well as follow the CT abdomen and pelvis. He will get p.r.n. analgesia while he is here. He will benefit from possible psychiatry evaluation, but certainly he will be counseled once he is doing much better. Flu and pneumonia vaccination will be per protocol. I should mention Tylenol level was also undetectable. Thank you very much for the consult. We will follow along and make further recommendations as picture progresses/becomes clearer. JOB# [id number] JENNA/HERMILA
[2017-05-01] MEDS: SODIUM BICARBONATE 150 MEQ in D5W 1,000 ML IV SCH (05:56)
[2017-05-01 07:48] LABS: INR 1.97 (0.87-1.13)
[2017-05-01 07:55] LABS: Bilirubin,Direct 3.8 mg/dL (0-0.2); Calcium 6.4 mg/dL (8.4-10.2)
[2017-05-01] MEDS ORDERED: NACL 0.9% 100 ML IV PRN (09:10)
--- NOTE | 2017-05-01 09:21 | Progress Note ---
Assessment and Plan Acute Toxic Metabolic Encephalopathy: -Urine drug screen (UDS) positive for cocaine -S/p CT Head without contrast showed no acute intracranial abnormality -As per primary team Elevated Troponin: Chest Pain: -Cardiology consulted, follow up recs -most likely due to cocaine abuse and renal failure Acute Renal Failure possibly secondary to prerenal/ATN, rhabdomyolysis, worsened in setting of vomiting, diarrhea, and decreased oral intake, r/o obstruction, baseline SCr unknown: -Initiated on HD yesterday via Temporary Vascath. HD#2 today. Making minimal urine. -Switch bicarb drip to D5 1/2 NS as acidosis better. -Obtain renal ultrasound to r/o obstruction -Obtain daily weight -Strict intake and output -Gallagher Catheter: Yes Anion Gap Metabolic Acidosis: -On IHD. -Switch bicarb drip to D5 1/2 NS as acidosis better. Fulminant Hepatic Failure: Elevated INR: -Hepatitis panel negative -As per GI and primary team Rhabdomyolysis, suspected non-traumatic: -Monitor daily CK level Polysubstance Abuse: -UDS positive for cocaine -Per primary team will provide counseling for cocaine, alcohol and tobacco -As per primary team Plan d/w bedside geological aide. Subjective Date of service: 05/01/17 Principal diagnosis: severe renal failure Interval history: Lethargic. Has gallagher. Making urine. Objective - Exam Narrative Exam: GE:lethargic HEENT: Normocephalic Neck: No JVD CVS: RRR Chest: Coarse BS BL Abd: Soft/BS+ Ext: No cce Neuro: Lethargic UG: Gallagher with minimal dark urine. - Vital Signs Vital signs: Vital Signs - 12hr 04/30/17 04/30/17 04/30/17 21:28 21:29 21:30 Temperature Pulse Rate 97 H 96 H 93 H Respiratory 25 H Rate Respiratory Rate [ Generalized] Blood Pressure 159/106 159/106 159/100 O2 Sat by Pulse 96 Oximetry 04/30/17 04/30/17 04/30/17 21:40 21:50 22:00 Temperature Pulse Rate 96 H 99 H 102 H Respiratory 26 H 26 H 28 H Rate Respiratory Rate [ Generalized] Blood Pressure 166/98 160/99 169/99 O2 Sat by Pulse 98 98 98 Oximetry 04/30/17 04/30/17 04/30/17 22:10 22:20 22:30 Temperature Pulse Rate 102 H 113 H 103 H Respiratory 28 H 24 33 H Rate Respiratory Rate [ Generalized] Blood Pressure 166/98 195/105 195/106 O2 Sat by Pulse 98 96 98 Oximetry 04/30/17 04/30/17 04/30/17 22:31 22:40 22:50 Temperature Pulse Rate 100 H 101 H 101 H Respiratory 27 H 26 H 27 H Rate Respiratory Rate [ Generalized] Blood Pressure 166/98 178/103 171/103 O2 Sat by Pulse 98 97 97 Oximetry 04/30/17 04/30/17 04/30/17 23:00 23:10 23:20 Temperature Pulse Rate 100 H 97 H 95 H Respiratory 25 H 25 H 26 H Rate Respiratory Rate [ Generalized] Blood Pressure 174/99 166/103 171/105 O2 Sat by Pulse 96 98 98 Oximetry 04/30/17 04/30/17 04/30/17 23:23 23:30 23:40 Temperature 99.8 F H Pulse Rate 94 H 98 H Respiratory 25 H 26 H Rate Respiratory 18 Rate [ Generalized] Blood Pressure 167/105 168/100 O2 Sat by Pulse 97 97 Oximetry 04/30/17 05/01/17 05/01/17 23:51 00:01 00:11 Temperature Pulse Rate 104 H 104 H 100 H Respiratory 19 19 29 H Rate Respiratory Rate [ Generalized] Blood Pressure 168/100 168/100 168/100 O2 Sat by Pulse 96 97 97 Oximetry 05/01/17 05/01/17 05/01/17 00:21 00:30 00:41 Temperature Pulse Rate 98 H 104 H 114 H Respiratory 26 H 28 H 27 H Rate Respiratory Rate [ Generalized] Blood Pressure 182/101 167/92 167/92 O2 Sat by Pulse 98 97 94 Oximetry 05/01/17 05/01/17 05/01/17 00:51 01:00 01:10 Temperature Pulse Rate 119 H 120 H 122 H Respiratory 30 H 28 H 34 H Rate Respiratory Rate [ Generalized] Blood Pressure 154/77 154/77 O2 Sat by Pulse 94 92 93 Oximetry 05/01/17 05/01/17 05/01/17 01:20 01:30 01:40 Temperature Pulse Rate 123 H 124 H 131 H Respiratory 30 H 29 H 39 H Rate Respiratory Rate [ Generalized] Blood Pressure 154/77 152/71 152/71 O2 Sat by Pulse 93 93 93 Oximetry 05/01/17 05/01/17 05/01/17 01:50 02:00 02:10 Temperature Pulse Rate 131 H 127 H 135 H Respiratory 35 H 35 H 32 H Rate Respiratory Rate [ Generalized] Blood Pressure 152/71 151/75 151/75 O2 Sat by Pulse 94 93 93 Oximetry 05/01/17 05/01/17 05/01/17 02:13 02:20 02:29 Temperature Pulse Rate 131 H 128 H 128 H Respiratory 44 H Rate Respiratory Rate [ Generalized] Blood Pressure 151/75 151/75 O2 Sat by Pulse 92 Oximetry 05/01/17 05/01/17 05/01/17 02:30 02:40 02:50 Temperature Pulse Rate 107 H 108 H 111 H Respiratory 42 H 35 H 43 H Rate Respiratory Rate [ Generalized] Blood Pressure 144/77 144/77 144/77 O2 Sat by Pulse 92 91 94 Oximetry 05/01/17 05/01/17 05/01/17 03:00 03:10 03:20 Temperature Pulse Rate 112 H Respiratory 38 H Rate Respiratory Rate [ Generalized] Blood Pressure 142/75 142/75 142/75 O2 Sat by Pulse 93 94 96 Oximetry 05/01/17 05/01/17 05/01/17 03:25 03:30 03:40 Temperature 99.1 F Pulse Rate 110 H 109 H Respiratory 36 H 34 H Rate Respiratory Rate [ Generalized] Blood Pressure 143/72 143/72 O2 Sat by Pulse 95 95 Oximetry 05/01/17 05/01/17 05/01/17 03:50 04:00 04:10 Temperature Pulse Rate 107 H 107 H 107 H Respiratory 29 H 27 H 27 H Rate Respiratory Rate [ Generalized] Blood Pressure 143/72 145/79 145/79 O2 Sat by Pulse 95 95 95 Oximetry 05/01/17 05/01/17 05/01/17 04:20 04:30 04:40 Temperature Pulse Rate 108 H 106 H 106 H Respiratory 28 H 28 H 27 H Rate Respiratory Rate [ Generalized] Blood Pressure 145/79 147/82 147/82 O2 Sat by Pulse 95 96 96 Oximetry 05/01/17 05/01/17 05/01/17 04:50 05:00 05:10 Temperature Pulse Rate 107 H 106 H 107 H Respiratory 29 H 26 H 28 H Rate Respiratory Rate [ Generalized] Blood Pressure 147/82 146/84 146/84 O2 Sat by Pulse 96 96 96 Oximetry 05/01/17 05/01/17 05/01/17 05:20 05:30 05:40 Temperature Pulse Rate 113 H 108 H 108 H Respiratory 33 H 30 H 37 H Rate Respiratory Rate [ Generalized] Blood Pressure 146/84 158/81 158/81 O2 Sat by Pulse 95 94 95 Oximetry 05/01/17 05/01/17 05/01/17 05:50 06:00 06:10 Temperature Pulse Rate 107 H 106 H 109 H Respiratory 29 H 33 H 40 H Rate Respiratory Rate [ Generalized] Blood Pressure 158/81 161/92 161/92 O2 Sat by Pulse 96 95 95 Oximetry 05/01/17 05/01/17 05/01/17 06:20 06:30 06:40 Temperature Pulse Rate 108 H 110 H 110 H Respiratory 44 H 43 H 44 H Rate Respiratory Rate [ Generalized] Blood Pressure 161/92 154/94 154/94 O2 Sat by Pulse 95 95 Oximetry 05/01/17 05/01/17 05/01/17 06:50 07:00 07:11 Temperature Pulse Rate 108 H 105 H Respiratory 39 H 27 H 26 H Rate Respiratory Rate [ Generalized] Blood Pressure 154/94 153/90 O2 Sat by Pulse 95 95 99 Oximetry 05/01/17 08:00 Temperature 98 F Pulse Rate Respiratory Rate Respiratory Rate [ Generalized] Blood Pressure O2 Sat by Pulse Oximetry - Lab 04/30/17 08:19 05/01/17 07:05 Most recent lab results Calcium 6.4 mg/dL (8.4-10.2) L 05/01/17 07:05 Urine Creatinine 97.3 mg/dL (0.1-20.0) H 04/30/17 07:20 Urine Sodium 81 mmol/L 04/30/17 07:20 Urine Total Protein 564 mg/dL (5-11.8) H 04/30/17 07:20
[2017-05-01] MEDS: VITAMIN K (ADULT ONLY) SUB-Q SCH (09:49)
[2017-05-01] MEDS: PROTONIX IV SCH (09:49)
[2017-05-01] MEDS: LOPRESSOR PO SCH ×2 (09:51→19:42)
--- NOTE | 2017-05-01 10:18 | Progress Note ---
Subjective - Reason for Consult Consult date: 05/01/17 Reason for consult: Psychiatry Follow-up - Chief Complaint Chief complaint: "Hello" The patient is a 26-year-old male presenting with a chief complaint of body aches. This patient signed out AMA and returned to hospital a few hours later per the record. Psychiatry was consulted to see the patient. Today the patient is groaning during the assessment. He could answer very few questions when asked. He was asked about his cocaine use, he stated, "I used powder cocaine." No gestures of SI/HI's. Per his assigned RN, she stated no behavioral disturbance overnight. Per collateral from the patient's girlfriend Natalie, she stated that they got into an argument and he went to a friend's home. Several hours past, someone called her from this house saying that the patient was using "lots of drugs." She stated, "Next thing I know, he's in the hospital." She stated that he has an issue with substance abuse. Mental Status Exam - Vital signs Last Vital Signs Temp 98 F 05/01/17 08:00 Pulse 97 H 05/01/17 09:51 Resp 26 H 05/01/17 07:11 BP 170/96 05/01/17 09:51 Pulse Ox 99 05/01/17 07:11 - Exam Narrative exam: MSE: Appearance: calm Behavior: eyes closed Speech: low rate and tone Mood: "hurting" Affect: congruent to mood Thought Process: unable to assess Thought Content: no gestures of SI/HI's and AVH's Motor Activity: in restraints Cognition: confused Insight: limited Judgment: limited Assessment and Plan Impression: Today patient is lethargic and mumbling most of his answers when questioned during the assessment. Elevated [place], [place] [address]. CR 10.5. Ammonia 90 (04/29/2017). GI, Nephro , Pulm, and Cardio is following patient. Patient positive for benzos and cocaine. Patient in restraints. Per two assessments, the patient is confused and mentioned wanting to sign out AMA to staff. This patient is acutely ill and a capacity evaluation may need to be considered. Below is the criteria used to determine specific decision making capacity: *We have 4 criteria (based on [employer] in 1988) to assess TASK- specific decision-making capacity: 1) communicating a consistent choice 2) understanding pertinent information (nature of illness) 3) appreciate the circumstances & consequences (treatment options, prognosis with and without treatment, risk/ benefit ratio of treatment) 4) ability to rationally manipulate the information. It is fluid and may change from day to day. Medical: Acute Toxic Metabolic Encephalopathy Recommendation/Plan: If patient need conscious sedation for a procedure less than 10 mins and or for agitation use Thorazine 25 mg IM or a second option, Haldol 5 mg IM. Patlent's CK is elevated, only use the antipsychotics per the recommendation. If the patient need conscious sedation for more the 10 mins consult anesthesia. Ordered Ammonia level. Will assess patient daily. Recommend the following delirium precautions below: 1. Frequently reorient patient and involve him/her in their care (simple explanations of procedures, tests, medications). 2. Lights on and shades open during daytime hours. 3. Try to avoid unnecessary interruptions to sleep during nighttime hours. 4. Obtain glasses, hearing aids from home if patient uses these at baseline. 5. Avoid medications that may exacerbate delirium (especially narcotics, barbiturates, ambien, lunesta, benzos, and medications with excessive anticholinergic properties). 6. Recommend 1:1 sitter for safety. 7. D/C restraints when not indicated.
[2017-05-01] MEDS: APRESOLINE IV PRN ×2 (11:40→16:29)
--- NOTE | 2017-05-01 11:43 | Gastroenterology Progress Note ---
<GUILLERMINA IBARRA - Last Filed: 05/01/17 12:50> Assessment and Plan 1.abnormal liver enzymes 2.Rhabdomyolysis 3.CAIO 4.cocaine abuse with cocane-induced psychotic disorder -abnormal liver enzymes- etiology most likely 2/2 acute liver injury/ishcemic -hepatitis panel negative -INR 1.97-trending down -LFTs improving -continue supportive care -will sign off, please re-consult if needed Subjective Date of service: 05/01/17 Principal diagnosis: elevated LFTs Interval history: No acute distress Objective - Constitutional Vitals: Temp Pulse Resp BP Pulse Ox 98 F 94 H 30 H 192/106 95 05/01/17 08:00 05/01/17 11:40 05/01/17 11:20 05/01/17 11:40 05/01/17 11:20 General appearance: no acute distress, disheveled, other (lethargic) - Respiratory Respiratory: bilateral: CTA - Cardiovascular Rhythm: regular Heart Sounds: Present: S1 & S2 - Gastrointestinal General gastrointestinal: Present: soft, non-distended, normal bowel sounds - Neurologic Neurological: disoriented - Labs CBC & Chem 7: 04/30/17 08:19 05/01/17 07:05 Labs: Laboratory Results - last 24 hr 04/30/17 04/30/17 04/30/17 07:20 12:04 14:54 PT INR Sodium Potassium Chloride Carbon Dioxide Anion Gap BUN Creatinine Estimated GFR BUN/Creatinine Ratio Glucose POC Glucose 86 Lactic Acid 2.20 H* Calcium Total Bilirubin Direct Bilirubin Indirect Bilirubin AST ALT Alkaline Phosphatase Total Creatine Kinase C-Reactive Protein Total Protein Albumin Albumin/Globulin Ratio Urine Creatinine 97.3 H Urine Microalbumin 364.3 H Microalb/Creat Ratio 3744.0 Protein/Creatinin Ratio 5.80 Urine Sodium 81 Urine Total Protein 564 H 04/30/17 04/30/17 04/30/17 18:00 18:20 23:58 PT INR Sodium Potassium Chloride Carbon Dioxide Anion Gap BUN Creatinine Estimated GFR BUN/Creatinine Ratio Glucose POC Glucose 125 H 113 H Lactic Acid Calcium Total Bilirubin Direct Bilirubin Indirect Bilirubin AST ALT Alkaline Phosphatase Total Creatine Kinase C-Reactive Protein 1.60 H Total Protein Albumin Albumin/Globulin Ratio Urine Creatinine Urine Microalbumin Microalb/Creat Ratio Protein/Creatinin Ratio Urine Sodium Urine Total Protein 05/01/17 05/01/17 05/01/17 05:23 07:05 07:05 PT 23.6 H INR 1.97 H Sodium 141 Potassium 3.7 D Chloride 96.6 L Carbon Dioxide 23 D Anion Gap 25 BUN 73 H Creatinine 10.5 H Estimated GFR 7 BUN/Creatinine Ratio 7 Glucose 117 H POC Glucose 107 H Lactic Acid Calcium 6.4 L Total Bilirubin 5.50 H Direct Bilirubin 3.8 H Indirect Bilirubin 1.7 AST 2262 H ALT 1717 H Alkaline Phosphatase 143 H Total Creatine Kinase 11505 H C-Reactive Protein Total Protein 5.3 L Albumin 3.0 L Albumin/Globulin Ratio 1.3 Urine Creatinine Urine Microalbumin Microalb/Creat Ratio Protein/Creatinin Ratio Urine Sodium Urine Total Protein <YENY GARCIA - Last Filed: 05/01/17 14:01> Assessment and Plan - Patient Problems (1) Abnormal liver enzymes Current Visit: Yes Status: Acute Plan to address problem: The patient appears to be steadily improving from an ischemic insult. Will s/o and follow at a distance. Please re consult PRN. (2) Rhabdomyolysis Current Visit: Yes Status: Acute (3) CAIO (acute kidney injury) Current Visit: No Status: Acute (4) Cocaine abuse with cocaine-induced psychotic disorder Current Visit: No Status: Acute Qualifiers: Complication of substance-induced condition: with delusions Qualified Code( s): F14.150 - Cocaine abuse with cocaine-induced psychotic disorder with delusions (5) Encephalopathy acute Current Visit: No Status: Acute (6) Abdominal tenderness Current Visit: Yes Status: Acute Objective - Constitutional Vitals: Temp Pulse Resp BP Pulse Ox 98 F 94 H 30 H 192/106 95 05/01/17 08:00 05/01/17 11:40 05/01/17 11:20 05/01/17 11:40 05/01/17 11:20 - Labs CBC & Chem 7: 04/30/17 08:19 05/01/17 07:05 Labs: Laboratory Results - last 24 hr 04/30/17 04/30/17 04/30/17 14:54 18:00 18:20 PT INR Sodium Potassium Chloride Carbon Dioxide Anion Gap BUN Creatinine Estimated GFR BUN/Creatinine Ratio Glucose POC Glucose 125 H Lactic Acid 2.20 H* Calcium Total Bilirubin Direct Bilirubin Indirect Bilirubin AST ALT Alkaline Phosphatase Total Creatine Kinase C-Reactive Protein 1.60 H Total Protein Albumin Albumin/Globulin Ratio 04/30/17 05/01/17 05/01/17 23:58 05:23 07:05 PT 23.6 H INR 1.97 H Sodium Potassium Chloride Carbon Dioxide Anion Gap BUN Creatinine Estimated GFR BUN/Creatinine Ratio Glucose POC Glucose 113 H 107 H Lactic Acid Calcium Total Bilirubin Direct Bilirubin Indirect Bilirubin AST ALT Alkaline Phosphatase Total Creatine Kinase C-Reactive Protein Total Protein Albumin Albumin/Globulin Ratio 05/01/17 07:05 PT INR Sodium 141 Potassium 3.7 D Chloride 96.6 L Carbon Dioxide 23 D Anion Gap 25 BUN 73 H Creatinine 10.5 H Estimated GFR 7 BUN/Creatinine Ratio 7 Glucose 117 H POC Glucose Lactic Acid Calcium 6.4 L Total Bilirubin 5.50 H Direct Bilirubin 3.8 H Indirect Bilirubin 1.7 AST 2262 H ALT 1717 H Alkaline Phosphatase 143 H Total Creatine Kinase 89020 H C-Reactive Protein Total Protein 5.3 L Albumin 3.0 L Albumin/Globulin Ratio 1.3
--- NOTE | 2017-05-01 14:00 | Progress Note ---
Assessment and Plan Assessment and plan: 26-year-old man with a past medical history of polysubstance abuse which includes cocaine and alcohol and tobacco. The patient was recently just admitted to the hospital, he was found in the street agitated and confused and yelling. He was admitted for toxic metabolic encephalopathy, cocaine abuse, acute kidney injury and metabolic acidosis and non-STEMI. The patient's mentation improved and he signed himself out AGAINST MEDICAL ADVICE. Only to return to the hospital the same day complaining of not feeling well, generalized muscle pains, generalized weakness. He now presents with fulminant liver failure, acute kidney failure, non-STEMI, rhabdomyolysis and metabolic acidosis. Acute Toxic metabolic encephalopathy - UDS is positive for cocaine - Supportive care - CT head within normal limits, image reviewed Fulminant hepatic failure, likely due to ischemic injury from cocaine -check tylenol level, etiology unclear at this time - Elevated transaminitis, with elevated INR -Hepatitis panel negative - GI consult appreciated -Continue IV fluids -HIV serology negative Acute renal failure , likely due to vasomotor nephropathy and myoglobin toxicity and ischemic injury -for emergent HD today, vasc cath has been place -renal US wnl Non traumatic Rhabdomyolysis received IVF, for HD today SIRS - Likely reactive, no evidence of infection Type 2 [place] Case discussed with sound effects person. Unlikely to be from a cardiac etiology Elevated INR/Coagulopathy due to liver failure continue vitamin K daily, check INR daily INR 5.23, improved to 1.97 today -plt count wnl, not cw DIC metabolic acidosis sp bicarb drip, resolved after HD Polysubstance abuse cocaine, etoh and tobacco will provide counseling when mentation improved Acute GI bleed likely cal crespo tear in stomach or esophagus, started with vomiting of clear liquid and then became bloody IV PPI, GI input appreciated Prognosis - Guarded JARROD is his grandmother, but she is unable to come to the hospital, will keep her informed daily over the phone The high probability of a clinically significant, sudden or life threatening deterioration of the [GI, hematologic, renal] system(s) required my full and direct attention, intervention and personal management. The aggregate critical care time was [45] minutes. This time is in addition to time spent performing reported procedures but includes the following: [] Data Review and interpretation [] Patient assessment and monitoring of vital signs [] Documentation [] Medication orders and management History Interval history: Patient remains confused groaning, - -His nurse noticed that he vomited coffee grounds and spit up all over the bed -he has been too confused to communicate effectively Hospitalist Physical - Physical exam Narrative exam: General.: Appears well, no distress, nontoxic HEENT: Moist mucous membranes, extraocular muscles intact, no lymphadenopathy Neck: supple Cardiac: S1-S2 heard Lungs: clear to auscultation bilaterally Abdomen: soft , nontender, nondistended, bowel sounds positive Extremities: no edema clubbing or cyanosis Skin: no rash or lesions Neurologic: Moves all extremities, lethargic, obeys commands, unable to have a detailed conversation, as he keeps falling asleep Psych: Lethargic, obeys commands, judgment is not intact - Constitutional Vitals: Temp Pulse Resp BP Pulse Ox 98 F 94 H 30 H 192/106 95 05/01/17 08:00 05/01/17 11:40 05/01/17 11:20 05/01/17 11:40 05/01/17 11:20 Results - Labs CBC & Chem 7: 04/30/17 08:19 05/01/17 07:05 Labs: Laboratory Last Values WBC 12.8 K/mm3 (4.5-11.0) H 04/30/17 08:19 RBC 4.53 M/mm3 (3.65-5.03) 04/30/17 08:19 Hgb 12.4 gm/dl (11.8-15.2) 04/30/17 08:19 Hct 38.0 % (35.5-45.6) 04/30/17 08:19 MCV 84 fl (84-94) 04/30/17 08:19 MCH 27 pg (28-32) L 04/30/17 08:19 MCHC 33 % (32-34) 04/30/17 08:19 RDW 14.7 % (13.2-15.2) 04/30/17 08:19 Plt Count 153 K/mm3 (140-440) 04/30/17 08:19 Add Manual Diff Complete 04/30/17 08:19 Total Counted 100 04/30/17 08:19 Seg Neutrophils % Desk Director 04/29/17 06:55 Seg Neuts % (Manual) 83.0 % (40.0-70.0) H 04/30/17 08:19 Band Neutrophils % 6.0 % 04/30/17 08:19 Lymphocytes % (Manual) 9.0 % (13.4-35.0) L 04/30/17 08:19 Reactive Lymphs % (Man) 0 % 04/30/17 08:19 Monocytes % (Manual) 2.0 % (0.0-7.3) 04/30/17 08:19 Eosinophils % (Manual) 0 % (0.0-4.3) 04/29/17 06:55 Basophils % (Manual) 0 % (0.0-1.8) 04/29/17 06:55 Metamyelocytes % 0 % 04/30/17 08:19 Myelocytes % 0 % 04/30/17 08:19 Promyelocytes % 0 % 04/30/17 08:19 Blast Cells % 0 % 04/30/17 08:19 Nucleated RBC % Not Reportable 04/30/17 08:19 Seg Neutrophils # Man 10.6 K/mm3 (1.8-7.7) H 04/30/17 08:19 Band Neutrophils # 0.8 K/mm3 04/30/17 08:19 Lymphocytes # (Manual) 1.2 K/mm3 (1.2-5.4) 04/30/17 08:19 Abs React Lymphs (Man) 0.0 K/mm3 04/30/17 08:19 Monocytes # (Manual) 0.3 K/mm3 (0.0-0.8) 04/30/17 08:19 Eosinophils # (Manual) 0.0 K/mm3 (0.0-0.4) 04/30/17 08:19 Basophils # (Manual) 0.0 K/mm3 (0.0-0.1) 04/30/17 08:19 Metamyelocytes # 0.0 K/mm3 04/30/17 08:19 Myelocytes # 0.0 K/mm3 04/30/17 08:19 Promyelocytes # 0.0 K/mm3 04/30/17 08:19 Blast Cells # 0.0 K/mm3 04/30/17 08:19 WBC Morphology Not Reportable 04/30/17 08:19 Hypersegmented Neuts Not Reportable 04/30/17 08:19 Hyposegmented Neuts Not Reportable 04/30/17 08:19 Hypogranular Neuts Not Reportable 04/30/17 08:19 Smudge Cells Not Reportable 04/30/17 08:19 Toxic Granulation Not Reportable 04/30/17 08:19 Toxic Vacuolation Not Reportable 04/30/17 08:19 Dohle Bodies Not Reportable 04/30/17 08:19 Pelger-Huet Anomaly Not Reportable 04/30/17 08:19 Lizette Rods Not Reportable 04/30/17 08:19 Platelet Estimate Not Reportable 04/30/17 08:19 Clumped Platelets Not Reportable 04/30/17 08:19 Plt Clumps, EDTA Not Reportable 04/30/17 08:19 Large Platelets Not Reportable 04/30/17 08:19 Giant Platelets Not Reportable 04/30/17 08:19 Platelet Satelliting Not Reportable 04/30/17 08:19 Plt Morphology Comment Not Reportable 04/30/17 08:19 RBC Morphology Not Reportable 04/30/17 08:19 Dimorphic RBCs Not Reportable 04/30/17 08:19 Polychromasia Rare 04/30/17 08:19 Hypochromasia Not Reportable 04/30/17 08:19 Poikilocytosis Few 04/30/17 08:19 Anisocytosis 1+ 04/30/17 08:19 Microcytosis Not Reportable 04/30/17 08:19 Macrocytosis Not Reportable 04/30/17 08:19 Spherocytes Not Reportable 04/30/17 08:19 Pappenheimer Bodies Not Reportable 04/30/17 08:19 Sickle Cells Not Reportable 04/30/17 08:19 Target Cells Not Reportable 04/30/17 08:19 Tear Drop Cells Not Reportable 04/30/17 08:19 Ovalocytes Not Reportable 04/30/17 08:19 Helmet Cells Not Reportable 04/30/17 08:19 Conner-Judson Bodies Not Reportable 04/30/17 08:19 [place] Rings Not Reportable 04/30/17 08:19 Corona Cells Not Reportable 04/30/17 08:19 Bite Cells Not Reportable 04/30/17 08:19 Crenated Cell Not Reportable 04/30/17 08:19 Elliptocytes Not Reportable 04/30/17 08:19 Acanthocytes (Spur) Not Reportable 04/30/17 08:19 Rouleaux Not Reportable 04/30/17 08:19 Hemoglobin C Crystals Not Reportable 04/30/17 08:19 Schistocytes Not Reportable 04/30/17 08:19 Malaria parasites Not Reportable 04/30/17 08:19 Noel Bodies Not Reportable 04/30/17 08:19 Hem Pathologist Commnt No 04/30/17 08:19 PT 23.6 Sec. (12.2-14.9) H 05/01/17 07:05 INR 1.97 (0.87-1.13) H 05/01/17 07:05 APTT 52.6 Sec. (24.2-36.6) H 04/28/17 21:55 Sodium 141 mmol/L (137-145) 05/01/17 07:05 Potassium 3.7 mmol/L (3.6-5.0) D 05/01/17 07:05 Chloride 96.6 mmol/L (98-107) L 05/01/17 07:05 Carbon Dioxide 23 mmol/L (22-30) D 05/01/17 07:05 Anion Gap 25 mmol/L 05/01/17 07:05 BUN 73 mg/dL (9-20) H 05/01/17 07:05 Creatinine 10.5 mg/dL (0.8-1.5) H 05/01/17 07:05 Estimated GFR 7 ml/min 05/01/17 07:05 BUN/Creatinine Ratio 7 % 05/01/17 07:05 Glucose 117 mg/dL (75-100) H 05/01/17 07:05 POC Glucose 107 (70-105) H 05/01/17 05:23 Lactic Acid 2.20 mmol/L (0.7-2.0) H* 04/30/17 14:54 Calcium 6.4 mg/dL (8.4-10.2) L 05/01/17 07:05 Total Bilirubin 5.50 mg/dL (0.1-1.2) H 05/01/17 07:05 Direct Bilirubin 3.8 mg/dL (0-0.2) H 05/01/17 07:05 Indirect Bilirubin 1.7 mg/dL 05/01/17 07:05 AST 2262 units/L (5-40) H 05/01/17 07:05 ALT 1717 units/L (7-56) H 05/01/17 07:05 Alkaline Phosphatase 143 units/L (35-129) H 05/01/17 07:05 Ammonia 90.0 umol/L (25-60) H 04/29/17 06:55 Total Creatine Kinase 88134 units/L (55-170) H 05/01/17 07:05 CK-MB (CK-2) 537.2 ng/mL (0.0-4.0) H 04/29/17 10:38 CK-MB (CK-2) Rel Index 0.4 (0-4) 04/29/17 10:38 Troponin T 0.396 ng/mL (0.00-0.029) H* D 04/29/17 10:38 C-Reactive Protein 1.60 mg/dL (0.00-1.30) H 04/30/17 18:00 Total Protein 5.3 g/dL (6.3-8.2) L 05/01/17 07:05 Albumin 3.0 g/dL (3.9-5) L 05/01/17 07:05 Albumin/Globulin Ratio 1.3 % 05/01/17 07:05 Urine Creatinine 97.3 mg/dL (0.1-20.0) H 04/30/17 07:20 Urine Microalbumin 364.3 mg/dL (0.1-34.0) H 04/30/17 07:20 Microalb/Creat Ratio 3744.0 ug/mg 04/30/17 07:20 Protein/Creatinin Ratio 5.80 04/30/17 07:20 Urine Sodium 81 mmol/L 04/30/17 07:20 Urine Total Protein 564 mg/dL (5-11.8) H 04/30/17 07:20 Urine Opiates Screen Presumptive negative 04/29/17 02:43 Urine Methadone Screen Presumptive negative 04/29/17 02:43 Acetaminophen < 15.0 ug/mL (10.0-30.0) 04/29/17 10:38 Ur Barbiturates Screen Presumptive negative 04/29/17 02:43 Ur Phencyclidine Scrn Presumptive negative 04/29/17 02:43 Ur Amphetamines Screen Presumptive negative 04/29/17 02:43 U Benzodiazepines Scrn Presumptive positive 04/29/17 02:43 Urine Cocaine Screen Presumptive positive 04/29/17 02:43 U Marijuana (THC) Screen Presumptive negative 04/29/17 02:43 Drugs of Abuse Note Disclamer 04/29/17 02:43 Hepatitis A IgM Ab Non-reactive (NonReactive) 04/28/17 19:13 Hep Bs Antigen Non-reactive (Negative) 04/28/17 19:13 Hep B Core IgM Ab Non-reactive (NonReactive) 04/28/17 19:13 Hepatitis C Antibody Non-reactive (NonReactive) 04/28/17 19:13 HIV 1&2 Antibody Rapid Non react (Non React) 04/30/17 08:19 HIV P24 Antigen Non react (Non React) 04/30/17 08:19
[2017-05-01] MEDS: D5/0.45NS 1,000 ML IV SCH (14:36)
--- NOTE | 2017-05-01 15:08 | Progress Note ---
Assessment and Plan Echo reviewed with [facility]. Optimize anti-hypertensive regimen. The patient has been seen in conjunction with Dr. Michael who agrees with the assessment and plan of care. - Patient Problems (1) Non-ST elevation myocardial infarction (NSTEMI), type 2 Current Visit: Yes Status: Acute (2) Acute renal failure Current Visit: Yes Status: Acute (3) Rhabdomyolysis Current Visit: Yes Status: Acute (4) Liver failure Current Visit: Yes Status: Acute (5) Coagulopathy Current Visit: Yes Status: Acute (6) Encephalopathy Current Visit: Yes Status: Acute (7) Polysubstance abuse Current Visit: Yes Status: Acute (8) Sepsis Current Visit: Yes Status: Acute Subjective Date of service: 05/01/17 Principal diagnosis: severe renal failure Interval history: pt resting in bed, remains confused. In SR on tele. Objective Last Vital Signs Temp 98.1 F 05/01/17 12:00 Pulse 97 H 05/01/17 14:10 Resp 23 05/01/17 14:10 BP 179/97 05/01/17 14:10 Pulse Ox 96 05/01/17 14:10 - Physical Examination General: Other (confused) HEENT: Positive: PERRL, Normocephaly, Mucus Membranes Moist Neck: Positive: neck supple Cardiac: Positive: Reg Rate and Rhythm, S1/S2 Lungs: Positive: clear to auscultation Neuro: Positive: Other (confused) Abdomen: Positive: Active Bowel Sounds Skin: Positive: Clear. Negative: Rash, Wound Musculoskeletal: No Fluid Collection, No Pain, Normal Range of Motion - Labs and Meds Cardiac Enzymes 05/01/17 Range/Units 07:05 AST 2262 H (5-40) units/L Coagulation 05/01/17 Range/Units 07:05 PT 23.6 H (12.2-14.9) Sec. INR 1.97 H (0.87-1.13) Comprehensive Metabolic Panel 05/01/17 Range/Units 07:05 Sodium 141 (137-145) mmol/L Potassium 3.7 D (3.6-5.0) mmol/L Chloride 96.6 L (98-107) mmol/L Carbon Dioxide 23 D (22-30) mmol/L BUN 73 H (9-20) mg/dL Creatinine 10.5 H (0.8-1.5) mg/dL Glucose 117 H (75-100) mg/dL Calcium 6.4 L (8.4-10.2) mg/dL Direct Bilirubin 3.8 H (0-0.2) mg/dL Indirect Bilirubin 1.7 mg/dL AST 2262 H (5-40) units/L ALT 1717 H (7-56) units/L Alkaline Phosphatase 143 H (35-129) units/L Total Protein 5.3 L (6.3-8.2) g/dL Albumin 3.0 L (3.9-5) g/dL - Imaging and Cardiology EKG: report reviewed, image reviewed - Telemetry EKG Rhythm: Sinus Rhythm
[2017-05-01] MEDS ORDERED: NACL 0.9% 1000 ML 2,000 ML ONE (16:28)
[2017-05-01] MEDS ORDERED: LOPRESSOR PO SCH (18:00)
--- NOTE | 2017-05-01 18:54 | Progress Note ---
Assessment and Plan 26-year-old man with a past medical history of polysubstance abuse which includes cocaine and alcohol and tobacco. The patient was recently just admitted to the hospital, he was found in the street agitated and confused and yelling. He was admitted for toxic metabolic encephalopathy, cocaine abuse, acute kidney injury and metabolic acidosis and non-STEMI. The patient's mentation improved and he signed himself out AGAINST MEDICAL ADVICE. Only to return to the hospital the same day complaining of not feeling well, generalized muscle pains, generalized weakness. He now presents with fulminant liver failure, acute kidney failure, non-STEMI, rhabdomyolysis and metabolic acidosis. Acute Toxic metabolic encephalopathy Fulminant hepatic failure, likely due to ischemic injury from cocaine Acute renal failure , likely due to vasomotor nephropathy and myoglobin toxicity and ischemic injury Non traumatic Rhabdomyolysis SIRS Type 2 [place] Elevated INR/Coagulopathy due to liver failure Metabolic acidosis Polysubstance abuse Acute GI bleed -Continue all supportive care -Blood pressure control -Supplemental oxygen for O2 sats>90% -If oK with GI service initiate trophic feeds -Prognosis--guarded Subjective Date of service: 05/01/17 Principal diagnosis: severe renal failure Interval history: Seen and examined. Vitals, labs, medications, cahrt reviewed. Discussed in interdisciplinary ICU rounds. Currently getting HD Objective - Exam Narrative Exam: General.: Appears well, no distress, nontoxic HEENT: Moist mucous membranes, extraocular muscles intact, no lymphadenopathy Neck: supple Cardiac: S1-S2 heard Lungs: clear to auscultation bilaterally Abdomen: soft , nontender, nondistended, bowel sounds positive Extremities: no edema clubbing or cyanosis Skin: no rash or lesions Neurologic: Moves all extremities, lethargic, obeys commands, unable to have a detailed conversation, as he keeps falling asleep Psych: Lethargic, obeys commands, judgment is not intact Vital Signs - 12hr 05/01/17 05/01/17 05/01/17 07:00 07:10 07:11 Temperature Pulse Rate 105 H 105 H Pulse Rate [ From Monitor] Respiratory 27 H 32 H 26 H Rate Blood Pressure 153/90 153/90 O2 Sat by Pulse 95 96 99 Oximetry O2 Sat by Pulse Oximetry [ Anterior Bilateral] 05/01/17 05/01/17 05/01/17 07:20 07:30 07:40 Temperature Pulse Rate 104 H 104 H 104 H Pulse Rate [ 104 H From Monitor] Respiratory 36 H 40 H 23 Rate Blood Pressure 153/90 158/96 158/96 O2 Sat by Pulse 95 96 97 Oximetry O2 Sat by Pulse Oximetry [ Anterior Bilateral] 05/01/17 05/01/17 05/01/17 07:50 08:00 08:10 Temperature 98 F Pulse Rate 105 H 102 H Pulse Rate [ From Monitor] Respiratory 40 H 28 H Rate Blood Pressure 158/96 175/97 175/97 O2 Sat by Pulse 96 96 96 Oximetry O2 Sat by Pulse Oximetry [ Anterior Bilateral] 05/01/17 05/01/17 05/01/17 08:20 08:30 09:00 Temperature Pulse Rate Pulse Rate [ From Monitor] Respiratory Rate Blood Pressure 175/97 166/91 179/95 O2 Sat by Pulse 96 58 L Oximetry O2 Sat by Pulse Oximetry [ Anterior Bilateral] 05/01/17 05/01/17 05/01/17 09:30 09:44 09:50 Temperature Pulse Rate 100 H 97 H Pulse Rate [ From Monitor] Respiratory 16 32 H Rate Blood Pressure 170/96 170/96 170/96 O2 Sat by Pulse Oximetry O2 Sat by Pulse Oximetry [ Anterior Bilateral] 05/01/17 05/01/17 05/01/17 09:51 10:00 10:10 Temperature Pulse Rate 97 H 102 H 103 H Pulse Rate [ From Monitor] Respiratory 31 H 28 H Rate Blood Pressure 170/96 166/91 170/96 O2 Sat by Pulse 95 97 Oximetry O2 Sat by Pulse Oximetry [ Anterior Bilateral] 05/01/17 05/01/17 05/01/17 10:20 10:30 10:40 Temperature Pulse Rate 102 H 96 H 95 H Pulse Rate [ From Monitor] Respiratory 34 H 34 H 24 Rate Blood Pressure 170/96 192/106 179/137 O2 Sat by Pulse 96 95 95 Oximetry O2 Sat by Pulse Oximetry [ Anterior Bilateral] 05/01/17 05/01/17 05/01/17 10:50 11:00 11:10 Temperature Pulse Rate 96 H 100 H 92 H Pulse Rate [ From Monitor] Respiratory 25 H 35 H 30 H Rate Blood Pressure 179/137 177/92 192/106 O2 Sat by Pulse 94 95 94 Oximetry O2 Sat by Pulse Oximetry [ Anterior Bilateral] 01/05/01/17 05/01/17 11:20 11:30 11:40 Temperature Pulse Rate 100 H 93 H 94 H Pulse Rate [ 96 H From Monitor] Respiratory 30 H 31 H 29 H Rate Blood Pressure 192/106 201/101 177/92 O2 Sat by Pulse 95 96 97 Oximetry O2 Sat by Pulse Oximetry [ Anterior Bilateral] 05/01/17 05/01/17 05/01/17 11:50 12:00 12:10 Temperature 98.1 F Pulse Rate 93 H 97 H 96 H Pulse Rate [ From Monitor] Respiratory 24 27 H 21 Rate Blood Pressure 177/92 193/103 193/103 O2 Sat by Pulse 97 97 96 Oximetry O2 Sat by Pulse Oximetry [ Anterior Bilateral] 05/01/17 05/01/17 05/01/17 12:20 12:30 12:40 Temperature Pulse Rate 104 H 98 H 99 H Pulse Rate [ From Monitor] Respiratory 18 24 28 H Rate Blood Pressure 193/103 186/97 186/97 O2 Sat by Pulse 97 96 97 Oximetry O2 Sat by Pulse Oximetry [ Anterior Bilateral] 05/01/17 05/01/17 05/01/17 12:50 13:00 13:10 Temperature Pulse Rate 101 H 105 H 103 H Pulse Rate [ From Monitor] Respiratory 26 H 37 H 29 H Rate Blood Pressure 186/97 181/96 181/96 O2 Sat by Pulse 97 96 95 Oximetry O2 Sat by Pulse Oximetry [ Anterior Bilateral] 05/01/17 05/01/17 05/01/17 13:20 13:30 13:40 Temperature Pulse Rate 105 H 98 H 105 H Pulse Rate [ From Monitor] Respiratory 37 H 25 H 19 Rate Blood Pressure 181/96 191/93 181/96 O2 Sat by Pulse 96 96 97 Oximetry O2 Sat by Pulse Oximetry [ Anterior Bilateral] 05/01/17 05/01/17 05/01/17 13:50 14:00 14:10 Temperature Pulse Rate 100 H 96 H 97 H Pulse Rate [ From Monitor] Respiratory 26 H 22 23 Rate Blood Pressure 181/96 179/97 179/97 O2 Sat by Pulse 96 96 96 Oximetry O2 Sat by Pulse Oximetry [ Anterior Bilateral] 05/01/17 05/01/17 05/01/17 14:20 14:30 14:40 Temperature Pulse Rate 98 H 99 H 97 H Pulse Rate [ From Monitor] Respiratory 23 25 H 24 Rate Blood Pressure 179/97 183/98 183/98 O2 Sat by Pulse 96 97 96 Oximetry O2 Sat by Pulse Oximetry [ Anterior Bilateral] 05/01/17 05/01/17 05/01/17 14:50 15:00 15:10 Temperature 97.7 F Pulse Rate 96 H 103 H 101 H Pulse Rate [ From Monitor] Respiratory 22 22 27 H Rate Blood Pressure 183/98 180/85 185/89 O2 Sat by Pulse 96 97 97 Oximetry O2 Sat by Pulse 97 Oximetry [ Anterior Bilateral] 05/01/17 05/01/17 05/01/17 15:15 15:20 15:30 Temperature Pulse Rate 97 H 95 H 108 H Pulse Rate [ From Monitor] Respiratory 25 H 17 Rate Blood Pressure 197/98 197/98 189/119 O2 Sat by Pulse 97 96 Oximetry O2 Sat by Pulse Oximetry [ Anterior Bilateral] 05/01/17 05/01/17 05/01/17 15:45 16:00 16:15 Temperature 98 F Pulse Rate 96 H 88 89 Pulse Rate [ From Monitor] Respiratory Rate Blood Pressure 186/94 198/102 210/103 O2 Sat by Pulse Oximetry O2 Sat by Pulse Oximetry [ Anterior Bilateral] 05/01/17 05/01/17 05/01/17 16:29 16:30 16:45 Temperature Pulse Rate 80 95 H 101 H Pulse Rate [ From Monitor] Respiratory Rate Blood Pressure 201/103 201/105 173/93 O2 Sat by Pulse Oximetry O2 Sat by Pulse Oximetry [ Anterior Bilateral] 05/01/17 05/01/17 05/01/17 17:00 17:15 17:30 Temperature Pulse Rate 105 H 105 H 150 H Pulse Rate [ From Monitor] Respiratory Rate Blood Pressure 174/89 168/96 183/90 O2 Sat by Pulse Oximetry O2 Sat by Pulse Oximetry [ Anterior Bilateral] 05/01/17 05/01/17 17:45 17:55 Temperature 99.2 F Pulse Rate 103 H 104 H Pulse Rate [ From Monitor] Respiratory 20 Rate Blood Pressure 160/92 184/85 O2 Sat by Pulse Oximetry O2 Sat by Pulse Oximetry [ Anterior Bilateral] CBC and BMP: 04/30/17 08:19 05/01/17 07:05 ABG, PT/INR, D-dimer: PT/INR, D-dimer PT 23.6 Sec. (12.2-14.9) H 05/01/17 07:05 INR 1.97 (0.87-1.13) H 05/01/17 07:05 Abnormal lab findings: Abnormal Labs 04/28/17 04/28/17 04/28/17 18:25 19:13 21:55 WBC 20.3 H RBC 5.29 H Hct 47.0 H D MCH Seg Neuts % (Manual) 91.0 H Lymphocytes % (Manual) 6.0 L Seg Neutrophils # Man 18.5 H Lymphocytes # (Manual) PT 50.8 H INR 5.15 H* APTT 52.6 H Chloride Carbon Dioxide 11 L BUN 45 H Creatinine 5.8 H Glucose 67 L POC Glucose Lactic Acid Calcium 7.5 L Total Bilirubin 1.60 H Direct Bilirubin AST 2868 H ALT 719 H Alkaline Phosphatase Ammonia Total Creatine Kinase 821428 H CK-MB (CK-2) Troponin T 0.577 H* C-Reactive Protein Total Protein Albumin 3.7 L Urine Creatinine Urine Microalbumin Urine Total Protein 04/29/17 04/29/17 04/29/17 06:55 06:55 06:55 WBC 21.7 H RBC Hct MCH Seg Neuts % (Manual) 99.0 H Lymphocytes % (Manual) 0 L Seg Neutrophils # Man 21.5 H Lymphocytes # (Manual) 0.0 L PT 51.5 H INR 5.23 H* APTT Chloride Carbon Dioxide 11 L BUN 55 H Creatinine 7.6 H Glucose 43 L POC Glucose Lactic Acid Calcium 6.3 L D Total Bilirubin Direct Bilirubin AST ALT Alkaline Phosphatase Ammonia Total Creatine Kinase CK-MB (CK-2) Troponin T C-Reactive Protein Total Protein Albumin Urine Creatinine Urine Microalbumin Urine Total Protein 04/29/17 04/29/17 04/29/17 06:55 10:38 17:32 WBC RBC Hct MCH Seg Neuts % (Manual) Lymphocytes % (Manual) Seg Neutrophils # Man Lymphocytes # (Manual) PT INR APTT Chloride Carbon Dioxide BUN Creatinine Glucose POC Glucose 55 L Lactic Acid Calcium Total Bilirubin Direct Bilirubin AST ALT Alkaline Phosphatase Ammonia 90.0 H Total Creatine Kinase 447656 H CK-MB (CK-2) 537.2 H Troponin T 0.396 H* D C-Reactive Protein Total Protein Albumin Urine Creatinine Urine Microalbumin Urine Total Protein 04/30/17 04/30/17 04/30/17 07:20 08:19 08:19 WBC 12.8 H RBC Hct MCH 27 L Seg Neuts % (Manual) 83.0 H Lymphocytes % (Manual) 9.0 L Seg Neutrophils # Man 10.6 H Lymphocytes # (Manual) PT 41.1 H INR 3.95 H APTT Chloride Carbon Dioxide BUN Creatinine Glucose POC Glucose Lactic Acid Calcium Total Bilirubin Direct Bilirubin AST ALT Alkaline Phosphatase Ammonia Total Creatine Kinase CK-MB (CK-2) Troponin T C-Reactive Protein Total Protein Albumin Urine Creatinine 97.3 H Urine Microalbumin 364.3 H Urine Total Protein 564 H 04/30/17 04/30/17 04/30/17 08:19 14:54 18:00 WBC RBC Hct MCH Seg Neuts % (Manual) Lymphocytes % (Manual) Seg Neutrophils # Man Lymphocytes # (Manual) PT INR APTT Chloride Carbon Dioxide 14 L BUN 84 H Creatinine 12.1 H D Glucose POC Glucose Lactic Acid 2.20 H* Calcium 6.1 L Total Bilirubin 3.10 H Direct Bilirubin 2.2 H AST 4809 H ALT 2220 H Alkaline Phosphatase 138 H Ammonia Total Creatine Kinase 464910 H CK-MB (CK-2) Troponin T C-Reactive Protein 1.60 H Total Protein 5.2 L D Albumin 2.9 L Urine Creatinine Urine Microalbumin Urine Total Protein 04/30/17 04/30/17 05/01/17 18:20 23:58 05:23 WBC RBC Hct MCH Seg Neuts % (Manual) Lymphocytes % (Manual) Seg Neutrophils # Man Lymphocytes # (Manual) PT INR APTT Chloride Carbon Dioxide BUN Creatinine Glucose POC Glucose 125 H 113 H 107 H Lactic Acid Calcium Total Bilirubin Direct Bilirubin AST ALT Alkaline Phosphatase Ammonia Total Creatine Kinase CK-MB (CK-2) Troponin T C-Reactive Protein Total Protein Albumin Urine Creatinine Urine Microalbumin Urine Total Protein 05/01/17 05/01/17 07:05 07:05 WBC RBC Hct MCH Seg Neuts % (Manual) Lymphocytes % (Manual) Seg Neutrophils # Man Lymphocytes # (Manual) PT 23.6 H INR 1.97 H APTT Chloride 96.6 L Carbon Dioxide BUN 73 H Creatinine 10.5 H Glucose 117 H POC Glucose Lactic Acid Calcium 6.4 L Total Bilirubin 5.50 H Direct Bilirubin 3.8 H AST 2262 H ALT 1717 H Alkaline Phosphatase 143 H Ammonia Total Creatine Kinase 70140 H CK-MB (CK-2) Troponin T C-Reactive Protein Total Protein 5.3 L Albumin 3.0 L Urine Creatinine Urine Microalbumin Urine Total Protein Chest x-ray: image reviewed Allied health notes reviewed: RT Critical care time in (mins) excluding proc time.: 45 Critical care attestation.: If time is entered above; I have spent that time in minutes in the direct care of this critically ill patient, excluding procedure time.
[2017-05-01] MEDS: NORVASC PO SCH (19:41)
[2017-05-01] MEDS: APRESOLINE IV SCH (21:41)
[2017-05-01] MEDS ORDERED: APRESOLINE PO SCH (22:00)
[2017-05-02] MEDS: LOPRESSOR PO SCH ×5 (00:05→23:55)
[2017-05-02] MEDS: D5/0.45NS 1,000 ML IV SCH ×2 (00:16→15:51)
[2017-05-02] MEDS: APRESOLINE IV SCH ×2 (03:41→12:16)
[2017-05-02 06:47] LABS: Albumin 2.5 g/dL (3.9-5); Bilirubin,Direct 5.1 mg/dL (0-0.2); Calcium 6.9 mg/dL (8.4-10.2)
[2017-05-02 06:54] LABS: Hematocrit 37.8 % (35.5-45.6); Hemoglobin 12.6 gm/dl (11.8-15.2)
[2017-05-02 06:59] LABS: INR 1.45 (0.87-1.13)
[2017-05-02] MEDS ORDERED: NACL 0.9% 100 ML IV PRN (09:24)
--- NOTE | 2017-05-02 09:40 | Progress Note ---
Assessment and Plan Assessment and plan: 26-year-old man with h/o polysubstance abuse [cocaine and alcohol and tobacco]. The patient was recently just admitted to the hospital, he was found in the street agitated and confused and yelling. He was admitted for toxic metabolic encephalopathy, cocaine abuse, acute kidney injury and metabolic acidosis and non-STEMI. The patient's mentation improved and he signed himself out AGAINST MEDICAL ADVICE. Only to return to the hospital the same day complaining of not feeling well, generalized muscle pains, generalized weakness. He now presents with fulminant liver failure, acute kidney failure, non-STEMI, rhabdomyolysis and metabolic acidosis. Acute metabolic encephalopathy: - Utox is positive for cocaine - Supportive care - CT head within normal limits, image reviewed Acute hepatic failure, drug induced - Elevated transaminitis, follow transaminases and INR -Hepatitis panel negative - GI consult appreciated -Continue IV fluids -HIV serology negative Acute kidney injury -Patient received emergent HD, vasc cath has been place -renal US wnl, continue HD per schedule Nontraumatic rhabdomyolysis , probably secondary to polysubstance abuse -Continue IVF, closely monitor input output SIRS - Likely reactive, no evidence of infection Coagulopathy secondary to acute liver failure --continue vitamin K daily, check INR daily INR 5.23, improved to 1.45 today Acute metabolic acidosis -sp bicarb drip, resolved, continue hemodialysis, Nephrology following Polysubstance abuse cocaine, etoh and tobacco --Counseling done strongly advised to quit recreational drug use , smoking cessation counseling done Acute upper GI bleeding - likely cal crespo tear/acute gastritis, Continue Protonix, GI following Prognosis - Guarded Possible transfer out of ICU to telemetry, if stable after hemodialysis Critical care time 32 minutes The high probability of a clinically significant, sudden or life threatening deterioration of the [GI, hematologic, renal] system(s) required my full and direct attention, intervention and personal management. The aggregate critical care time was [32] minutes. This time is in addition to time spent performing reported procedures but includes the following: [x] Data Review and interpretation [x] Patient assessment and monitoring of vital signs [x] Documentation [x] Medication orders and management History Interval history: Patient seen and evaluated in ICU this morning, medical records reviewed No new events reported by nursing staff Patient is receiving hemodialysis at the bedside. Not in acute distress Vital signs reviewed Hospitalist Physical - Constitutional Vitals: Temp Pulse Resp BP Pulse Ox 98.8 F 88 27 H 151/94 95 05/02/17 04:00 05/02/17 06:00 05/02/17 06:00 05/02/17 06:00 05/02/17 06:00 General appearance: Present: no acute distress, cachectic - EENT Eyes: Present: PERRL, EOM intact - Neck Neck: Present: supple, normal ROM - Respiratory Respiratory effort: normal Respiratory: bilateral: diminished, negative: rales, rhonchi, wheezing - Cardiovascular Rhythm: regular Heart Sounds: Present: S1 & S2 - Extremities Extremities: no ischemia, pulses intact - Abdominal General gastrointestinal: soft, non-tender, non-distended - Integumentary Integumentary: Present: clear, warm - Psychiatric Psychiatric: other (minimally communicative) - Neurologic Neurologic: moves all extremities Results - Labs CBC & Chem 7: 05/02/17 05:25 05/02/17 05:25 Labs: Laboratory Last Values WBC 12.8 K/mm3 (4.5-11.0) H 04/30/17 08:19 RBC 4.53 M/mm3 (3.65-5.03) 04/30/17 08:19 Hgb 12.6 gm/dl (11.8-15.2) 05/02/17 05:25 Hct 37.8 % (35.5-45.6) 05/02/17 05:25 MCV 84 fl (84-94) 04/30/17 08:19 MCH 27 pg (28-32) L 04/30/17 08:19 MCHC 33 % (32-34) 04/30/17 08:19 RDW 14.7 % (13.2-15.2) 04/30/17 08:19 Plt Count 53 K/mm3 (140-440) L 05/02/17 05:25 Add Manual Diff Complete 04/30/17 08:19 Total Counted 100 04/30/17 08:19 Seg Neutrophils % Service Person 04/29/17 06:55 Seg Neuts % (Manual) 83.0 % (40.0-70.0) H 04/30/17 08:19 Band Neutrophils % 6.0 % 04/30/17 08:19 Lymphocytes % (Manual) 9.0 % (13.4-35.0) L 04/30/17 08:19 Reactive Lymphs % (Man) 0 % 04/30/17 08:19 Monocytes % (Manual) 2.0 % (0.0-7.3) 04/30/17 08:19 Eosinophils % (Manual) 0 % (0.0-4.3) 04/29/17 06:55 Basophils % (Manual) 0 % (0.0-1.8) 04/29/17 06:55 Metamyelocytes % 0 % 04/30/17 08:19 Myelocytes % 0 % 04/30/17 08:19 Promyelocytes % 0 % 04/30/17 08:19 Blast Cells % 0 % 04/30/17 08:19 Nucleated RBC % Not Reportable 04/30/17 08:19 Seg Neutrophils # Man 10.6 K/mm3 (1.8-7.7) H 04/30/17 08:19 Band Neutrophils # 0.8 K/mm3 04/30/17 08:19 Lymphocytes # (Manual) 1.2 K/mm3 (1.2-5.4) 04/30/17 08:19 Abs React Lymphs (Man) 0.0 K/mm3 04/30/17 08:19 Monocytes # (Manual) 0.3 K/mm3 (0.0-0.8) 04/30/17 08:19 Eosinophils # (Manual) 0.0 K/mm3 (0.0-0.4) 04/30/17 08:19 Basophils # (Manual) 0.0 K/mm3 (0.0-0.1) 04/30/17 08:19 Metamyelocytes # 0.0 K/mm3 04/30/17 08:19 Myelocytes # 0.0 K/mm3 04/30/17 08:19 Promyelocytes # 0.0 K/mm3 04/30/17 08:19 Blast Cells # 0.0 K/mm3 04/30/17 08:19 WBC Morphology Not Reportable 04/30/17 08:19 Hypersegmented Neuts Not Reportable 04/30/17 08:19 Hyposegmented Neuts Not Reportable 04/30/17 08:19 Hypogranular Neuts Not Reportable 04/30/17 08:19 Smudge Cells Not Reportable 04/30/17 08:19 Toxic Granulation Not Reportable 04/30/17 08:19 Toxic Vacuolation Not Reportable 04/30/17 08:19 Dohle Bodies Not Reportable 04/30/17 08:19 Pelger-Huet Anomaly Not Reportable 04/30/17 08:19 Lizette Rods Not Reportable 04/30/17 08:19 Platelet Estimate Not Reportable 04/30/17 08:19 Clumped Platelets Not Reportable 04/30/17 08:19 Plt Clumps, EDTA Not Reportable 04/30/17 08:19 Large Platelets Not Reportable 04/30/17 08:19 Giant Platelets Not Reportable 04/30/17 08:19 Platelet Satelliting Not Reportable 04/30/17 08:19 Plt Morphology Comment Not Reportable 04/30/17 08:19 RBC Morphology Not Reportable 04/30/17 08:19 Dimorphic RBCs Not Reportable 04/30/17 08:19 Polychromasia Rare 04/30/17 08:19 Hypochromasia Not Reportable 04/30/17 08:19 Poikilocytosis Few 04/30/17 08:19 Anisocytosis 1+ 04/30/17 08:19 Microcytosis Not Reportable 04/30/17 08:19 Macrocytosis Not Reportable 04/30/17 08:19 Spherocytes Not Reportable 04/30/17 08:19 Pappenheimer Bodies Not Reportable 04/30/17 08:19 Sickle Cells Not Reportable 04/30/17 08:19 Target Cells Not Reportable 04/30/17 08:19 Tear Drop Cells Not Reportable 04/30/17 08:19 Ovalocytes Not Reportable 04/30/17 08:19 Helmet Cells Not Reportable 04/30/17 08:19 Conner-Hazel Bodies Not Reportable 04/30/17 08:19 [place] Rings Not Reportable 04/30/17 08:19 [place] Cells Not Reportable 04/30/17 08:19 Bite Cells Not Reportable 04/30/17 08:19 Crenated Cell Not Reportable 04/30/17 08:19 Elliptocytes Not Reportable 04/30/17 08:19 Acanthocytes (Spur) Not Reportable 04/30/17 08:19 Rouleaux Not Reportable 04/30/17 08:19 Hemoglobin C Crystals Not Reportable 04/30/17 08:19 Schistocytes Not Reportable 04/30/17 08:19 Malaria parasites Not Reportable 04/30/17 08:19 Noel Bodies Not Reportable 04/30/17 08:19 Hem Pathologist Commnt No 04/30/17 08:19 PT 18.4 Sec. (12.2-14.9) H 05/02/17 05:25 INR 1.45 (0.87-1.13) H 05/02/17 05:25 APTT 52.6 Sec. (24.2-36.6) H 04/28/17 21:55 Sodium 136 mmol/L (137-145) L 05/02/17 05:25 Potassium 3.8 mmol/L (3.6-5.0) 05/02/17 05:25 Chloride 96.3 mmol/L (98-107) L 05/02/17 05:25 Carbon Dioxide 23 mmol/L (22-30) 05/02/17 05:25 Anion Gap 21 mmol/L 05/02/17 05:25 BUN 64 mg/dL (9-20) H 05/02/17 05:25 Creatinine 9.5 mg/dL (0.8-1.5) H 05/02/17 05:25 Estimated GFR 8 ml/min 05/02/17 05:25 BUN/Creatinine Ratio 7 % 05/02/17 05:25 Glucose 103 mg/dL (75-100) H 05/02/17 05:25 POC Glucose 82 (70-105) 05/01/17 18:24 Lactic Acid 2.20 mmol/L (0.7-2.0) H* 04/30/17 14:54 Calcium 6.9 mg/dL (8.4-10.2) L 05/02/17 05:25 Ionized Calcium 3.1 mg/dL (4.8-5.6) L* 04/29/17 08:19 Total Bilirubin 6.20 mg/dL (0.1-1.2) H 05/02/17 05:25 Direct Bilirubin 5.1 mg/dL (0-0.2) H 05/02/17 05:25 Indirect Bilirubin 1.1 mg/dL 05/02/17 05:25 AST 1183 units/L (5-40) H 05/02/17 05:25 ALT 1090 units/L (7-56) H 05/02/17 05:25 Alkaline Phosphatase 117 units/L (35-129) 05/02/17 05:25 Ammonia 90.0 umol/L (25-60) H 04/29/17 06:55 Total Creatine Kinase 49559 units/L (55-170) H 05/02/17 05:25 CK-MB (CK-2) 537.2 ng/mL (0.0-4.0) H 04/29/17 10:38 CK-MB (CK-2) Rel Index 0.4 (0-4) 04/29/17 10:38 Troponin T 0.396 ng/mL (0.00-0.029) H* D 04/29/17 10:38 C-Reactive Protein 1.60 mg/dL (0.00-1.30) H 04/30/17 18:00 Total Protein 4.4 g/dL (6.3-8.2) L 05/02/17 05:25 Albumin 2.5 g/dL (3.9-5) L 05/02/17 05:25 Albumin/Globulin Ratio 1.3 % 05/02/17 05:25 Urine Creatinine 97.3 mg/dL (0.1-20.0) H 04/30/17 07:20 Urine Microalbumin 364.3 mg/dL (0.1-34.0) H 04/30/17 07:20 Microalb/Creat Ratio 3744.0 ug/mg 04/30/17 07:20 Protein/Creatinin Ratio 5.80 04/30/17 07:20 Urine Sodium 81 mmol/L 04/30/17 07:20 Urine Total Protein 564 mg/dL (5-11.8) H 04/30/17 07:20 Urine Opiates Screen Presumptive negative 04/29/17 02:43 Urine Methadone Screen Presumptive negative 04/29/17 02:43 Acetaminophen < 15.0 ug/mL (10.0-30.0) 04/29/17 10:38 Ur Barbiturates Screen Presumptive negative 04/29/17 02:43 Ur Phencyclidine Scrn Presumptive negative 04/29/17 02:43 Ur Amphetamines Screen Presumptive negative 04/29/17 02:43 U Benzodiazepines Scrn Presumptive positive 04/29/17 02:43 Urine Cocaine Screen Presumptive positive 04/29/17 02:43 U Marijuana (THC) Screen Presumptive negative 04/29/17 02:43 Drugs of Abuse Note Disclamer 04/29/17 02:43 Hepatitis A IgM Ab Non-reactive (NonReactive) 04/28/17 19:13 Hep Bs Antigen Non-reactive (Negative) 04/28/17 19:13 Hep B Core IgM Ab Non-reactive (NonReactive) 04/28/17 19:13 Hepatitis C Antibody Non-reactive (NonReactive) 04/28/17 19:13 HIV 1&2 Antibody Rapid Non react (Non React) 04/30/17 08:19 HIV P24 Antigen Non react (Non React) 04/30/17 08:19
[2017-05-02] MEDS ORDERED: NACL 0.9% 1000 ML 2,000 ML ONE (10:10)
--- NOTE | 2017-05-02 12:04 | Progress Note ---
Assessment and Plan 26-year-old man with a past medical history of polysubstance abuse which includes cocaine and alcohol and tobacco. The patient was recently just admitted to the hospital, he was found in the street agitated and confused and yelling. He was admitted for toxic metabolic encephalopathy, cocaine abuse, acute kidney injury and metabolic acidosis and non-STEMI. The patient's mentation improved and he signed himself out AGAINST MEDICAL ADVICE. Only to return to the hospital the same day complaining of not feeling well, generalized muscle pains, generalized weakness. He now presents with fulminant liver failure, acute kidney failure, non-STEMI, rhabdomyolysis and metabolic acidosis. Acute Toxic metabolic encephalopathy Fulminant hepatic failure, likely due to ischemic injury from cocaine Acute renal failure , likely due to vasomotor nephropathy and myoglobin toxicity and ischemic injury Non traumatic Rhabdomyolysis SIRS Type 2 NE Elevated INR/Coagulopathy due to liver failure Metabolic acidosis Polysubstance abuse Acute GI bleed Thrombocytopenia( multifactorial) Hypocalcemia -Continue all supportive care -Blood pressure control much better, add oral agent -Replace electrolytes -get HIT antibodies, -Supplemental oxygen for O2 sats>90% -If OK with GI service start enteral feeding -Prognosis--guarded Subjective Date of service: 05/02/17 Principal diagnosis: severe renal failure Interval history: Follow up for: SIRS, CAIO; Rhabdomyolysis; Coaine ABuse; Ischemic Hepatitis Seen and examined. Vitals, labs, medications, chart reviewed. Discussed in interdisciplinary ICU rounds. Currently getting HD , more awake and alert. He dislodged his NGT early hours of the morning. Objective - Exam Narrative Exam: General.: Appears well, no distress, nontoxic, facial edema HEENT: Moist mucous membranes, extraocular muscles intact, no lymphadenopathy Neck: supple right HD catheter Cardiac: RRR, S1-S2 heard, no murmurs, gallops or rubs Lungs: clear to auscultation bilaterally Abdomen: soft , nontender, nondistended, bowel sounds positive Extremities: no edema clubbing or cyanosis Skin: no rash or lesions, heavily tatooed. Neurologic: Moves all extremities, lethargic, obeys commands, Psych: Lethargic, obeys commands, judgment is not intact Vital Signs - 12hr 05/02/17 05/02/17 05/02/17 00:05 00:15 00:30 Temperature Pulse Rate 103 H 103 H 101 H Respiratory 29 H 29 H Rate Blood Pressure 180/85 161/81 165/79 O2 Sat by Pulse 94 95 Oximetry 05/02/17 05/02/17 05/02/17 00:45 01:00 01:15 Temperature Pulse Rate 99 H 97 H 98 H Respiratory 25 H 28 H 26 H Rate Blood Pressure 161/85 163/78 166/85 O2 Sat by Pulse 94 95 94 Oximetry 05/02/17 05/02/17 05/02/17 01:30 01:45 02:00 Temperature Pulse Rate 96 H 98 H 96 H Respiratory 28 H 29 H 27 H Rate Blood Pressure 173/84 170/83 158/78 O2 Sat by Pulse 95 94 95 Oximetry 05/02/17 05/02/17 05/02/17 02:15 02:30 02:46 Temperature Pulse Rate 97 H 104 H 97 H Respiratory 28 H 32 H 34 H Rate Blood Pressure 181/81 175/86 158/79 O2 Sat by Pulse 94 82 L Oximetry 05/02/17 05/02/17 05/02/17 03:00 03:15 03:30 Temperature Pulse Rate 90 90 96 H Respiratory 19 24 29 H Rate Blood Pressure 183/91 167/78 167/78 O2 Sat by Pulse 94 94 93 Oximetry 05/02/17 05/02/17 05/02/17 03:41 03:45 04:00 Temperature 98.8 F Pulse Rate 99 H 92 H 98 H Respiratory 26 H 25 H Rate Blood Pressure 167/78 158/76 148/71 O2 Sat by Pulse 95 96 Oximetry 05/02/17 05/02/17 05/02/17 04:16 04:30 04:45 Temperature Pulse Rate 101 H 95 H 92 H Respiratory 29 H 28 H 22 Rate Blood Pressure 166/86 148/65 157/68 O2 Sat by Pulse 94 95 95 Oximetry 05/02/17 05/02/17 05/02/17 05:00 05:14 05:15 Temperature Pulse Rate 88 93 H 94 H Respiratory 23 29 H Rate Blood Pressure 138/73 138/73 156/91 O2 Sat by Pulse 94 94 Oximetry 05/02/17 05/02/17 05/02/17 05:30 05:45 06:00 Temperature Pulse Rate 91 H 89 88 Respiratory 33 H 29 H 27 H Rate Blood Pressure 156/91 182/90 151/94 O2 Sat by Pulse 94 95 95 Oximetry 05/02/17 05/02/17 05/02/17 06:15 06:30 06:45 Temperature Pulse Rate 84 86 86 Respiratory 21 20 20 Rate Blood Pressure 157/82 178/84 152/80 O2 Sat by Pulse 94 95 94 Oximetry 05/02/17 05/02/17 05/02/17 07:00 07:16 07:30 Temperature Pulse Rate 85 70 90 Respiratory 21 24 34 H Rate Blood Pressure 157/81 157/81 157/81 O2 Sat by Pulse 95 95 95 Oximetry 05/02/17 05/02/17 05/02/17 07:46 08:00 08:15 Temperature Pulse Rate 91 H 93 H 81 Respiratory 28 H 16 29 H Rate Blood Pressure 157/81 157/81 171/96 O2 Sat by Pulse 94 94 Oximetry 05/02/17 05/02/17 05/02/17 08:30 08:45 09:00 Temperature Pulse Rate 86 91 H 79 Respiratory 24 16 29 H Rate Blood Pressure 183/96 191/101 187/101 O2 Sat by Pulse Oximetry 05/02/17 05/02/17 05/02/17 09:16 09:30 09:45 Temperature Pulse Rate 85 81 75 Respiratory 33 H 24 23 Rate Blood Pressure 225/170 182/109 193/97 O2 Sat by Pulse 98 97 Oximetry 05/02/17 05/02/17 05/02/17 10:00 10:16 10:30 Temperature Pulse Rate 88 81 76 Respiratory 20 24 20 Rate Blood Pressure 193/97 185/98 179/94 O2 Sat by Pulse 97 96 96 Oximetry 05/02/17 05/02/17 05/02/17 10:40 10:45 11:00 Temperature Pulse Rate 74 74 74 Respiratory 22 19 Rate Blood Pressure 180/92 178/93 173/89 O2 Sat by Pulse 98 97 Oximetry 05/02/17 05/02/17 05/02/17 11:15 11:30 11:45 Temperature Pulse Rate 75 77 83 Respiratory 19 20 13 Rate Blood Pressure 163/89 188/83 170/89 O2 Sat by Pulse 97 96 Oximetry CBC and BMP: 05/02/17 05:25 05/02/17 05:25 ABG, PT/INR, D-dimer: PT/INR, D-dimer PT 18.4 Sec. (12.2-14.9) H 05/02/17 05:25 INR 1.45 (0.87-1.13) H 05/02/17 05:25 Abnormal lab findings: Abnormal Labs 04/28/17 04/28/17 04/28/17 18:25 19:13 21:55 WBC 20.3 H RBC 5.29 H Hct 47.0 H D MCH Plt Count Seg Neuts % (Manual) 91.0 H Lymphocytes % (Manual) 6.0 L Seg Neutrophils # Man 18.5 H Lymphocytes # (Manual) PT 50.8 H INR 5.15 H* APTT 52.6 H Sodium Chloride Carbon Dioxide 11 L BUN 45 H Creatinine 5.8 H Glucose 67 L POC Glucose Lactic Acid Calcium 7.5 L Ionized Calcium Total Bilirubin 1.60 H Direct Bilirubin AST 2868 H ALT 719 H Alkaline Phosphatase Ammonia Total Creatine Kinase 625885 H CK-MB (CK-2) Troponin T 0.577 H* C-Reactive Protein Total Protein Albumin 3.7 L Urine Creatinine Urine Microalbumin Urine Total Protein 04/29/17 04/29/17 04/29/17 06:55 06:55 06:55 WBC 21.7 H RBC Hct MCH Plt Count Seg Neuts % (Manual) 99.0 H Lymphocytes % (Manual) 0 L Seg Neutrophils # Man 21.5 H Lymphocytes # (Manual) 0.0 L PT 51.5 H INR 5.23 H* APTT Sodium Chloride Carbon Dioxide 11 L BUN 55 H Creatinine 7.6 H Glucose 43 L POC Glucose Lactic Acid Calcium 6.3 L D Ionized Calcium Total Bilirubin Direct Bilirubin AST ALT Alkaline Phosphatase Ammonia Total Creatine Kinase CK-MB (CK-2) Troponin T C-Reactive Protein Total Protein Albumin Urine Creatinine Urine Microalbumin Urine Total Protein 04/29/17 04/29/17 04/29/17 06:55 08:19 10:38 WBC RBC Hct MCH Plt Count Seg Neuts % (Manual) Lymphocytes % (Manual) Seg Neutrophils # Man Lymphocytes # (Manual) PT INR APTT Sodium Chloride Carbon Dioxide BUN Creatinine Glucose POC Glucose Lactic Acid Calcium Ionized Calcium 3.1 L* Total Bilirubin Direct Bilirubin AST ALT Alkaline Phosphatase Ammonia 90.0 H Total Creatine Kinase 872925 H CK-MB (CK-2) 537.2 H Troponin T 0.396 H* D C-Reactive Protein Total Protein Albumin Urine Creatinine Urine Microalbumin Urine Total Protein 04/29/17 04/30/17 04/30/17 17:32 07:20 08:19 WBC 12.8 H RBC Hct MCH 27 L Plt Count Seg Neuts % (Manual) 83.0 H Lymphocytes % (Manual) 9.0 L Seg Neutrophils # Man 10.6 H Lymphocytes # (Manual) PT INR APTT Sodium Chloride Carbon Dioxide BUN Creatinine Glucose POC Glucose 55 L Lactic Acid Calcium Ionized Calcium Total Bilirubin Direct Bilirubin AST ALT Alkaline Phosphatase Ammonia Total Creatine Kinase CK-MB (CK-2) Troponin T C-Reactive Protein Total Protein Albumin Urine Creatinine 97.3 H Urine Microalbumin 364.3 H Urine Total Protein 564 H 04/30/17 04/30/17 04/30/17 08:19 08:19 14:54 WBC RBC Hct MCH Plt Count Seg Neuts % (Manual) Lymphocytes % (Manual) Seg Neutrophils # Man Lymphocytes # (Manual) PT 41.1 H INR 3.95 H APTT Sodium Chloride Carbon Dioxide 14 L BUN 84 H Creatinine 12.1 H D Glucose POC Glucose Lactic Acid 2.20 H* Calcium 6.1 L Ionized Calcium Total Bilirubin 3.10 H Direct Bilirubin 2.2 H AST 4809 H ALT 2220 H Alkaline Phosphatase 138 H Ammonia Total Creatine Kinase 351532 H CK-MB (CK-2) Troponin T C-Reactive Protein Total Protein 5.2 L D Albumin 2.9 L Urine Creatinine Urine Microalbumin Urine Total Protein 04/30/17 04/30/17 04/30/17 18:00 18:20 23:58 WBC RBC Hct MCH Plt Count Seg Neuts % (Manual) Lymphocytes % (Manual) Seg Neutrophils # Man Lymphocytes # (Manual) PT INR APTT Sodium Chloride Carbon Dioxide BUN Creatinine Glucose POC Glucose 125 H 113 H Lactic Acid Calcium Ionized Calcium Total Bilirubin Direct Bilirubin AST ALT Alkaline Phosphatase Ammonia Total Creatine Kinase CK-MB (CK-2) Troponin T C-Reactive Protein 1.60 H Total Protein Albumin Urine Creatinine Urine Microalbumin Urine Total Protein 05/01/17 05/01/17 05/01/17 05:23 07:05 07:05 WBC RBC Hct MCH Plt Count Seg Neuts % (Manual) Lymphocytes % (Manual) Seg Neutrophils # Man Lymphocytes # (Manual) PT 23.6 H INR 1.97 H APTT Sodium Chloride 96.6 L Carbon Dioxide BUN 73 H Creatinine 10.5 H Glucose 117 H POC Glucose 107 H Lactic Acid Calcium 6.4 L Ionized Calcium Total Bilirubin 5.50 H Direct Bilirubin 3.8 H AST 2262 H ALT 1717 H Alkaline Phosphatase 143 H Ammonia Total Creatine Kinase 72545 H CK-MB (CK-2) Troponin T C-Reactive Protein Total Protein 5.3 L Albumin 3.0 L Urine Creatinine Urine Microalbumin Urine Total Protein 05/02/17 05/02/17 05/02/17 05:25 05:25 05:25 WBC RBC Hct MCH Plt Count 53 L Seg Neuts % (Manual) Lymphocytes % (Manual) Seg Neutrophils # Man Lymphocytes # (Manual) PT 18.4 H INR 1.45 H APTT Sodium 136 L Chloride 96.3 L Carbon Dioxide BUN 64 H Creatinine 9.5 H Glucose 103 H POC Glucose Lactic Acid Calcium 6.9 L Ionized Calcium Total Bilirubin 6.20 H Direct Bilirubin 5.1 H AST 1183 H ALT 1090 H Alkaline Phosphatase Ammonia Total Creatine Kinase 06829 H CK-MB (CK-2) Troponin T C-Reactive Protein Total Protein 4.4 L Albumin 2.5 L Urine Creatinine Urine Microalbumin Urine Total Protein Allied health notes reviewed: nursing
[2017-05-02] MEDS ORDERED: CALCIUM CHLORIDE IVP ONE (12:08)
[2017-05-02] MEDS: NORVASC PO SCH (12:16)
[2017-05-02] MEDS ORDERED: APRESOLINE IV PRN (12:17)
[2017-05-02] MEDS ORDERED: CALCIUM CHLORIDE 1,000 MG in NACL 0.9% 100 ML IV ONE (13:00)
--- NOTE | 2017-05-02 13:37 | Progress Note ---
Assessment and Plan Optimize antihypertensive regimen. - Patient Problems (1) Rhabdomyolysis Current Visit: Yes Status: Acute (2) Acute renal failure Current Visit: Yes Status: Acute (3) Non-ST elevation myocardial infarction (NSTEMI), type 2 Current Visit: Yes Status: Acute (4) Hypertension Current Visit: Yes Status: Acute (5) Liver failure Current Visit: Yes Status: Acute (6) Coagulopathy Current Visit: Yes Status: Acute (7) Encephalopathy Current Visit: Yes Status: Acute (8) Sepsis Current Visit: Yes Status: Acute (9) Polysubstance abuse Current Visit: Yes Status: Acute Subjective Date of service: 05/02/17 Principal diagnosis: Rhabdo, ARF, NSTEMI, Liver failure, HTN Interval history: Remains confused. Objective Vital Signs Last Vital Signs Temp 98.8 F 05/02/17 12:00 Pulse 85 05/02/17 13:15 Resp 21 05/02/17 13:15 BP 178/82 05/02/17 13:15 Pulse Ox 92 05/02/17 13:00 - Physical Examination General: No Apparent Distress, Other (confused) HEENT: Positive: EOMI, Normocephaly, Mucus Membranes Moist Neck: Positive: neck supple, trachea midline Cardiac: Positive: Reg Rate and Rhythm Lungs: Positive: clear to auscultation Neuro: Positive: Other (confused) Abdomen: Positive: Soft, Active Bowel Sounds. Negative: Tender Skin: Positive: Clear. Negative: Rash Musculoskeletal: Normal Range of Motion Extremities: Present: normal. Absent: edema - Labs and Meds Cardiac Enzymes 05/02/17 Range/Units 05:25 AST 1183 H (5-40) units/L Coagulation 05/02/17 Range/Units 05:25 PT 18.4 H (12.2-14.9) Sec. INR 1.45 H (0.87-1.13) CBC 05/02/17 Range/Units 05:25 Hgb 12.6 (11.8-15.2) gm/dl Hct 37.8 (35.5-45.6) % Plt Count 53 L (140-440) K/mm3 Comprehensive Metabolic Panel 05/02/17 Range/Units 05:25 Sodium 136 L (137-145) mmol/L Potassium 3.8 (3.6-5.0) mmol/L Chloride 96.3 L (98-107) mmol/L Carbon Dioxide 23 (22-30) mmol/L BUN 64 H (9-20) mg/dL Creatinine 9.5 H (0.8-1.5) mg/dL Glucose 103 H (75-100) mg/dL Calcium 6.9 L (8.4-10.2) mg/dL Direct Bilirubin 5.1 H (0-0.2) mg/dL Indirect Bilirubin 1.1 mg/dL AST 1183 H (5-40) units/L ALT 1090 H (7-56) units/L Alkaline Phosphatase 117 (35-129) units/L Total Protein 4.4 L (6.3-8.2) g/dL Albumin 2.5 L (3.9-5) g/dL - Imaging and Cardiology EKG: image reviewed - Telemetry EKG Rhythm: Sinus Rhythm - Allied health notes Allied health notes reviewed: nursing
[2017-05-02] MEDS ORDERED: APRESOLINE PO SCH (14:00)
[2017-05-02] MEDS: PROTONIX PO SCH (14:23)
[2017-05-02] MEDS: APRESOLINE PO SCH ×2 (15:53→21:31)
--- NOTE | 2017-05-02 18:04 | Progress Note ---
Assessment and Plan Acute Toxic Metabolic Encephalopathy: -Urine drug screen (UDS) positive for cocaine -S/p CT Head without contrast showed no acute intracranial abnormality -As per primary team Elevated Troponin: Chest Pain: -Cardiology consulted -Possibly secondary to cocaine abuse and renal failure Acute Renal Failure possibly secondary to prerenal/ATN, rhabdomyolysis, worsened in setting of vomiting, diarrhea, and decreased oral intake, baseline SCr unknown: -S/p HD yesterday for gentle UF and clearance -Additional Hemodialysis treatment today for clearance only, no ultrafiltration -Assess need for HD on daily basis -Renally dose medications -Continue D5 0.45% NS infusion at 100 ml/hr -Obtain daily weight -Strict intake and output -S/p renal ultrasound showed no hydronephrosis -Vela Catheter: Yes -Renal plan discussed with Dr Herrera -Continue supportive therapy Anion Gap Metabolic Acidosis: -Initiated on Hemodialysis -Monitor labs daily Fulminant Hepatic Failure: Elevated INR: -Hepatitis panel negative -As per GI and primary team Rhabdomyolysis, suspected non-traumatic: -CK level was 96,420 today -Monitor daily CK level Polysubstance Abuse: -UDS positive for cocaine -Per primary team will provide conseling for cocaine, alcohol and tobacco -As per primary team Subjective Date of service: 05/02/17 Principal diagnosis: Rhabdo, ARF, NSTEMI, Liver failure, HTN Interval history: Patient reports having generalized mid abdominal pain, denies shortness of breath. No family at bedside Objective - Vital Signs Vital signs: Vital Signs - 12hr 05/02/17 05/02/17 05/02/17 06:15 06:30 06:45 Temperature Pulse Rate 84 86 86 Respiratory 21 20 20 Rate Blood Pressure 157/82 178/84 152/80 O2 Sat by Pulse 94 95 94 Oximetry 05/02/17 05/02/17 05/02/17 07:00 07:16 07:30 Temperature Pulse Rate 85 70 90 Respiratory 21 24 34 H Rate Blood Pressure 157/81 157/81 157/81 O2 Sat by Pulse 95 95 95 Oximetry 05/02/17 05/02/17 05/02/17 07:46 08:00 08:15 Temperature 98.4 F Pulse Rate 91 H 93 H 81 Respiratory 28 H 16 29 H Rate Blood Pressure 157/81 157/81 171/96 O2 Sat by Pulse 94 94 Oximetry 05/02/17 05/02/17 05/02/17 08:30 08:45 09:00 Temperature Pulse Rate 86 91 H 79 Respiratory 24 16 29 H Rate Blood Pressure 183/96 191/101 187/101 O2 Sat by Pulse Oximetry 05/02/17 05/02/17 05/02/17 09:16 09:30 09:45 Temperature Pulse Rate 85 81 75 Respiratory 33 H 24 23 Rate Blood Pressure 225/170 182/109 193/97 O2 Sat by Pulse 98 97 Oximetry 05/02/17 05/02/17 05/02/17 10:00 10:16 10:30 Temperature Pulse Rate 88 81 76 Respiratory 20 24 20 Rate Blood Pressure 193/97 185/98 179/94 O2 Sat by Pulse 97 96 96 Oximetry 05/02/17 05/02/17 05/02/17 10:40 10:45 11:00 Temperature Pulse Rate 74 74 74 Respiratory 22 19 Rate Blood Pressure 180/92 178/93 173/89 O2 Sat by Pulse 98 97 Oximetry 05/02/17 05/02/17 05/02/17 11:15 11:30 11:45 Temperature Pulse Rate 75 77 83 Respiratory 19 20 13 Rate Blood Pressure 163/89 188/83 170/83 O2 Sat by Pulse 97 96 Oximetry 05/02/17 05/02/17 05/02/17 12:00 12:15 12:30 Temperature 98.8 F Pulse Rate 78 76 83 Respiratory 22 20 22 Rate Blood Pressure 178/88 176/85 158/73 O2 Sat by Pulse Oximetry 05/02/17 05/02/17 05/02/17 12:45 13:00 13:15 Temperature Pulse Rate 84 90 85 Respiratory 21 21 21 Rate Blood Pressure 170/74 162/71 178/82 O2 Sat by Pulse 92 Oximetry 05/02/17 05/02/17 05/02/17 13:30 13:45 14:00 Temperature 98.8 F Pulse Rate 96 H 94 H 94 H Respiratory 12 27 H 31 H Rate Blood Pressure 162/55 160/85 160/85 O2 Sat by Pulse Oximetry 05/02/17 05/02/17 05/02/17 14:16 14:30 14:45 Temperature Pulse Rate 82 84 76 Respiratory 13 21 23 Rate Blood Pressure 160/85 160/85 180/87 O2 Sat by Pulse Oximetry 05/02/17 05/02/17 05/02/17 15:00 15:15 15:30 Temperature Pulse Rate 74 77 73 Respiratory 21 27 H 17 Rate Blood Pressure 170/82 190/85 209/104 O2 Sat by Pulse Oximetry 05/02/17 05/02/17 05/02/17 15:45 16:00 16:15 Temperature Pulse Rate 82 81 82 Respiratory 21 28 H 33 H Rate Blood Pressure 188/93 200/92 184/87 O2 Sat by Pulse Oximetry - General Appearance General appearance: well-developed (no acute distress) EENT: ATNC Neck: no JVD Respiratory: Present: Other (Lung sounds decreased bilaterally, unlabored) Cardiology: regular, S1S2, other (ACCESS: Right IJ Vas Catheter intact) Gastrointestinal: normoactive bowel sounds, tenderness Integumentary: warm and dry Neurologic: other (lethargic, arouses to verbal stimuli, oriented to person, place, and time, follows simple commands) Musculoskeletal: other (trace edema to both lower extremities) - Lab 05/02/17 05:25 05/02/17 05:25 Most recent lab results Calcium 6.9 mg/dL (8.4-10.2) L 05/02/17 05:25 Urine Creatinine 97.3 mg/dL (0.1-20.0) H 04/30/17 07:20 Urine Sodium 81 mmol/L 04/30/17 07:20 Urine Total Protein 564 mg/dL (5-11.8) H 04/30/17 07:20
[2017-05-03] MEDS: ZOFRAN IV PRN (00:02)
[2017-05-03] MEDS: D5/0.45NS 1,000 ML IV SCH (06:33)
[2017-05-03] MEDS: APRESOLINE PO SCH ×3 (06:33→22:27)
[2017-05-03 06:34] LABS: INR 1.15 (0.87-1.13)
[2017-05-03 06:40] LABS: Albumin 2.4 g/dL (3.9-5); Bilirubin,Direct 4.5 mg/dL (0-0.2); Calcium 7.6 mg/dL (8.4-10.2)
[2017-05-03] MEDS: ASPIRIN PO SCH (10:10)
[2017-05-03] MEDS: NORVASC PO SCH (10:11)
[2017-05-03] MEDS: PROTONIX PO SCH (10:11)
[2017-05-03] MEDS: LOPRESSOR PO SCH ×3 (10:14→22:28)
--- NOTE | 2017-05-03 11:29 | Progress Note ---
Assessment and Plan - Patient Problems (1) CAIO (acute kidney injury) Current Visit: No Status: Acute Plan to address problem: Acute Renal Failure possibly secondary to prerenal/ATN, rhabdomyolysis, worsened in setting of vomiting, diarrhea, and decreased oral intake, baseline SCr unknown: -Received hemodialysis yesterday. No acute indication for HD today -Assess need for HD on daily basis -Renally dose medications -Obtain daily weights -Strict intake and output -S/p renal ultrasound showed no hydronephrosis -Vela Catheter: Yes -Monitor renal function closely (2) Rhabdomyolysis Current Visit: Yes Status: Acute Plan to address problem: -Rhabdomyolysis secondary to muscle injury secondary to cocaine abuse -CK level 114,270 today noted -Will switch IVF to Sodium Bicarbonate 75 meq with 0.45% NS to infuse at 75 ml/ hr -Monitor calcium, phosphorus, potassium and CK levels daily -Monitor Intake and output, since patient is making urine will add Lasix 80 mg IV x 1 dose (3) Encephalopathy Current Visit: Yes Status: Acute Plan to address problem: Acute Toxic Metabolic Encephalopathy: -Urine drug screen (UDS) positive for cocaine -S/p CT Head without contrast showed no acute intracranial abnormality -As per primary team (4) Liver failure Current Visit: Yes Status: Acute Plan to address problem: -Elevated liver enzymes secondary to acute liver injury from polysubstance abuse -Hepatitis panel negative -GI signed off Subjective Date of service: 05/03/17 Principal diagnosis: Rhabdo, ARF, NSTEMI, Liver failure, HTN Interval history: Patient seen lying in bed. Reviewed renal plan of care with patient. Patient frequently answers phone calls from friends during visit. Objective - Vital Signs Vital signs: Vital Signs - 12hr 05/03/17 05/03/17 05/03/17 00:41 05:52 10:11 Temperature 98.4 F Pulse Rate 86 84 83 Respiratory 20 18 Rate Blood Pressure 136/82 154/94 132/82 Blood Pressure [Right] O2 Sat by Pulse 95 93 Oximetry 05/03/17 05/03/17 10:14 10:42 Temperature 97.8 F Pulse Rate 83 83 Respiratory 18 Rate Blood Pressure 132/82 Blood Pressure 132/82 [Right] O2 Sat by Pulse 97 Oximetry - General Appearance General appearance: well-developed, appears stated age EENT: ATNC, PERRL, hearing intact, vision intact Neck: no JVD, supple Respiratory: Present: Clear to Ascultation Cardiology: regular, S1S2 Gastrointestinal: normoactive bowel sounds Integumentary: warm and dry Neurologic: alert and oriented x3 Musculoskeletal: no deformities, no erythema, no cyanosis, no clubbing - Lab 05/02/17 05:25 05/03/17 05:15 Most recent lab results Calcium 7.6 mg/dL (8.4-10.2) L 05/03/17 05:15 Urine Creatinine 97.3 mg/dL (0.1-20.0) H 04/30/17 07:20 Urine Sodium 81 mmol/L 04/30/17 07:20 Urine Total Protein 564 mg/dL (5-11.8) H 04/30/17 07:20
[2017-05-03] MEDS ORDERED: LASIX IV ONE ×2 (11:33→13:00)
[2017-05-03] MEDS ORDERED: NACL 0.45% 1000 ML 1,000 ML with SODIUM BICARBONATE 75 MEQ IV SCH (12:00)
--- NOTE | 2017-05-03 12:33 | Progress Note ---
Assessment and Plan Will plan for pharmacologic stress test in AM. NPO after MN. The patient has been seen in conjunction with Dr. Michael who agrees with the assessment and plan of care. - Patient Problems (1) Rhabdomyolysis Current Visit: Yes Status: Acute (2) Acute renal failure Current Visit: Yes Status: Acute (3) Non-ST elevation myocardial infarction (NSTEMI), type 2 Current Visit: Yes Status: Acute (4) Liver failure Current Visit: Yes Status: Acute (5) Coagulopathy Current Visit: Yes Status: Acute (6) Encephalopathy Current Visit: Yes Status: Acute (7) Polysubstance abuse Current Visit: Yes Status: Acute (8) Sepsis Current Visit: Yes Status: Acute Subjective Date of service: 05/03/17 Principal diagnosis: Rhabdo, ARF, NSTEMI, Liver failure, HTN Interval history: appears alert and oriented today. c/o some gaseous distention in abdomen. Remains in SR. BPs WNL. Objective Last Vital Signs Temp 97.8 F 05/03/17 10:42 Pulse 83 05/03/17 10:42 Resp 18 05/03/17 10:42 BP 132/82 05/03/17 10:42 Pulse Ox 97 05/03/17 10:42 - Physical Examination General: No Apparent Distress HEENT: Positive: EOMI, Normocephaly, Mucus Membranes Moist Neck: Positive: neck supple, trachea midline Cardiac: Positive: Reg Rate and Rhythm, S1/S2 Lungs: Positive: clear to auscultation Neuro: Positive: Grossly Intact Abdomen: Positive: Soft, Active Bowel Sounds. Negative: Tender Skin: Positive: Clear. Negative: Rash Musculoskeletal: Normal Range of Motion Extremities: Present: normal. Absent: edema - Labs and Meds Cardiac Enzymes 05/03/17 Range/Units 05:15 AST 1262 H (5-40) units/L Coagulation 05/03/17 Range/Units 05:15 PT 15.3 H (12.2-14.9) Sec. INR 1.15 H (0.87-1.13) Comprehensive Metabolic Panel 05/03/17 Range/Units 05:15 Sodium 132 L (137-145) mmol/L Potassium 4.0 (3.6-5.0) mmol/L Chloride 93.9 L (98-107) mmol/L Carbon Dioxide 23 (22-30) mmol/L BUN 53 H (9-20) mg/dL Creatinine 8.6 H (0.8-1.5) mg/dL Glucose 109 H (75-100) mg/dL Calcium 7.6 L (8.4-10.2) mg/dL Direct Bilirubin 4.5 H (0-0.2) mg/dL Indirect Bilirubin 0.9 mg/dL AST 1262 H (5-40) units/L ALT 664 H (7-56) units/L Alkaline Phosphatase 130 H (35-129) units/L Total Protein 4.9 L (6.3-8.2) g/dL Albumin 2.4 L (3.9-5) g/dL - Imaging and Cardiology EKG: image reviewed - Telemetry EKG Rhythm: Sinus Rhythm - Allied health notes Allied health notes reviewed: nursing
--- NOTE | 2017-05-03 12:55 | Progress Note ---
Assessment and Plan Assessment and plan: 26-year-old man with h/o polysubstance abuse [cocaine and alcohol and tobacco]. The patient was recently just admitted to the hospital, he was found in the street agitated and confused and yelling. He was admitted for toxic metabolic encephalopathy, cocaine abuse, acute kidney injury and metabolic acidosis and non-STEMI. The patient's mentation improved and he signed himself out AGAINST MEDICAL ADVICE. Only to return to the hospital the same day complaining of not feeling well, generalized muscle pains, generalized weakness. He now presents with fulminant liver failure, acute kidney failure, non-STEMI, rhabdomyolysis and metabolic acidosis. Acute metabolic encephalopathy: - Utox is positive for cocaine, CT head negative Acute hepatic failure, drug induced - Elevated transaminitis, -Hepatitis panel negative GI following Acute kidney injury -Patient received emergent HD, vasc cath has been place -renal US wnl, continue HD per schedule Nontraumatic rhabdomyolysis , probably secondary to polysubstance abuse -Continue IVF, closely monitor input output SIRS - Likely reactive, no evidence of infection Coagulopathy secondary to acute liver failure --continue vitamin K daily, check INR daily INR 5.23, improved to 1.45 today Acute metabolic acidosis -sp bicarb drip, resolved, continue hemodialysis, Nephrology following Polysubstance abuse cocaine, etoh and tobacco --Counseling done strongly advised to quit recreational drug use , smoking cessation counseling done Acute upper GI bleeding - likely cal crespo tear/acute gastritis, Continue Protonix, GI following Prognosis - Guarded History Interval history: Sincerely and examined medical records reviewed Patient feels slightly better alert awake oriented 3 in no acute distress Vital signs reviewed, CK levels in the 100,000s Receiving hemodialysis per schedule Hospitalist Physical - Constitutional Vitals: Temp Pulse Resp BP Pulse Ox 97.8 F 83 18 132/82 97 05/03/17 10:42 05/03/17 10:42 05/03/17 10:42 05/03/17 10:42 05/03/17 10:42 General appearance: Present: no acute distress, cachectic - EENT Eyes: Present: PERRL, EOM intact - Neck Neck: Present: supple, normal ROM - Respiratory Respiratory effort: normal Respiratory: bilateral: diminished, rales, negative: rhonchi, wheezing - Cardiovascular Rhythm: regular Heart Sounds: Present: S1 & S2 - Extremities Extremities: no ischemia, No edema - Abdominal General gastrointestinal: soft, non-tender, non-distended, normal bowel sounds - Integumentary Integumentary: Present: clear, warm - Psychiatric Psychiatric: appropriate mood/affect, cooperative - Neurologic Neurologic: CNII-XII intact, moves all extremities Results - Labs CBC & Chem 7: 05/02/17 05:25 05/03/17 05:15 Labs: Laboratory Last Values WBC 12.8 K/mm3 (4.5-11.0) H 04/30/17 08:19 RBC 4.53 M/mm3 (3.65-5.03) 04/30/17 08:19 Hgb 12.6 gm/dl (11.8-15.2) 05/02/17 05:25 Hct 37.8 % (35.5-45.6) 05/02/17 05:25 MCV 84 fl (84-94) 04/30/17 08:19 MCH 27 pg (28-32) L 04/30/17 08:19 MCHC 33 % (32-34) 04/30/17 08:19 RDW 14.7 % (13.2-15.2) 04/30/17 08:19 Plt Count 53 K/mm3 (140-440) L 05/02/17 05:25 Add Manual Diff Complete 04/30/17 08:19 Total Counted 100 04/30/17 08:19 Seg Neutrophils % Wig Stylist 04/29/17 06:55 Seg Neuts % (Manual) 83.0 % (40.0-70.0) H 04/30/17 08:19 Band Neutrophils % 6.0 % 04/30/17 08:19 Lymphocytes % (Manual) 9.0 % (13.4-35.0) L 04/30/17 08:19 Reactive Lymphs % (Man) 0 % 04/30/17 08:19 Monocytes % (Manual) 2.0 % (0.0-7.3) 04/30/17 08:19 Eosinophils % (Manual) 0 % (0.0-4.3) 04/29/17 06:55 Basophils % (Manual) 0 % (0.0-1.8) 04/29/17 06:55 Metamyelocytes % 0 % 04/30/17 08:19 Myelocytes % 0 % 04/30/17 08:19 Promyelocytes % 0 % 04/30/17 08:19 Blast Cells % 0 % 04/30/17 08:19 Nucleated RBC % Not Reportable 04/30/17 08:19 Seg Neutrophils # Man 10.6 K/mm3 (1.8-7.7) H 04/30/17 08:19 Band Neutrophils # 0.8 K/mm3 04/30/17 08:19 Lymphocytes # (Manual) 1.2 K/mm3 (1.2-5.4) 04/30/17 08:19 Abs React Lymphs (Man) 0.0 K/mm3 04/30/17 08:19 Monocytes # (Manual) 0.3 K/mm3 (0.0-0.8) 04/30/17 08:19 Eosinophils # (Manual) 0.0 K/mm3 (0.0-0.4) 04/30/17 08:19 Basophils # (Manual) 0.0 K/mm3 (0.0-0.1) 04/30/17 08:19 Metamyelocytes # 0.0 K/mm3 04/30/17 08:19 Myelocytes # 0.0 K/mm3 04/30/17 08:19 Promyelocytes # 0.0 K/mm3 04/30/17 08:19 Blast Cells # 0.0 K/mm3 04/30/17 08:19 WBC Morphology Not Reportable 04/30/17 08:19 Hypersegmented Neuts Not Reportable 04/30/17 08:19 Hyposegmented Neuts Not Reportable 04/30/17 08:19 Hypogranular Neuts Not Reportable 04/30/17 08:19 Smudge Cells Not Reportable 04/30/17 08:19 Toxic Granulation Not Reportable 04/30/17 08:19 Toxic Vacuolation Not Reportable 04/30/17 08:19 Dohle Bodies Not Reportable 04/30/17 08:19 Pelger-Huet Anomaly Not Reportable 04/30/17 08:19 Lizette Rods Not Reportable 04/30/17 08:19 Platelet Estimate Not Reportable 04/30/17 08:19 Clumped Platelets Not Reportable 04/30/17 08:19 Plt Clumps, EDTA Not Reportable 04/30/17 08:19 Large Platelets Not Reportable 04/30/17 08:19 Giant Platelets Not Reportable 04/30/17 08:19 Platelet Satelliting Not Reportable 04/30/17 08:19 Plt Morphology Comment Not Reportable 04/30/17 08:19 RBC Morphology Not Reportable 04/30/17 08:19 Dimorphic RBCs Not Reportable 04/30/17 08:19 Polychromasia Rare 04/30/17 08:19 Hypochromasia Not Reportable 04/30/17 08:19 Poikilocytosis Few 04/30/17 08:19 Anisocytosis 1+ 04/30/17 08:19 Microcytosis Not Reportable 04/30/17 08:19 Macrocytosis Not Reportable 04/30/17 08:19 Spherocytes Not Reportable 04/30/17 08:19 Pappenheimer Bodies Not Reportable 04/30/17 08:19 Sickle Cells Not Reportable 04/30/17 08:19 Target Cells Not Reportable 04/30/17 08:19 Tear Drop Cells Not Reportable 04/30/17 08:19 Ovalocytes Not Reportable 04/30/17 08:19 Helmet Cells Not Reportable 04/30/17 08:19 [place] Bodies Not Reportable 04/30/17 08:19 [place] Rings Not Reportable 04/30/17 08:19 [place] Cells Not Reportable 04/30/17 08:19 Bite Cells Not Reportable 04/30/17 08:19 Crenated Cell Not Reportable 04/30/17 08:19 Elliptocytes Not Reportable 04/30/17 08:19 Acanthocytes (Spur) Not Reportable 04/30/17 08:19 Rouleaux Not Reportable 04/30/17 08:19 Hemoglobin C Crystals Not Reportable 04/30/17 08:19 Schistocytes Not Reportable 04/30/17 08:19 Malaria parasites Not Reportable 04/30/17 08:19 Noel Bodies Not Reportable 04/30/17 08:19 Hem Pathologist Commnt No 04/30/17 08:19 PT 15.3 Sec. (12.2-14.9) H 05/03/17 05:15 INR 1.15 (0.87-1.13) H 05/03/17 05:15 APTT 52.6 Sec. (24.2-36.6) H 04/28/17 21:55 Sodium 132 mmol/L (137-145) L 05/03/17 05:15 Potassium 4.0 mmol/L (3.6-5.0) 05/03/17 05:15 Chloride 93.9 mmol/L (98-107) L 05/03/17 05:15 Carbon Dioxide 23 mmol/L (22-30) 05/03/17 05:15 Anion Gap 19 mmol/L 05/03/17 05:15 BUN 53 mg/dL (9-20) H 05/03/17 05:15 Creatinine 8.6 mg/dL (0.8-1.5) H 05/03/17 05:15 Estimated GFR 9 ml/min 05/03/17 05:15 BUN/Creatinine Ratio 6 % 05/03/17 05:15 Glucose 109 mg/dL (75-100) H 05/03/17 05:15 POC Glucose 88 (70-105) 05/03/17 12:40 Lactic Acid 2.20 mmol/L (0.7-2.0) H* 04/30/17 14:54 Calcium 7.6 mg/dL (8.4-10.2) L 05/03/17 05:15 Ionized Calcium 3.1 mg/dL (4.8-5.6) L* 04/29/17 08:19 Total Bilirubin 5.40 mg/dL (0.1-1.2) H 05/03/17 05:15 Direct Bilirubin 4.5 mg/dL (0-0.2) H 05/03/17 05:15 Indirect Bilirubin 0.9 mg/dL 05/03/17 05:15 AST 1262 units/L (5-40) H 05/03/17 05:15 ALT 664 units/L (7-56) H 05/03/17 05:15 Alkaline Phosphatase 130 units/L (35-129) H 05/03/17 05:15 Ammonia 42.0 umol/L (25-60) 05/02/17 09:10 Total Creatine Kinase 479587 units/L (55-170) H 05/03/17 05:15 CK-MB (CK-2) 537.2 ng/mL (0.0-4.0) H 04/29/17 10:38 CK-MB (CK-2) Rel Index 0.4 (0-4) 04/29/17 10:38 Troponin T 0.396 ng/mL (0.00-0.029) H* D 04/29/17 10:38 C-Reactive Protein 1.60 mg/dL (0.00-1.30) H 04/30/17 18:00 Total Protein 4.9 g/dL (6.3-8.2) L 05/03/17 05:15 Albumin 2.4 g/dL (3.9-5) L 05/03/17 05:15 Albumin/Globulin Ratio 1.0 % 05/03/17 05:15 Urine Creatinine 97.3 mg/dL (0.1-20.0) H 04/30/17 07:20 Urine Microalbumin 364.3 mg/dL (0.1-34.0) H 04/30/17 07:20 Microalb/Creat Ratio 3744.0 ug/mg 04/30/17 07:20 Protein/Creatinin Ratio 5.80 04/30/17 07:20 Urine Sodium 81 mmol/L 04/30/17 07:20 Urine Total Protein 564 mg/dL (5-11.8) H 04/30/17 07:20 Urine Opiates Screen Presumptive negative 04/29/17 02:43 Urine Methadone Screen Presumptive negative 04/29/17 02:43 Acetaminophen < 15.0 ug/mL (10.0-30.0) 04/29/17 10:38 Ur Barbiturates Screen Presumptive negative 04/29/17 02:43 Ur Phencyclidine Scrn Presumptive negative 04/29/17 02:43 Ur Amphetamines Screen Presumptive negative 04/29/17 02:43 U Benzodiazepines Scrn Presumptive positive 04/29/17 02:43 Urine Cocaine Screen Presumptive positive 04/29/17 02:43 U Marijuana (THC) Screen Presumptive negative 04/29/17 02:43 Drugs of Abuse Note Disclamer 04/29/17 02:43 Hepatitis A IgM Ab Non-reactive (NonReactive) 04/28/17 19:13 Hep Bs Antigen Non-reactive (Negative) 04/28/17 19:13 Hep B Core IgM Ab Non-reactive (NonReactive) 04/28/17 19:13 Hepatitis C Antibody Non-reactive (NonReactive) 01/13/18 19:13 HIV 1&2 Antibody Rapid Non react (Non React) 04/30/17 08:19 HIV P24 Antigen Non react (Non React) 04/30/17 08:19
--- NOTE | 2017-05-03 13:12 | Progress Note ---
Subjective - Reason for Consult Consult date: 05/03/17 Reason for consult: Psychiatry Follow-up - Chief Complaint Chief complaint: "How are you" The patient is a 26-year-old male presenting with a chief complaint of body aches. Today the patient is calm and cooperative during the assessment. The patient stated that he has experienced some life stressors (in penitentiary recently, child support issues, and being a father to 8 childrens). He stated that his grandmother is terminally ill. He stated that he use cocaine to deal with stress (self medicate). He stated using cocaine for the past 2 years. He denies wanting to kill himself prior to his admission to the hospital. He denies ever attempting suicide in the past. He stated that he would like to seek help to stay off cocaine once discharged. He stated that he does not want to sign out AMA. He is aware that his current medical issues are serious. Mental Status Exam - Vital signs Last Vital Signs Temp 97.8 F 05/03/17 10:42 Pulse 83 05/03/17 10:42 Resp 18 05/03/17 10:42 BP 132/82 05/03/17 10:42 Pulse Ox 97 05/03/17 10:42 - Exam Narrative exam: MSE: Appearance: calm, cooperative Behavior: good eye contact Speech: regular rate and tone Mood: "better" Affect: congruent to mood Thought Process: linear Thought Content: denies SI/HI's and AVH's Motor Activity: lying in bed Cognition: A/O x3 Insight: fair Judgment: fair Assessment and Plan Impression: MDD. Substance Use DO (cocaine). Today the patient is calm and cooperative during the assessment. Medical: Acute Toxic Metabolic Encephalopathy Recommendation/Plan: Patient is willing to see a therapist and a attend rehab services once discharged. Discussed the risk/benefits of antidepressants with patient. If patient need conscious sedation for a procedure less than 10 mins and or for agitation use Thorazine 25 mg IM or a second option, Haldol 5 mg IM. Patlent's CK is elevated, only use the antipsychotics per the recommendation. If the patient need conscious sedation for more the 10 mins consult anesthesia. Will assess patient daily.
--- NOTE | 2017-05-03 21:16 | Event Note ---
Date: 05/03/17 Pulmonary note Patient has no complaint of chest pain,cough or shortness of breath. O2 saturation 97% on room air.Chest xray no acute process. Counselled him to stop smoking. Signing off the case. If any pulmonary help needed, call us back.
[2017-05-04] MEDS: LOPRESSOR PO SCH ×3 (00:19→13:39)
[2017-05-04] MEDS: APRESOLINE PO SCH ×3 (00:20→13:40)
[2017-05-04 06:41] LABS: INR 1.08 (0.87-1.13)
[2017-05-04 06:52] LABS: Albumin 2.3 g/dL (3.9-5); Bilirubin,Direct 4.1 mg/dL (0-0.2); Calcium 7.4 mg/dL (8.4-10.2)
--- NOTE | 2017-05-04 11:10 | Progress Note ---
Assessment and Plan - Patient Problems (1) CAIO (acute kidney injury) Current Visit: No Status: Acute Plan to address problem: Acute Renal Failure possibly secondary to prerenal/ATN, rhabdomyolysis, worsened in setting of vomiting, diarrhea, and decreased oral intake, baseline SCr unknown: -Hemodialysis today for UF and clearance -Assess need for HD on daily basis -Will need perm-catheter placed if long-term HD is needed -Renally dose medications -Obtain daily weights -Strict intake and output -S/p renal ultrasound showed no hydronephrosis -Vela Catheter: Yes -Monitor renal function closely (2) Rhabdomyolysis Current Visit: Yes Status: Acute Plan to address problem: -Rhabdomyolysis secondary to muscle injury secondary to cocaine abuse -CK level 13199 today from 114,270 yesterday -On Sodium Bicarbonate 75 meq with 0.45% NS @75 ml/hr -Monitor calcium, phosphorus, potassium and CK levels daily -Monitor Intake and output (3) Encephalopathy Current Visit: Yes Status: Acute Plan to address problem: Acute Toxic Metabolic Encephalopathy: -Urine drug screen (UDS) positive for cocaine -S/p CT Head without contrast showed no acute intracranial abnormality -As per primary team (4) Liver failure Current Visit: Yes Status: Acute Plan to address problem: -Elevated liver enzymes secondary to acute liver injury from polysubstance abuse -Hepatitis panel negative -GI signed off Subjective Date of service: 05/04/17 Principal diagnosis: Rhabdo, ARF, NSTEMI, Liver failure, HTN Interval history: Patient states he is nauseated and states he has been vomiting all morning. Objective - Vital Signs Vital signs: Vital Signs - 12hr 05/03/17 05/04/17 05/04/17 23:15 01:22 03:19 Temperature 98.1 F 98.4 F Pulse Rate 80 91 H Respiratory 18 18 Rate Blood Pressure 159/98 145/74 Blood Pressure [Right] O2 Sat by Pulse 96 Oximetry 05/04/17 05/04/17 08:55 10:00 Temperature 98.6 F Pulse Rate 80 80 Respiratory 20 Rate Blood Pressure Blood Pressure 160/95 [Right] O2 Sat by Pulse 96 Oximetry - General Appearance General appearance: well-developed, appears stated age EENT: ATNC, PERRL, hearing intact, vision intact Neck: no JVD, supple Respiratory: Present: Clear to Ascultation Cardiology: regular, S1S2 Gastrointestinal: normoactive bowel sounds Integumentary: warm and dry Neurologic: alert and oriented x3 Musculoskeletal: other (No edema) - Lab 05/02/17 05:25 05/04/17 05:00 Most recent lab results Calcium 7.4 mg/dL (8.4-10.2) L 05/04/17 05:00 Phosphorus 4.80 mg/dL (2.5-4.5) H 05/04/17 05:00 Urine Creatinine 97.3 mg/dL (0.1-20.0) H 04/30/17 07:20 Urine Sodium 81 mmol/L 04/30/17 07:20 Urine Total Protein 564 mg/dL (5-11.8) H 04/30/17 07:20
--- NOTE | 2017-05-04 11:42 | Progress Note ---
Assessment and Plan Pt refusing stress test this AM due to complaints of nausea and vomiting. Will continue to monitor and reattempt stress test on Sunday. The patient has been seen in conjunction with Dr. Michael who agrees with the assessment and plan of care. - Patient Problems (1) Rhabdomyolysis Current Visit: Yes Status: Acute (2) Acute renal failure Current Visit: Yes Status: Acute (3) Non-ST elevation myocardial infarction (NSTEMI), type 2 Current Visit: Yes Status: Acute (4) Liver failure Current Visit: Yes Status: Acute (5) Coagulopathy Current Visit: Yes Status: Acute (6) Encephalopathy Current Visit: Yes Status: Acute (7) Polysubstance abuse Current Visit: Yes Status: Acute (8) Sepsis Current Visit: Yes Status: Acute Subjective Date of service: 05/04/17 Principal diagnosis: Rhabdo, ARF, NSTEMI, Liver failure, HTN Interval history: pt resting in bed, lethargic. c/o nausea and vomiting blood overnight, although primary RN denies any knowledge of this. Has been NPO since MO for stress test this AM. Objective Last Vital Signs Temp 98.6 F 05/04/17 08:55 Pulse 80 05/04/17 10:00 Resp 20 05/04/17 08:55 BP 160/95 05/04/17 08:55 Pulse Ox 96 05/04/17 08:55 - Physical Examination General: No Apparent Distress HEENT: Positive: EOMI, Normocephaly, Mucus Membranes Moist Neck: Positive: neck supple, trachea midline Cardiac: Positive: Reg Rate and Rhythm, S1/S2 Lungs: Positive: clear to auscultation Neuro: Positive: Grossly Intact Abdomen: Positive: Soft, Active Bowel Sounds. Negative: Tender Skin: Positive: Clear. Negative: Rash Musculoskeletal: Normal Range of Motion Extremities: Present: normal. Absent: edema - Labs and Meds Cardiac Enzymes 05/04/17 Range/Units 05:00 AST 1121 H (5-40) units/L Coagulation 05/04/17 Range/Units 05:00 PT 14.6 (12.2-14.9) Sec. INR 1.08 (0.87-1.13) Comprehensive Metabolic Panel 05/04/17 Range/Units 05:00 Sodium 131 L (137-145) mmol/L Potassium 4.3 (3.6-5.0) mmol/L Chloride 90.7 L (98-107) mmol/L Carbon Dioxide 22 (22-30) mmol/L BUN 80 H (9-20) mg/dL Creatinine 11.0 H (0.8-1.5) mg/dL Glucose 90 (75-100) mg/dL Calcium 7.4 L (8.4-10.2) mg/dL Direct Bilirubin 4.1 H (0-0.2) mg/dL Indirect Bilirubin 0.7 mg/dL AST 1121 H (5-40) units/L ALT 416 H (7-56) units/L Alkaline Phosphatase 163 H (35-129) units/L Total Protein 4.6 L (6.3-8.2) g/dL Albumin 2.3 L (3.9-5) g/dL - Imaging and Cardiology EKG: image reviewed - Telemetry EKG Rhythm: Sinus Rhythm - Allied health notes Allied health notes reviewed: nursing
[2017-05-04] MEDS: NORVASC PO SCH (11:53)
[2017-05-04] MEDS: PROTONIX PO SCH (11:53)
[2017-05-04] MEDS: ASPIRIN PO SCH (11:53)
--- NOTE | 2017-05-04 12:43 | Progress Note ---
Subjective - Reason for Consult Consult date: 05/04/17 Reason for consult: Psychiatry Follow-up - Chief Complaint Chief complaint: "I am having lots of test" The patient is a 26-year-old male presenting with a chief complaint of body aches. Today the patient is calm and cooperative during the assessment. He stated that he is having a lot of "tests" done. He stated that he want to get better soon. He denies erratic sleep and a poor appetite. He denies SI/HI's and AVH's. Mental Status Exam - Vital signs Last Vital Signs Temp 98.6 F 05/04/17 08:55 Pulse 80 05/04/17 10:00 Resp 20 05/04/17 08:55 BP 160/95 05/04/17 08:55 Pulse Ox 96 05/04/17 08:55 - Exam Narrative exam: MSE: Appearance: calm, cooperative Behavior: good eye contact Speech: regular rate and tone Mood: "okay" Affect: congruent to mood Thought Process: linear Thought Content: denies SI/HI's and AVH's Motor Activity: lying in bed Cognition: A/O x3 Insight: fair Judgment: fair Assessment and Plan Impression: MDD. Substance Use DO (cocaine). Today the patient is calm and cooperative during the assessment. Medical: Acute Toxic Metabolic Encephalopathy Recommendation/Plan: Patient is willing to see a therapist and a attend rehab services once discharged. Discussed the risk/benefits of antidepressants with patient. If patient need conscious sedation for a procedure less than 10 mins and or for agitation use Thorazine 25 mg IM or a second option, Haldol 5 mg IM. Patlent's CK is elevated, only use the antipsychotics per the recommendation. If the patient need conscious sedation for more the 10 mins consult anesthesia. Will assess patient daily.
[2017-05-04] MEDS ORDERED: HEPARIN ONE (15:24)
--- NOTE | 2017-05-04 20:10 | Progress Note ---
Assessment and Plan Assessment and plan: 26-year-old man with h/o polysubstance abuse [cocaine and alcohol and tobacco]. The patient was recently just admitted to the hospital, he was found in the street agitated and confused and yelling. He was admitted for toxic metabolic encephalopathy, cocaine abuse, acute kidney injury and metabolic acidosis and non-STEMI. The patient's mentation improved and he signed himself out AGAINST MEDICAL ADVICE. Only to return to the hospital the same day complaining of not feeling well, generalized muscle pains, generalized weakness. He now presents with fulminant liver failure, acute kidney failure, non-STEMI, rhabdomyolysis and metabolic acidosis. Acute metabolic encephalopathy: - Utox is positive for cocaine, CT head negative Acute hepatic failure, drug induced - Elevated transaminitis, -Hepatitis panel negative GI following Acute kidney injury -Patient received emergent HD, vasc cath has been place -renal US wnl, continue HD per schedule Nontraumatic rhabdomyolysis , probably secondary to polysubstance abuse -Continue IVF, closely monitor input output SIRS - Likely reactive, no evidence of infection Coagulopathy secondary to acute liver failure --continue vitamin K daily, check INR daily INR 5.23, improved to 1.45 today Acute metabolic acidosis -sp bicarb drip, resolved, continue hemodialysis, Nephrology following Polysubstance abuse cocaine, etoh and tobacco --Counseling done strongly advised to quit recreational drug use , smoking cessation counseling done Acute upper GI bleeding - likely cal crespo tear/acute gastritis, Continue Protonix, GI following Prognosis - Guarded History Interval history: Patient seen and examined medical records reviewed Patient was scheduled for stress test this morning, however patient was ready agitated aggressive and mobile Diffuse the past, refusing medications I discussed with times with his mother on the phone wanted the patient to undergo a stress test However patient adamantly refused Says he feels better no new complaints Hospitalist Physical - Constitutional Vitals: Temp Pulse Resp BP Pulse Ox 97.7 F 66 20 169/96 20 L 05/04/17 17:07 05/04/17 18:38 05/04/17 17:07 05/04/17 18:38 05/04/17 12:42 General appearance: Present: no acute distress, cachectic - EENT Eyes: Present: PERRL, EOM intact - Neck Neck: Present: supple, normal ROM - Respiratory Respiratory effort: normal, labored Respiratory: left: CTA, bilateral: diminished, rales, rhonchi - Cardiovascular Rhythm: regular Heart Sounds: Present: S1 & S2 - Extremities Extremities: no ischemia, No edema, Full ROM - Abdominal General gastrointestinal: soft, non-tender - Integumentary Integumentary: Present: clear, warm - Psychiatric Psychiatric: appropriate mood/affect, cooperative - Neurologic Neurologic: CNII-XII intact, moves all extremities Results - Labs CBC & Chem 7: 05/02/17 05:25 05/04/17 05:00 Labs: Laboratory Last Values WBC 12.8 K/mm3 (4.5-11.0) H 04/30/17 08:19 RBC 4.53 M/mm3 (3.65-5.03) 04/30/17 08:19 Hgb 12.6 gm/dl (11.8-15.2) 05/02/17 05:25 Hct 37.8 % (35.5-45.6) 05/02/17 05:25 MCV 84 fl (84-94) 04/30/17 08:19 MCH 27 pg (28-32) L 04/30/17 08:19 MCHC 33 % (32-34) 04/30/17 08:19 RDW 14.7 % (13.2-15.2) 04/30/17 08:19 Plt Count 53 K/mm3 (140-440) L 05/02/17 05:25 Add Manual Diff Complete 04/30/17 08:19 Total Counted 100 04/30/17 08:19 Seg Neutrophils % Mental Health Consultant 04/29/17 06:55 Seg Neuts % (Manual) 83.0 % (40.0-70.0) H 04/30/17 08:19 Band Neutrophils % 6.0 % 04/30/17 08:19 Lymphocytes % (Manual) 9.0 % (13.4-35.0) L 04/30/17 08:19 Reactive Lymphs % (Man) 0 % 04/30/17 08:19 Monocytes % (Manual) 2.0 % (0.0-7.3) 04/30/17 08:19 Eosinophils % (Manual) 0 % (0.0-4.3) 04/29/17 06:55 Basophils % (Manual) 0 % (0.0-1.8) 04/29/17 06:55 Metamyelocytes % 0 % 04/30/17 08:19 Myelocytes % 0 % 04/30/17 08:19 Promyelocytes % 0 % 04/30/17 08:19 Blast Cells % 0 % 04/30/17 08:19 Nucleated RBC % Not Reportable 04/30/17 08:19 Seg Neutrophils # Man 10.6 K/mm3 (1.8-7.7) H 04/30/17 08:19 Band Neutrophils # 0.8 K/mm3 04/30/17 08:19 Lymphocytes # (Manual) 1.2 K/mm3 (1.2-5.4) 04/30/17 08:19 Abs React Lymphs (Man) 0.0 K/mm3 04/30/17 08:19 Monocytes # (Manual) 0.3 K/mm3 (0.0-0.8) 04/30/17 08:19 Eosinophils # (Manual) 0.0 K/mm3 (0.0-0.4) 04/30/17 08:19 Basophils # (Manual) 0.0 K/mm3 (0.0-0.1) 04/30/17 08:19 Metamyelocytes # 0.0 K/mm3 04/30/17 08:19 Myelocytes # 0.0 K/mm3 04/30/17 08:19 Promyelocytes # 0.0 K/mm3 04/30/17 08:19 Blast Cells # 0.0 K/mm3 04/30/17 08:19 WBC Morphology Not Reportable 04/30/17 08:19 Hypersegmented Neuts Not Reportable 04/30/17 08:19 Hyposegmented Neuts Not Reportable 04/30/17 08:19 Hypogranular Neuts Not Reportable 04/30/17 08:19 Smudge Cells Not Reportable 04/30/17 08:19 Toxic Granulation Not Reportable 04/30/17 08:19 Toxic Vacuolation Not Reportable 04/30/17 08:19 Dohle Bodies Not Reportable 04/30/17 08:19 Pelger-Huet Anomaly Not Reportable 04/30/17 08:19 Lizette Rods Not Reportable 04/30/17 08:19 Platelet Estimate Not Reportable 04/30/17 08:19 Clumped Platelets Not Reportable 04/30/17 08:19 Plt Clumps, EDTA Not Reportable 04/30/17 08:19 Large Platelets Not Reportable 04/30/17 08:19 Giant Platelets Not Reportable 04/30/17 08:19 Platelet Satelliting Not Reportable 04/30/17 08:19 Plt Morphology Comment Not Reportable 04/30/17 08:19 RBC Morphology Not Reportable 04/30/17 08:19 Dimorphic RBCs Not Reportable 04/30/17 08:19 Polychromasia Rare 04/30/17 08:19 Hypochromasia Not Reportable 04/30/17 08:19 Poikilocytosis Few 04/30/17 08:19 Anisocytosis 1+ 04/30/17 08:19 Microcytosis Not Reportable 04/30/17 08:19 Macrocytosis Not Reportable 04/30/17 08:19 Spherocytes Not Reportable 04/30/17 08:19 Pappenheimer Bodies Not Reportable 04/30/17 08:19 Sickle Cells Not Reportable 04/30/17 08:19 Target Cells Not Reportable 04/30/17 08:19 Tear Drop Cells Not Reportable 04/30/17 08:19 Ovalocytes Not Reportable 04/30/17 08:19 Helmet Cells Not Reportable 04/30/17 08:19 [employer] Bodies Not Reportable 04/30/17 08:19 Perryman Rings Not Reportable 04/30/17 08:19 Nolan Cells Not Reportable 04/30/17 08:19 Bite Cells Not Reportable 04/30/17 08:19 Crenated Cell Not Reportable 04/30/17 08:19 Elliptocytes Not Reportable 04/30/17 08:19 Acanthocytes (Spur) Not Reportable 04/30/17 08:19 Rouleaux Not Reportable 04/30/17 08:19 Hemoglobin C Crystals Not Reportable 04/30/17 08:19 Schistocytes Not Reportable 04/30/17 08:19 Malaria parasites Not Reportable 04/30/17 08:19 Noel Bodies Not Reportable 04/30/17 08:19 Hem Pathologist Commnt No 04/30/17 08:19 PT 14.6 Sec. (12.2-14.9) 05/04/17 05:00 INR 1.08 (0.87-1.13) 05/04/17 05:00 APTT 52.6 Sec. (24.2-36.6) H 04/28/17 21:55 Sodium 131 mmol/L (137-145) L 05/04/17 05:00 Potassium 4.3 mmol/L (3.6-5.0) 05/04/17 05:00 Chloride 90.7 mmol/L (98-107) L 05/04/17 05:00 Carbon Dioxide 22 mmol/L (22-30) 05/04/17 05:00 Anion Gap 23 mmol/L 05/04/17 05:00 BUN 80 mg/dL (9-20) H 05/04/17 05:00 Creatinine 11.0 mg/dL (0.8-1.5) H 05/04/17 05:00 Estimated GFR 7 ml/min 05/04/17 05:00 BUN/Creatinine Ratio 7 % 05/04/17 05:00 Glucose 90 mg/dL (75-100) 05/04/17 05:00 POC Glucose 84 (70-105) 05/04/17 15:43 Lactic Acid 2.20 mmol/L (0.7-2.0) H* 04/30/17 14:54 Calcium 7.4 mg/dL (8.4-10.2) L 05/04/17 05:00 Ionized Calcium 3.1 mg/dL (4.8-5.6) L* 04/29/17 08:19 Phosphorus 4.80 mg/dL (2.5-4.5) H 05/04/17 05:00 Total Bilirubin 4.80 mg/dL (0.1-1.2) H 05/04/17 05:00 Direct Bilirubin 4.1 mg/dL (0-0.2) H 05/04/17 05:00 Indirect Bilirubin 0.7 mg/dL 05/04/17 05:00 AST 1121 units/L (5-40) H 05/04/17 05:00 ALT 416 units/L (7-56) H 05/04/17 05:00 Alkaline Phosphatase 163 units/L (35-129) H 05/04/17 05:00 Ammonia 42.0 umol/L (25-60) 05/02/17 09:10 Total Creatine Kinase 06025 units/L (55-170) H 05/04/17 05:00 CK-MB (CK-2) 537.2 ng/mL (0.0-4.0) H 04/29/17 10:38 CK-MB (CK-2) Rel Index 0.4 (0-4) 04/29/17 10:38 Troponin T 0.396 ng/mL (0.00-0.029) H* D 04/29/17 10:38 C-Reactive Protein 1.60 mg/dL (0.00-1.30) H 04/30/17 18:00 Total Protein 4.6 g/dL (6.3-8.2) L 05/04/17 05:00 Albumin 2.3 g/dL (3.9-5) L 05/04/17 05:00 Albumin/Globulin Ratio 1.0 % 05/04/17 05:00 Urine Creatinine 97.3 mg/dL (0.1-20.0) H 04/30/17 07:20 Urine Microalbumin 364.3 mg/dL (0.1-34.0) H 04/30/17 07:20 Microalb/Creat Ratio 3744.0 ug/mg 04/30/17 07:20 Protein/Creatinin Ratio 5.80 04/30/17 07:20 Urine Sodium 81 mmol/L 04/30/17 07:20 Urine Total Protein 564 mg/dL (5-11.8) H 04/30/17 07:20 Urine Opiates Screen Presumptive negative 04/29/17 02:43 Urine Methadone Screen Presumptive negative 04/29/17 02:43 Acetaminophen < 15.0 ug/mL (10.0-30.0) 04/29/17 10:38 Ur Barbiturates Screen Presumptive negative 04/29/17 02:43 Ur Phencyclidine Scrn Presumptive negative 04/29/17 02:43 Ur Amphetamines Screen Presumptive negative 04/29/17 02:43 U Benzodiazepines Scrn Presumptive positive 04/29/17 02:43 Urine Cocaine Screen Presumptive positive 04/29/17 02:43 U Marijuana (THC) Screen Presumptive negative 04/29/17 02:43 Drugs of Abuse Note Disclamer 04/29/17 02:43 Hepatitis A IgM Ab Non-reactive (NonReactive) 04/28/17 19:13 Hep Bs Antigen Non-reactive (Negative) 04/28/17 19:13 Hep B Core IgM Ab Non-reactive (NonReactive) 04/28/17 19:13 Hepatitis C Antibody Non-reactive (NonReactive) 04/28/17 19:13 HIV 1&2 Antibody Rapid Non react (Non React) 04/30/17 08:19 HIV P24 Antigen Non react (Non React) 04/30/17 08:19
[2017-05-04 21:33] VITALS: BP 201/128
--- NOTE | 2017-05-05 10:41 | Discharge Summary ---
Providers - Providers Date of Admission: 04/28/17 21:38 Date of discharge: 05/04/17 Attending physician: SHORTY TIMMONS 04/28/17 20:39 Consult to Physician [CONS] Urgent Consulting Provider: PAL TOBAR Reason For Exam: acute renal failure, rhabdomyolysis Place consult to:: phone Notified:: y 04/28/17 21:42 Consult to Physician [CONS] Routine Consulting Provider: ABDELRAHMAN ARTEAGA Reason For Exam: NSTEMI, cocaine Place consult to:: cardiology Notified:: y Was contact made?: Yes 04/28/17 21:43 Consult to Physician [CONS] Routine Consulting Provider: SULLY DILLON Reason For Exam: transamnitis Place consult to:: [place] [facility] Notified:: Althea ACEVEDO Phone number called:: Was contact made?: Yes If yes, spoke with:: Jayy richmond Time called:: 10:29 04/29/17 06:16 Consult to Mental Health [CONS] Stat Reason For Exam: consult for drug abuse Place consult to:: mental health calibration engineer Notified:: y Phone number called:: [phone] Was contact made?: Yes If yes, spoke with:: Samuel Time called:: 06:15 Comment:: Mental Health Arabic Linguist at bedside 04/30/17 09:55 Consult to Physician [CONS] Routine Consulting Provider: SAVAGE OCONNOR Reason For Exam: Critical Care Management Place consult to:: Deandre Notified:: yes 04/30/17 11:12 Consult to Physician [CONS] Routine Consulting Provider: RAMIREZ PARK Reason For Exam: vascath placement Place consult to:: Dr Park Notified:: yes Phone number called:: [phone] Was contact made?: Yes If yes, spoke with:: Milla Time called:: 14:20 Primary care physician: HEMALATHA GARCIA Hospitalization Reason for admission: metabolic encephalopathy Condition: Serious Pertinent studies: CT head without contrast Renal ultrasound Echocardiogram CT abdomen and pelvis Vas-Cath placement Multiple chest and abdominal x-rays Hospital course: 26-year-old man with h/o polysubstance abuse [cocaine and alcohol and tobacco]. The patient was recently just admitted to the hospital, he was found in the street agitated and confused and yelling. He was admitted for toxic metabolic encephalopathy, cocaine abuse, acute kidney injury and metabolic acidosis and non-STEMI. The patient's mentation improved and he signed himself out AGAINST MEDICAL ADVICE. Only to return to the hospital the same day complaining of not feeling well, generalized muscle pains, generalized weakness. He now presents with fulminant liver failure, acute kidney failure, non-STEMI, rhabdomyolysis and metabolic acidosis. Discharge diagnosis and management; Acute metabolic encephalopathy: - Utox is positive for cocaine, CT head negative supportive care Acute hepatic failure, drug induced - Elevated transaminitis, -Hepatitis panel negative, GI evaluated the patient Acute kidney injury -Patient received emergent HD, vasc cath has been placed -renal US wnl, and on maintenance hemodialysis Nontraumatic rhabdomyolysis , probably secondary to polysubstance abuse CK more than 100,000 , seemed IV fluids SIRS- Likely reactive, no evidence of infection Coagulopathy secondary to acute liver failure --continue vitamin K daily, check INR daily INR 5.23, improved to 1.45 today Acute metabolic acidosis On hemodialysis, Nephrology following Polysubstance abuse cocaine, etoh and tobacco --Counseling done strongly advised to quit recreational drug use , smoking cessation counseling done Acute upper GI bleeding - likely cal crespo tear/acute gastritis, Continue Protonix, GI following Prognosis - Guarded Patient was very noncompliant, refused stress test, refused medications, As per medical records, patient refused to stay in the hospital and left AGAINST MEDICAL ADVICE Caregivers explained the risks and consequences of leaving AGAINST MEDICAL ADVICE discussed with the patient he verbalized understanding I was not present when patient left AMA Information is obtained from the medical records Disposition: [id number] LEFT AGAINST MED ADVICE Time spent for discharge: 31 min Core Measure Documentation - Palliative Care Palliative Care/ Comfort Measures: Not Applicable - Core Measures Any of the following diagnoses?: none Exam - Physical Exam Narrative exam: left AGAINST MEDICAL ADVICE - Constitutional Vitals: Temp Pulse Resp BP Pulse Ox 97.6 F 86 20 201/128 96 05/04/17 21:33 05/04/17 21:33 05/04/17 21:33 05/04/17 21:33 05/04/17 21:33 Plan Additional Instructions: Left AMA Follow up with: HEMALATHA GARCIA MD [Primary Care Provider] - 3-5 Days Forms: AMA Form
[2017-05-07 09:15] LABS: Heparin-Induced Platelet Antib Negative (Negative); Unfractionated Heparin Negative (Negative)
== END 2017-05-04 21:32 | disposition left against medical advice (07) | DRG 280 ==
LOC: ED 17:07 → 4A 21:38 → CC1 04-30 06:47 → 4A 05-02 23:29
PROVIDERS: ADMIT Internal Medicine; ATTEND Internal Medicine
PROC: 02H633Z Insertion of Infusion Device into Right Atrium, Percutaneous Approach (ICD-10-PCS; principal; 2017-04-30)
PROC: B244ZZZ Ultrasonography of Right Heart (ICD-10-PCS; 2017-04-30)
PROC: 5A1D70Z Performance of Urinary Filtration, Intermittent, Less than 6 Hours Per Day (ICD-10-PCS; 2017-04-30)
PROC: 5A1D70Z Performance of Urinary Filtration, Intermittent, Less than 6 Hours Per Day (ICD-10-PCS; 2017-05-01)
PROC: 5A1D70Z Performance of Urinary Filtration, Intermittent, Less than 6 Hours Per Day (ICD-10-PCS; 2017-05-02)
PROC: 5A1D70Z Performance of Urinary Filtration, Intermittent, Less than 6 Hours Per Day (ICD-10-PCS; 2017-05-04)
DX: I21.A1 Myocardial infarction type 2 (principal); G92 Toxic encephalopathy; N17.9 Acute kidney failure, unspecified; M62.82 Rhabdomyolysis; E87.2 Acidosis; K92.2 Gastrointestinal hemorrhage, unspecified; D68.9 Coagulation defect, unspecified; R65.10 Systemic inflammatory response syndrome (SIRS) of non-infectious origin without acute organ dysfunction; F14.159 Cocaine abuse with cocaine-induced psychotic disorder, unspecified; D72.829 Elevated white blood cell count, unspecified; F17.200 Nicotine dependence, unspecified, uncomplicated; J42 Unspecified chronic bronchitis; K72.90 Hepatic failure, unspecified without coma; E83.51 Hypocalcemia; F32.9 Major depressive disorder, single episode, unspecified
CPT/HCPCS: 36415; 70450; 71045; 74018; 74176; 76700; 76770; 80048; 80053; 80074; 80307; 80320; 82043; 82140; 82330; 82550; 82553; 82570; 82962; 84100; 84156; 84300; 84484; 85007; 85014; 85018; 85025; 85049; 85610; 85730; 86022; 86140; 87806; 93005; 93010; 93306; 96361; 96372; 96374; 96375; 99285; 99406; C9113; G0480; J0360; J1644; J1940; J2060; J2405; J3430; J7030; J7050; J7070